=== PATIENT | female | born 1950 | race Caucasian/White ===

== ENCOUNTER → 2017-07-13 12:46 | Outpatient (CLI) | payer MEDICARE, SELFPAY ==
--- NOTE | 2017-07-14 06:25 | PFTCOMP ---
COMPLETE PULMONARY FUNCTION TEST INTERPRETATION Brief HPI: Patient is a 67 year old female, currently under the care of myself, who presents to [facility] for complete pulmonary function tests secondary to diagnosis of dyspnea. Respiratory therapist reports good effort and reproducible results. Interpretation: Forced expiration spirometry shows a mild large airways obstructive ventilatory defect with an FEV1 of 73 % predicted. There is no significant bronchodilator response by ATS criteria. Spirograms are of good quality and plateau slowly, indicating slowly emptying areas of the lungs. The respiratory flow volume loop shows decreased expiratory flow rates at all lung volumes consistent with airway obstruction. Lung volumes by body plethysmography show a normal total lung capacity at 4.36, 98 % predicted. All other lung volumes are within normal limits. Diffusion capacity by carbon monoxide is decreased at 55 % predicted. The airway resistance is normal. Compared to previous pulmonary function tests from 08/07/2013, there has been a significant change in FVC, FEV1 and total lung capacity. However, patient's DLCO is significantly reduced compared to previous. Impression: Irreversible mild large airways obstructive ventilatory defect with reduction diffusing capacity consistent with the diagnosis of COPD. There has been some improvement since 2013, but decreased DLCO may be secondary to a pulmonary vascular disorder.
== END ==
PROVIDERS: Family Provider Family Medicine; PCP Family Medicine; Visit Provider Internal Medicine Critical Care Medicine
DX: R06.02 Shortness of breath (principal); R06.00 Dyspnea, unspecified; R06.01 Orthopnea
CPT/HCPCS: 94060; 94726; 94729

== ENCOUNTER → 2017-07-30 13:22 | Outpatient (CLI) | payer MEDICARE, SELFPAY ==
--- NOTE | 2017-07-30 13:25 | HPBI_ITS ---
MAMMOGRAPHY - BILATERAL DIAGNOSTIC REASON FOR EXAM: Female, 67 years old. Remote left excisional breast biopsy. PERTINENT HISTORY: Non-contributory. TECHNIQUE: Digital bilateral breast deshawn (3D mammographic acquisition) in the CC and MLO projections. 2-D mediolateral oblique (MLO) and craniocaudad (CC) views of both breasts were obtained. CAD: Full Field Digital Mammography with Computer Added Detection was performed. COMPARISON: Comparison is made with prior examination dated August 27, 2012 and June 06, 2010. FINDINGS: Breast Composition: There are scattered areas of fibroglandular density. There are no dominant masses or suspicious calcifications. Stable benign-appearing bilateral axillary lymph nodes. No other significant abnormalities are identified. There has been no significant change since the prior study. HPBI/SCREENING MAMM (CAD), BILAT IMPRESSION: Stable bilateral diagnostic mammogram. One year follow-up recommended. (A) ASSESSMENT CATEGORY: BIRADS Category 2: Benign. A letter regarding these results will be sent to the patient by the facility within 30 days. Approximately 10% of breast cancers are not detected by mammography. A normal mammogram should not delay biopsy of a clinically suspicious abnormality. Electronically Signed: Jeyson Merritt MD at 15:30 EST Tel [phone], Service support ,
== END ==
PROVIDERS: Family Provider Family Medicine; PCP Family Medicine; Visit Provider Nurse Practitioner Women's Health
DX: Z12.31 Encounter for screening mammogram for malignant neoplasm of breast (principal)
CPT/HCPCS: 77063; 77067

== ENCOUNTER → 2017-11-20 12:10 | Outpatient (CLI) | payer MEDICARE, SELFPAY ==
--- NOTE | 2017-11-20 12:10 | DT_ITS ---
This patient was seen during an EMR downtime November 19, 2017 - November 26, 2017. This patient may have a combination of paper and electronic documentation or all paper documentation. All documentation is viewable within the e-chart portion of [employer] for each patient visit.
[2017-11-25 08:28] LABS: ALB/GLOB Ratio 0.9 RATIO (0.9-2.4); AST(SGOT) 26 U/L (15-37); Alanine Aminotransfer ALT/SGPT 39 U/L (13-56); Albumin, Serum 3.3 g/dL (3.2-5.0); Alkaline Phosphatase 117 U/L (45-117); BUN 16 mg/dL (7-18); BUN/Creat Ratio 16.8 RATIO (10-20); Calcium,Total 8.9 mg/dL (8.5-10.1); Creatinine, Serum 0.95 mg/dL (0.55-1.02); EST Glomerular Filtration Rate 62 mL/min (>60); Est Glom Filt Rate - Afr Amer 75 mL/min (>60); Globulin 3.5 g/dL (2.2-4.2); Glucose 191 mg/dL (74-106); Protein, Total 6.8 g/dL (6.4-8.2)
[2017-11-25 08:29] LABS: Anion Gap 10 (5-15); Chloride 99 mmol/L (98-107); Cholesterol 137 mg/dL (200); Hemoglobin A1c 9.9 % (4.2-6.3); High Density Lipoprotein 42 mg/dL; Potassium 3.8 mmol/L (3.5-5.1); Sodium Level 140 mmol/L (136-145); Thyroid Stim Hormone (TSH) 3.27 uIU/mL (0.358-3.74); Triglycerides 396 mg/dL; Very Low Density Lipoprotein 79 mg/dL (5-40)
[2017-11-25 19:31] LABS: Vitamin D,25 Hydroxy 43.7 ng/mL (29.95-100.01)
== END ==
LOC: MTLAB 11-24 08:43 → MFPLAB 11-24 17:14
PROVIDERS: Family Provider Family Medicine; PCP Family Medicine; Visit Provider Family Medicine
DX: E11.9 Type 2 diabetes mellitus without complications (principal); E55.9 Vitamin D deficiency, unspecified
CPT/HCPCS: 80053; 80061; 82306; 83036; 84443

== ENCOUNTER 2018-01-19 16:34 | Emergency (ER) | payer MEDICARE, SELFPAY ==
[2018-01-19 16:35] VITALS: BP 154/93; PULSE 87; RESP 16; TEMP 36.2; O2SAT 99; BMI 38.4
--- NOTE | 2018-01-19 17:20 | EKG12_ITS ---
Test Reason : DIZZNESS Blood Pressure : / mmHG Vent. Rate : 078 BPM Atrial Rate : 078 BPM P-R Int : 164 ms QRS Dur : 074 ms QT Int : 372 ms P-R-T Axes : 053 004 050 degrees QTc Int : 424 ms Normal sinus rhythm Normal ECG Confirmed by VARUN REDD, ABIGAIL ([id number]), general expeditor DEVIKA CASTELLANOS ([id number]) on 01/21/2018 1:34:35 PM Referred By: Catie Bucio Confirmed By:ABIGAIL BOND MD
[2018-01-19] MEDS: 0.9% Normal Saline 1,000 ML 1000 ML IV (17:41)
[2018-01-19 17:43] LABS: Absolute Lymphocyte Count 2.32 X10^3/ul (0.83-4.51); Absolute Neutrophil Count 4.8 X10^3/uL (2.0-7.7); Basophil# 0.02 X10^3/uL; Basophil% 0.2 % (0-1); Eosinophil# 0.13 X10^3/uL; Eosinophils% 1.6 % (0-5); Hematocrit 41.6 % (37-47); Hemoglobin 13.7 g/dl (12.0-15.0); Lymphocyte # 2.32 X10^3/ul (4.0); Lymphocyte % 28.9 % (19-41); Mean Corp Hgb Conc 32.9 g/gl (32-36); Mean Corpuscular Hgb 31.2 pg (27.0-32.0); Mean Corpuscular Volume 94.8 fL (81-99); Mean Platelet Vol. 11.7 fl (6.2-12.0); Monocyte# 0.73 X10^3/uL; Monocyte% 9.1 % (0-10); Neutrophil # 4.81 X10^3/uL (2.7-7.7); POSITIVE COUNT NO; POSITIVE DIFFERENTIAL NO; POSITIVE MORPHOLOGY NO; Platelet Count 268 K/mm3 (150-450); RBC Distribution Width CV 13.8 % (11.6-14.6); RBC Distribution Width SD 47.5 fl (35.1-43.9); Red Blood Count 4.39 M/mm3 (4.2-5.4)
[2018-01-19 17:49] LABS: Anion Gap 6 (5-15); BUN 16 mg/dL (7-18); Calcium,Total 9.5 mg/dL (8.5-10.1); Chloride 100 mmol/L (98-107); Creatinine, Serum 0.89 mg/dL (0.55-1.02); EST Glomerular Filtration Rate 67 mL/min (>60); Est Glom Filt Rate - Afr Amer 81 mL/min (>60); Estimated Creatinine Clearance 48.51 ml/min; Glucose 155 mg/dL (74-106); Potassium 3.8 mmol/L (3.5-5.1); Sodium Level 136 mmol/L (136-145)
[2018-01-19 17:53] LABS: Bacteria 0 SEEN /hpf (None Seen); Mucous, Urine 0 SEEN /hpf (<or=2+); Red Blood Cells-Urine 0 SEEN /hpf (0-5); White Blood Cells 0 SEEN /hpf (0-5)
[2018-01-19 17:59] LABS: Color, Urine Yellow (Yellow); Glucose, Dipstick Normal (Normal); Ketone-Dipstick Negative (Negative); Leukocyte Esterase-Dipstick Negative /ul (Negative); Nitrite-Dipstick Negative (Negative); Occult Blood-Urine Negative /ul (Negative); Protein-Dipstick Negative (Negative); Specific Gravity, Urine 1.005 (1.002-1.030); Urine Bilirubin Dipstick Negative (Negative); Urine Clarity Clear (Clear); Urine Urobilinogen Normal (Normal); Urine pH 6.5 (5.0 - 8.0)
[2018-01-19] MEDS: Ondansetron 4 MG/2 ML Vial IV (18:00)
[2018-01-19 18:14] LABS: Squamous Epithelial Cells - UA 0-5 SEEN /hpf (5-10)
--- NOTE | 2018-01-19 19:09 | ED.VISSUMM ---
- ER Visit Summary Date of Service: 01/19/18 Chief Complaint: Dizzy, nauseated History of Present Illness: The patient is a 67 F [place]. She slept until 130 this afternoon. Since getting up she has felt dizzy and nauseated. She describes it as both a lightheaded sensation and some spinning motion. She denies palpitations or chest pain. She denies headache. Past history significant for COPD, diabetes, hypertension, high cholesterol, spinal stenosis, hypothyroidism, sleep apnea. Physical Examination: Vital signs include blood pressure 154/93, otherwise normal. Patient sitting upright in bed no acute distress. Head neck examination is unremarkable. I do not appreciate any nystagmus. Heart is regular rate and rhythm. Lung sounds are clear. Abdomen is soft nontender. Neuro exam reveals good strength and sensation throughout on testing. Test Results: CBC and chemistry studies are significant only for glucose of 155. Urinalysis is normal. EKG is sinus at 78 with no sign of acute ischemia. Emergency Department Course and Treatment: Patient was given IV fluids and Zofran. On repeat evaluation she has been able to rest. Family states any time he tried to sit the back of the bed up she became more dizzy and want to lie back. She will be given a dose of Valium. On repeat evaluation patient feels significantly improved. She is able to walk to the bathroom and back without difficulty. She be given a prescription for Valium at home as needed for dizziness/vertigo. Treatment Plan: [] Disposition: Discharge Impression: Vertigo, improved This note was generated with [employer] dictation software. It may contain incorrect words, spelling, and punctuation that were not noted in review of the chart prior to signing ED Disposition - Plan for ED Patient: Disposition: Home or Assisted Living Chief Complaint: Dizziness Instructions: ED Vertigo Unspecified Prescriptions: Diazepam [Valium] 2 mg PO TID PRN PRN #10 tablet PRN Reason: Vertigo Referrals: Tom Mendez MD [Primary Care Provider] - 1 Week
[2018-01-19] MEDS: diazePAM 5 MG Tablet 2.5 MG PO (19:23)
[2018-01-19] MEDS: 0.9% Normal Saline 1,000 ML 150 ML IV (19:26)
[2018-01-19 19:44] VITALS: BP 124/64; PULSE 74; RESP 16; O2SAT 98
[2018-01-19 20:30] VITALS: BP 130/64; PULSE 83; RESP 16; O2SAT 96
--- NOTE | 2018-01-19 20:35 | ED.DEP ---
ED Disposition - Plan for ED Patient: Disposition: Home or Assisted Living Chief Complaint: Dizziness Instructions: ED Vertigo Unspecified Prescriptions: Diazepam [Valium] 2 mg PO TID PRN PRN #10 tablet PRN Reason: Vertigo Referrals: Tom Mendez MD [Primary Care Provider] - 1 Week
[2018-01-19 20:46] VITALS: BP 140/85; RESP 15; O2SAT 98
--- NOTE | 2018-01-19 20:47 | ED.RN ---
THIS RN EDUCATED PT AND FAMILY ON D/C INSTRUCTIONS AND HOME GOING PRESCRIPTIONS. PT VERBALIZES UNDERSTANDING AND DENIES ANY FURTHER QUESTIONS. IV D/C AND COVERED WITH 2X2 GAUZE DRESSING AND PAPER TAPE. MINIMAL BLEEDING NOTED. PT DRESSES SELF AND AMBULATES OUT OF DEPT WITH FAMILY.
== END 2018-01-19 20:50 | disposition home or self-care (01) ==
PROVIDERS: Emergency Provider Emergency Medicine; Family Provider Family Medicine; PCP Family Medicine
DX: R42 Dizziness and giddiness (principal); J44.9 Chronic obstructive pulmonary disease, unspecified; E11.9 Type 2 diabetes mellitus without complications; I10 Essential (primary) hypertension; E78.00 Pure hypercholesterolemia, unspecified; E03.9 Hypothyroidism, unspecified; M48.00 Spinal stenosis, site unspecified; G47.33 Obstructive sleep apnea (adult) (pediatric); Z72.0 Tobacco use; Z79.84 Long term (current) use of oral hypoglycemic drugs; Z79.899 Other long term (current) drug therapy
CPT/HCPCS: 80048; 81001; 85025; 93005; 96361; 96374; 99284; J7030; A4216; J2405

== ENCOUNTER → 2018-05-30 17:18 | Outpatient (CLI) | payer MEDICARE, SELFPAY ==
--- NOTE | 2018-05-30 17:21 | RAD_ITS ---
STUDY: X-RAY CHEST REASON FOR EXAM: Female, 68 years old. Cough TECHNIQUE: PA and lateral COMPARISON: June 16, 2017 FINDINGS: Bilateral perihilar interstitial reticulonodular infiltrates greater on the right. There is no demonstrated pleural abnormality. Heart is mildly enlarged Normal mediastinum and cindy. Normal visualized pulmonary arteries. Normal visualized aortic arch and descending thoracic aorta. Dorsal spine demonstrates spondylosis. Normal visualized ribs, clavicles, and shoulders. There is no demonstrated abnormality of the visualized soft tissue structures of the upper abdomen. RAD/Chest PA and Lateral IMPRESSION: Probable viral pneumonia greater on the right Electronically Signed: Terrence Castro MD at 18:31 EST , Service support ,
--- OUTSIDE RECORDS SUMMARY | 2018-07-16 14:33 | XMS RPT_ITS ---
:1950 Author Organization OHIP Support Name Relationship Address Phone MARYCRUZ MIX Unavailable [address] + [place] [address] R Unavailable Unavailable Unavailable MARIA DEL ROSARIOMARYCRUZ WANG Unavailable [address] + [place] [address] R Unavailable Unavailable Unavailable MARIA DEL ROSARIOMARYCRUZ WANG Unavailable [address] + [place] [address] R Unavailable Unavailable Unavailable MARIA DEL ROSARIOMARYCRUZ WANG Unavailable [address] + [place] [address] R Unavailable Unavailable Unavailable MARIA DEL ROSARIOMARYCRUZ Unavailable [address] + [place] [address] R Unavailable Unavailable Unavailable MARIA DEL ROSARIOMARYCRUZ Unavailable [address] + [place] [address] R Unavailable Unavailable Unavailable MARIA DEL ROSARIOMARYCRUZ WANG Unavailable [address] + [place] [address] R Unavailable Unavailable Unavailable MARIA DEL ROSARIOMARYCRUZ WANG Unavailable [address] + [place] [address] R Unavailable Unavailable Unavailable MARIA DEL ROSARIOMARYCRUZ WANG Unavailable [address] + [place] [address] R Unavailable Unavailable Unavailable MARIA DEL ROSARIOMARYCRUZ Unavailable [address] + [place] [address] R Unavailable Unavailable Unavailable MARIA DEL ROSARIOMARYCRUZ WANG Unavailable [address] + [place] [address] R Unavailable Unavailable Unavailable Care Team Providers Name Role Phone HARI URBINA Referring Unavailable HARI URBINA Attending Unavailable HARI URBINA Referring Unavailable GUANACO PANCHAL (TIERRA) Attending Unavailable Scott Mendez Attending Unavailable Scott Mendez Referring Unavailable Scott Mendez Primary Care Unavailable Scott Mendez Attending Unavailable Scott Mendez Referring Unavailable Ranney, Christopher Primary Care Unavailable Saul, Rohit Attending Unavailable Asul, Rohit Referring Unavailable [facility] Unavailable [place] schrader Attending Unavailable Ranwashburn, Wooldridge Primary Care Unavailable Ranwashburn, [place] Primary Care Unavailable Remington Conte Attending Unavailable Ranney, Christopher Attending Unavailable Ranney, Christopher Referring Unavailable [facility], [facility] Unavailable Saul, Rohit Attending Unavailable Saul, Rohit Referring Unavailable Saul, Rohit Attending Unavailable Ranney, Christopher Referring Unavailable Ranney, Christopher Attending Unavailable [facility] Unavailable [facility] Unavailable Catie Bucio Attending Unavailable Bucio, Catie Referring Unavailable Saul, Rohit Attending Unavailable Ranney, Christopher Referring Unavailable PROBLEMS PROBLEMS DATE TYPE CONDITION / CODE ATTENDING STATUS SOURCE 07/03/2018 Unknown 250.00 - Diabetes Ranney, Active [place] mellitus without [facility] mention of Hospital complication, type Repository II or unspecified type, not stated as uncontrolled / 250.00(ICD-9) 07/03/2018 Unknown E11.9 - Type 2 Ranney, Active [place] diabetes mellitus [facility] without Hospital complications / Repository E11.9(ICD-10) 05/31/2018 Unknown M79.661 - Pain in Ransavana, Active [place] right lower leg / [facility] M79.661(ICD-10) Hospital Repository 12/18/2017 Active Pain, unspecified / NA Active [place] R52(ICD-10) Clinic Other [place] Repository 07/25/2017 Unknown Z12.31 - Encounter Trang Dhillon Active [place] for screening Community mammogram for Hospital malignant neoplasm Repository of breast / Z12.31(ICD-10) 07/13/2017 Unknown R06.02 - Shortness Rohit Hughes Active [place] of breath / Community R06.02(ICD-10) Hospital Repository 07/13/2017 Unknown R06.00 - Dyspnea, SaulRohit veras Active [place] unspecified / Community R06.00(ICD-10) Hospital Repository 07/13/2017 Unknown R06.01 - Orthopnea Rohit Hughes Active [place] / R06.01(ICD-10) [facility]ly [facility] Repository PROCEDURES PROCEDURES No Procedure Records FoundRESULTS RESULTS BASIC METABOLIC Collected: 07/03/2018 Status: F Source: BILL PROFILE (BMP) 8:[facility] AM [facility] Order Comment: Order Date: 02/26/18 Order Info: 0667-1 - BMP Order Info: 84158-6 - LIPID TYPE CODE TESTS RESULT OUT OF RANGE REFERENCE UNITS LAB L501.0100 74-106 mg/dL High GLU 169 Result Comment: Fasting Glucose result greater than or equal to 126 mg/dL suggests DIABETES MELLITUS per A.D.A. criteria. Please note revised GLUCOSE reference range effective 2017. LAB L501.1000 7-18 mg/dL High BUN 21 LAB L501.1100 0.55-1.02 mg/dL Normal CREAT,SERUM 0.87 Result Comment: The validity of the calculated GFR AND GFRAA in patients over 70 years has not been determined. Clinical correlation is essential. LAB L501.1110 >60 mL/min Normal EST GFR 69 Result Comment: Non- GFR Calc LAB L501.1115 >60 mL/min Normal EST GFR - AA 84 Result Comment: GFR Calc LAB L501.1300 10-20 RATIO High BUN/CRE 24.2 LAB L501.2200 8.5-10.1 mg/dL CA Normal 9.1 LAB L501.5300 136-145 mmol/L NA Normal 138 LAB L501.5600 3.5-5.1 mmol/L K Normal 4.0 LAB L501.5900 98-107 mmol/L CL Normal 100 LAB L501.6100 21.0-32.0 mmol/L Normal CO2 29.0 LAB L501.6200 5-15 Normal GAP 9 Performed By: #### L500.2500, L500.4100 #### [facility] [address] [place], [address] LIPID PROFILE Collected: 07/03/2018 Status: F Source: BILL 8:56 AM [facility] REPOSITORY Order Comment: Order Date: 02/26/18 Order Info: 0667-1 - BMP Order Info: 31764-0 - LIPID TYPE CODE TESTS RESULT OUT OF RANGE REFERENCE UNITS LAB L501.4900 200 mg/dL Normal CHOL 184 Result Comment: <200 mg/dL Desirable 200-240 mg/dL Borderline >240 mg/dL High Risk LAB L501.5000 mg/dL High TRIG 435 Result Comment: The drugs N-Acetylcysteine and Metamizole may falsely depress this assay. TRIGLYCERIDE IS GREATER THAN 400 mg/dL. LDL RESULT IS INVALID AND WILL NOT BE REPORTED. Serum Triglycerides Reference Interval Normal <150 mg/dL Borderline high 150 - 199 mg/dL High 200 - 499 mg/dL Very High > or = 500 mg/dL LAB L501.6400 mg/dL Normal HDL 45 Result Comment: The drugs N-Acetylcysteine and Metamizole may falsely depress this assay. Reference Range HDL <40 mg/dL Low HDL Cholesterol HDL >or= 60 mg/dL High HDL Cholesterol LAB L501.6500 0-130 mg/dL Test Normal not performed LDL LAB L501.6600 5-40 mg/dL Test Normal not performed VLDL Performed By: #### L500.2500, L500.4100 #### [facility] [address] [place], [address] 12 LEAD ELECTROCARDIOGRAM Observed: 06/05/2018 Status: F Source: [place] 3:34 PM [facility] REPOSITORY [facility] Cardiovascular Services [address] [place] [address] 12 Lead EKG 05/31/18 1447 MR#: [id number] Acct: [id number] Name: ABBI SHOOK Rep #: [id number] : 1950 68 From: Edward Merrill MD Attending Dr: Status: DEP Ordering Dr: Remington Conte MD Date: 05/31/18 Location: ED Sex: F C Admitted: Test Reason : ABN LABS Blood Pressure : / mmHG Vent. Rate : 081 BPM Atrial Rate : 081 BPM P-R Int : 166 ms QRS Dur : 080 ms QT Int : 386 ms P-R-T Axes : 066 048 063 degrees QTc Int : 448 ms Normal sinus rhythm Normal ECG Confirmed by EDWARD MERRILL MD ([id number]), staff editor DEVIKA CASTELLANOS ([id number]) on 06/05/2018 3:34:23 PM Referred By: DC Confirmed By:EDWARD MERRILL MD 06/05/18 1534 Date Edward Merrill MD CC: Scott Mendez MD; Remington Conte MD Signed VENOUS DUPLEX LOWER Observed: 06/01/2018 Status: F Source: BILL EXTREMITY 1:46 PM [facility] REPOSITORY [facility] Cardiovascular Services [address] [address] Venous Duplex US, Unilateral 05/31/18 1112 MR#: [id number] Acct: [id number] Name: ABBI SHOOK Rep #: [id number] : 1950 68 From: Slim Jacobson MD Attending Dr: Scott Mendez MD Status: REG CLI Ordering Dr: Tom Mendez MD Date: 05/31/18 Location: CVS Sex: F C Admitted: Reason For Study: RLE PAIN (CALF) RIGHT LEFT GSV is normal. CFV is compressible, spontaneous, phasic, CFV is compressible, spontaneous, phasic, competent, and demonstrates normal competent and demonstrates normal augmentation. augmentation. FV is compressible, spontaneous, phasic, competent and demonstrates normal augmentation. POP V is compressible, spontaneous, phasic, competent and demonstrates normal augmentation. T/P Trunk is compressible. PTV is compressible. RT PerV is compressible. Procedure Exam performed in department. The exam was diagnostic. A preliminary report was called and/or faxed to Andrea Muir @ 11:25 am @ [phone]. Interpretation Summary Deep veins of the right lower extremity are patent and compressible segmentally. There is no evidence of right lower extremity deep vein thrombosis. Valvular competence appears intact within the proximal deep venous system on the right . The right greater saphenous vein appears patent and compressible segmentally. Ordering Physician: Scott Mendez Referring Physician: Scott Mendez Performed By: Marbella Hilliard, RDCS, RVT 06/01/18 1345 Date Slim Jacobson MD CC: Scott Mendez MD Date Dictated: 05/31/18 1112 Date Transcribed: 06/01/18 1345 Ship Runner: Signed DISCHARGE INSTRUCTION Observed: 05/31/2018 Status: F Source: BILL 4:14 PM [facility] HOSPITAL REPOSITORY [facility] Medical Records Department [address] [place] [address] Discharge Instruction 05/31/18 1602 MR#: [id number] Acct: [id number] Name: ABBI SHOOK Rep #: [id number] : 1950 68 From: Remington Conte MD PCP: Scott Mendez MD Status: REG ER ED Disposition - Plan for ED Patient: Chief Complaint: Abn Labs Instructions: D-Dimer Referrals: Tom Mendez MD [Primary Care Provider] - What to do if you have Problems For any increased pain, shortness of breath, bleeding, nausea or vomiting, chest pain, or any unexpected problems, contact your Primary Care Provider. Call [facility] ([phone]) or report to the closest Emergency Room. Call 911 if necessary. 05/31/18 1614 <Electronically signed by Remington Conte MD> Date [facility] Conte MD [facility] Signature (If Indicated): Date CC: Scott Mendez MD EMERGENCY DEPARTMENT Observed: 05/31/2018 Status: F Source: BILL SUMMARY 4:14 PM [facility] HOSPITAL REPOSITORY [facility] Medical Records Department [address] [facility] [place] [address] Emergency Department Summary 12/14/18 1559 MR#: [id number] Acct: [id number] Name: ABBI SHOOK Rep #: [id number] : 1950 68 From: Remington Conte MD PCP: Scott Mendez MD Status: REG ER - ER Visit Summary Date of Service: 05/31/18 Chief Complaint: Here for a lung x-ray History of Present Illness: The patient is a 68 F who is here for further evaluation. She tells me that she has been having right leg swelling and pain. She had an ultrasound earlier today that was negative. She then underwent d-dimer testing which was elevated. She was referred for further evaluation. She says she has been feeling sick for about a week. She had some flulike symptoms, dry heaves, fatigue. She did have a recent chest x-ray which was unremarkable. She was started on antibiotics. No history of PE. No history of heart disease. She does have a history of COPD. Smoker. Physical Examination: Afebrile and vital signs unremarkable. No acute distress. Alert and oriented. Nontoxic. Heart regular. Lungs clear. Extremities unremarkable Test Results: EKG showed sinus rhythm at a rate of 81. No sign of acute ischemia or infarction pattern. Labs including troponin were unremarkable. CTA showed no evidence of PE or other acute pathology. Emergency Department Course and Treatment: Patient here for rule out PE. CTA negative. There is no indication for admission or further testing at this time. She was discharged to follow-up with her doctor. Treatment Plan: As above Disposition: Discharge Impression: 1. Right leg swelling This note was generated with Zuora dictation software. It may contain incorrect words, spelling, and punctuation that were not noted in review of the chart prior to signing ED Disposition - Plan for ED Patient: Chief Complaint: Abn Labs Referrals: Tom Mendez MD [Primary Care Provider] - What to do if you have Problems For any increased pain, shortness of breath, bleeding, nausea or vomiting, chest pain, or any unexpected problems, contact your Primary Care Provider. Call [facility] ([phone]) or report to the closest Emergency Room. Call 911 if necessary. 05/31/18 4975 <Electronically signed by Remington Conte MD> Date Remington Henriquezignshakila Signature (If Indicated): Date CC: Scott Mendez MD CBC W/DIFF, AUTOMATED Collected: 05/31/2018 Status: F Source: BILL 2:55 PM [facility] REPOSITORY TYPE CODE TESTS RESULT OUT OF RANGE REFERENCE UNITS LAB L100.1000 4.4-11.0 K/mm3 Normal WBC 7.2 LAB L100.1200 4.2-5.4 M/mm3 Low RBC 3.92 LAB L100.1300 12.0-15.0 g/dl Low HGB 11.9 LAB L100.1400 37-47 % Low HCT 36.9 LAB L100.1500 81-99 fL Normal MCV 94.1 LAB L100.1600 27.0-32.0 pg Normal MCH 30.4 LAB L100.1700 32-36 g/gl Normal MCHC 32.2 LAB L100.1810 11.6-14.6 % Normal RDW CV 13.4 LAB L100.1820 35.1-43.9 fl High RDW SD 45.8 LAB L100.1900 150-450 K/mm3 Normal PLT 224 LAB L100.2000 6.2-12.0 fl Normal MPV 10.3 LAB L100.2100 47-70 % Normal NEUT% 69.4 LAB L100.2200 19-41 % Normal LY% 20.1 LAB L100.2300 0-10 % Normal MONO% 7.7 LAB L100.2400 0-5 % Normal EO% 1.4 LAB L100.2500 0-1 % Normal BASO% 0.4 LAB L100.2550 0.0-0.9 % High IM GRAN % 1.000 Result Comment: IG% - Immature Granulocytes (promyelocytes, myelocytes and metamyelocytes) > 1% indicates that a LEFT SHIFT is Present. LAB L100.2620 2.0-7.7 X10 3/uL Normal Absolute Neut 5.0 LAB L100.2720 0.83-4.51 X10 3/ul Normal Absolute Lymph 1.45 Performed By: #### L100.0100 #### [facility] [address] [facility] [place], [address] BASIC METABOLIC Collected: 05/31/2018 Status: F Source: [place] PROFILE (BMP) 2:55 PM [facility] REPOSITORY TYPE CODE TESTS RESULT OUT OF RANGE REFERENCE UNITS LAB L501.0100 74-106 mg/dL High GLU 236 Result Comment: Glucose result greater than or equal to 200 mg/dL suggests DIABETES MELLITUS per A.D.A. criteria. Please note revised GLUCOSE reference range effective 2017. LAB L501.1000 7-18 mg/dL Normal BUN 17 LAB L501.1100 0.55-1.02 mg/dL Normal CREAT,SERUM 0.91 Result Comment: The validity of the calculated GFR AND GFRAA in patients over 70 years has not been determined. Clinical correlation is essential. LAB L501.1110 >60 mL/min Normal EST GFR 65 Result Comment: Non- GFR Calc LAB L501.1115 >60 mL/min Normal EST GFR - AA 79 Result Comment: GFR Calc LAB L501.1255 ml/min Normal Estimated CRCL 46.80 LAB L501.1300 10-20 RATIO Normal BUN/CRE 18.7 LAB L501.2200 8.5-10 mg/dL Normal .1 CA 8.6 LAB L501.5300 136-14 mmol/L Normal 5 NA 139 LAB L501.5600 3.5-5. mmol/L Normal 1 K 4.0 LAB L501.5900 98-107 mmol/L Normal CL 103 LAB L501.6100 21.0-3 mmol/L Normal 2.0 CO2 27.0 LAB L501.6200 5-15 Normal GAP 9 Performed By: #### L500.2500, L501.4010 #### [facility] [address] [place], [place], [address] TROPONIN-I Collected: 05/31/2018 Status: F Source: [place] 2:55 PM [facility] REPOSITORY TYPE CODE TESTS RESULT OUT OF RANGE REFERENCE UNITS LAB L501.4010 <0.045 ng/mL Normal < 0.015 TROPONIN-I Result Comment: TROPONIN-I EXPECTED VALUES <0.045 Negative 0.045 - 0.590 Consistent with Cardiac Damage > OR = 0.600 Critical Value Not every elevated troponin is indicative of LA. These values should be used with clinical judgement in examining the patient's clinical picture for diagnosis. To establish a diagnosis of LA versus myocardial injury, there must be a demonstrated rise and/or fall in the troponin values, in addition to ischemic symptoms, EKG changes, new regional wall motion abnormality, and/or angiographical evidence. PLEASE NOTE: REFERENCE RANGES EDITED 17 Performed By: #### L500.2500, L501.4010 #### [facility] [address] [facility] [place], [address] CTA CHEST W/WO Observed: 05/31/2018 Status: F Source: [place] CONTRAST 2:38 PM [facility] REPOSITORY [facility] Imaging Services [address] [place] [address] CTA Chest W/WO Contrast MR#: [id number] Acct: [id number] Name: ABBI SHOOK Rep #: [id number] : 1950 F 68 From: Jeyson Merritt MD PCP: Scott Mendez MD Status: REG ER Study: CTA Chest W/WO Contrast Date of Exam: 05/31/18 Exam# [id number] Ordering Dr: Remington Conte MD STUDY: CTA CHEST REASON FOR EXAM: Female, 68 years old. Elevated d-dimer. RADIATION DOSAGE (If Supplied By Facility): CTDIvol = ( 20.03 ) mGy, DLP = ( 677.87 ) mGycm TECHNIQUE: The examination was performed with the intravenous administration of 100 ml of Isovue 370 contrast material. Post-processing of the angiographic images was performed, with multiplanar reformation and 3D reconstruction. Individualized dose optimization techniques were used for this CT. COMPARISON: Comparison is made with prior study dated July 14, 2013. FINDINGS: Normal enhancement of the main pulmonary artery and right and left pulmonary arteries. Normal enhancement of the bilateral peripheral pulmonary arteries. There is no demonstrated pulmonary embolism. Normal thoracic aorta and visualized great vessels. There is no demonstrated aortic dissection. Minimal thickening of the posterior basal aspect of the pericardium. Normal mediastinum. Normal hilar regions. Normal visualized trachea and bronchi. The lungs are well expanded. Normal pulmonary parenchyma. Normal pleura. Normal chest wall structures. There are degenerative changes of thoracic spine. Diffuse fatty infiltration of the liver. CT/CTA Chest W/WO Contrast IMPRESSION: There is no evidence of pulmonary embolism. Diffuse fatty infiltration of the liver. Electronically Signed: Jeyson Merritt MD at 15:50 EST Tel [phone], Service support , CC: Scott Mendez MD; Remington Conte MD Ship Runner: Signed D-DIMER QUANTITATIVE Collected: 05/31/2018 Status: F Source: [place] (DVT/PE) 11:58 AM [facility] REPOSITORY TYPE CODE TESTS RESULT OUT OF RANGE REFERENCE UNITS LAB L300.8000 0.27-0.49 FEU/ug/m High alert D-DIMER 0.74 QUANT Result Comment: D-Dimer ELEVATED (>0.49): Additional studies and clinical assessments are indicated to conclude diagnosis of: Deep Vein Thrombosis (DVT) or Pulmonary Embolism (PE) CRITICAL VALUE VERIFIED. CALLED TO dr. martin 05/31/18 1342 Sowmya lisa. RESULTS READ BACK BY same . Performed By: #### L300.8000 #### [facility] [address] [facility] [place], [address] CHEST PA AND LATERAL Observed: 05/30/2018 Status: F Source: [place] 5:21 PM [facility] REPOSITORY [facility] Imaging Services [address] [place] [address] Chest PA and Lateral MR#: [id number] Acct: [id number] Name: ABBI SHOOK Rep #: [id number] : 1950 F 68 From: Terrence Castro MD PCP: Scott Mendez MD Status: REG CLI Study: Chest PA and Lateral Date of Exam: 05/30/18 Exam# [id number] Ordering Dr: Tom Mendez MD STUDY: X-RAY CHEST REASON FOR EXAM: Female, 68 years old. Cough TECHNIQUE: PA and lateral COMPARISON: June 16, 2017 FINDINGS: Bilateral perihilar interstitial reticulonodular infiltrates greater on the right. There is no demonstrated pleural abnormality. Heart is mildly enlarged Normal mediastinum and cindy. Normal visualized pulmonary arteries. Normal visualized aortic arch and descending thoracic aorta. Dorsal spine demonstrates spondylosis. Normal visualized ribs, clavicles, and shoulders. There is no demonstrated abnormality of the visualized soft tissue structures of the upper abdomen. RAD/Chest PA and Lateral IMPRESSION: Probable viral pneumonia greater on the right Electronically Signed: Terrence Csatro MD at 18:31 EST , Service support , CC: Scott Mendez MD Ship Runner: Signed 12 LEAD ELECTROCARDIOGRAM Observed: 01/21/2018 Status: F Source: [place] 1:35 PM [facility] REPOSITORY [facility] Cardiovascular Services [address] [place] [address] 12 Lead EKG 01/19/18 1738 MR#: [id number] Acct: [id number] Name: ABBI SHOOK Rep #: [id number] : 1950 67 From: Syed Bond MD Attending Dr: Status: DEP ER Ordering Dr: Catie Bucio MD Date: 01/19/18 Location: ED Sex: F C Admitted: Test Reason : DIZZNESS Blood Pressure : / mmHG Vent. Rate : 078 BPM Atrial Rate : 078 BPM P-R Int : 164 ms QRS Dur : 074 ms QT Int : 372 ms P-R-T Axes : 053 004 050 degrees QTc Int : 424 ms Normal sinus rhythm Normal ECG Confirmed by VARUN REDD, SYED ([id number]), staff editor DEVIKA CASTELLANOS ([id number]) on 01/21/2018 1:34:35 PM Referred By: Catie Bucio Confirmed By:SYED BOND MD 01/21/18 1334 Date Syed Bond MD CC: Scott Mendez MD; Catie Bucio MD Signed EMERGENCY DEPARTMENT Observed: 01/19/2018 Status: F Source: [place] SUMMARY 10:27 PM [facility] REPOSITORY [facility] Medical Records Department [address] [place] [address] Emergency Department Summary 01/19/18 1909 MR#: [id number] Acct: [id number] Name: ABBI SHOOK Rep #: [id number] : 1950 67 From: Catie Bucio MD PCP: Scott Mendez MD Status: DEP ER - ER Visit Summary Date of Service: 01/19/18 Chief Complaint: Dizzy, nauseated History of Present Illness: The patient is a 67 F [place]. She slept until 130 this afternoon. Since getting up she has felt dizzy and nauseated. She describes it as both a lightheaded sensation and some spinning motion. She denies palpitations or chest pain. She denies headache. Past history significant for COPD, diabetes, hypertension, high cholesterol, spinal stenosis, hypothyroidism, sleep apnea. Physical Examination: Vital signs include blood pressure 154/93, otherwise normal. Patient sitting upright in bed no acute distress. Head neck examination is unremarkable. I do not appreciate any nystagmus. Heart is regular rate and rhythm. Lung sounds are clear. Abdomen is soft nontender. Neuro exam reveals good strength and sensation throughout on testing. Test Results: CBC and chemistry studies are significant only for glucose of 155. Urinalysis is normal. EKG is sinus at 78 with no sign of acute ischemia. Emergency Department Course and Treatment: Patient was given IV fluids and Zofran. On repeat evaluation she has been able to rest. Family states any time he tried to sit the back of the bed up she became more dizzy and want to lie back. She will be given a dose of Valium. On repeat evaluation patient feels significantly improved. She is able to walk to the bathroom and back without difficulty. She be given a prescription for Valium at home as needed for dizziness/vertigo. Treatment Plan: [] Disposition: Discharge Impression: Vertigo, improved This note was generated with Zuora dictation software. It may contain incorrect words, spelling, and punctuation that were not noted in review of the chart prior to signing ED Disposition - Plan for ED Patient: Disposition: Home or Assisted Living Chief Complaint: Dizziness Instructions: ED Vertigo Unspecified Prescriptions: Diazepam [Valium] 2 mg PO TID PRN PRN #10 tablet PRN Reason: Vertigo Referrals: Tom Mendez MD [Primary Care Provider] - 1 Week What to do if you have Problems For any increased pain, shortness of breath, bleeding, nausea or vomiting, chest pain, or any unexpected problems, contact your Primary Care Provider. Call [facility] ([phone]) or report to the closest Emergency Room. Call 911 if necessary. 01/19/182226 <Electronically signed by Catie Bucio MD> Date Catie Bucio MD Cosigner Signature (If Indicated): Date CC: Scott Mendez MD DISCHARGE INSTRUCTION Observed: 01/19/2018 Status: F Source: BILL 9:24 PM [facility] REPOSITORY [facility] Medical Records Department [address] [place] [address] Discharge Instruction 01/19/182121 MR#: [id number] Acct: [id number] Name: ABBI SHOOK Rep #: [id number] : 1950 67 From: Catie Bucio MD PCP: Scott Mendez MD Status: [facility] ER ED Disposition - Plan for ED Patient: Disposition: Home or Assisted Living Chief Complaint: Dizziness Instructions: ED Vertigo Unspecified Prescriptions: Diazepam [Valium] 2 mg PO TID PRN PRN #10 tablet PRN Reason: Vertigo Referrals: Tom Mendez MD [Primary Care Provider] - 1 Week What to do if you have Problems For any increased pain, shortness of breath, bleeding, nausea or vomiting, chest pain, or any unexpected problems, contact your Primary Care Provider. Call [facility] ([phone]) or report to the closest Emergency Room. Call 911 if necessary. 01/19/182123 <Electronically signed by Catie Bucio MD> Date Catie Bucio MD Cosigner Signature (If Indicated): Date CC: Scott Mendez MD DISCHARGE INSTRUCTION Observed: 01/19/2018 Status: F Source: [place] 8:36 PM [facility] REPOSITORY [facility] Medical Records Department [address] [place] [id number] Discharge Instruction 01/19/182034 MR#: [id number] Acct: [id number] Name: ABBI SHOOK Rep #: [id number] : 1950 67 From: Catie Bucio MD PCP: Scott Mendez MD Status: [facility] ER ED Disposition - Plan for ED Patient: Disposition: Home or Assisted Living Chief Complaint: Dizziness Instructions: ED Vertigo Unspecified Prescriptions: Diazepam [Valium] 2 mg PO TID PRN PRN #10 tablet PRN Reason: Vertigo Referrals: Tom Mendez MD [Primary Care Provider] - 1 Week What to do if you have Problems For any increased pain, shortness of breath, bleeding, nausea or vomiting, chest pain, or any unexpected problems, contact your Primary Care Provider. Call [facility] ([phone]) or report to the closest Emergency Room. Call 911 if necessary. 01/19/182035 <Electronically signed by Catie Bucio MD> Date Catie Bucio MD Cosigner Signature (If Indicated): Date CC: Scott Mendez MD CBC W/DIFF, AUTOMATED Collected: 01/19/2018 Status: F Source: [place] 5:00 PM [facility] REPOSITORY TYPE CODE TESTS RESULT OUT OF RANGE REFERENCE UNITS LAB L100.1000 4.4-11.0 K/mm3 Normal WBC 8.0 LAB L100.1200 4.2-5.4 M/mm3 Normal RBC 4.39 LAB L100.1300 12.0-15.0 g/dl Normal HGB 13.7 LAB L100.1400 37-47 % Normal HCT 41.6 LAB L100.1500 81-99 fL Normal MCV 94.8 LAB L100.1600 27.0-32.0 pg Normal MCH 31.2 LAB L100.1700 32-36 g/gl Normal MCHC 32.9 LAB L100.1810 11.6-14.6 % Normal RDW CV 13.8 LAB L100.1820 35.1-43.9 fl High RDW SD 47.5 LAB L100.1900 150-450 K/mm3 Normal PLT 268 LAB L100.2000 6.2-12.0 fl Normal MPV 11.7 LAB L100.2100 47-70 % Normal NEUT% 60.0 LAB L100.2200 19-41 % Normal LY% 28.9 LAB L100.2300 0-10 % Normal MONO% 9.1 LAB L100.2400 0-5 % Normal EO% 1.6 LAB L100.2500 0-1 % Normal BASO% 0.2 LAB L100.2550 0.0-0.9 % Normal IM GRAN % 0.200 Result Comment: IG% - Immature Granulocytes (promyelocytes, myelocytes and metamyelocytes) > 1% indicates that a LEFT SHIFT is Present. LAB L100.2620 2.0-7.7 X10 3/uL Normal Absolute Neut 4.8 LAB L100.2720 0.83-4.51 X10 3/ul Normal Absolute Lymph 2.32 Performed By: #### L100.0100 #### [facility] [address] [facility]. [place], [place], [id number] BASIC METABOLIC Collected: 01/19/2018 Status: F Source: [place] PROFILE (BMP) 5:00 PM [facility] REPOSITORY TYPE CODE TESTS RESULT OUT OF RANGE REFERENCE UNITS LAB L501.0100 74-106 mg/dL High GLU 155 Result Comment: Fasting Glucose result greater than or equal to 126 mg/dL suggests DIABETES MELLITUS per A.D.A. criteria. Please note revised GLUCOSE reference range effective 2017. LAB L501.1000 7-18 mg/dL Normal BUN 16 LAB L501.1100 0.55-1.02 mg/dL Normal CREAT,SERUM 0.89 Result Comment: The validity of the calculated GFR AND GFRAA in patients over 70 years has not been determined. Clinical correlation is essential. LAB L501.1110 >60 mL/min Normal EST GFR 67 Result Comment: Non- GFR Calc LAB L501.1115 >60 mL/min Normal EST GFR - AA 81 Result Comment: GFR Calc LAB L501.1255 ml/min Normal Estimated CRCL 48.51 LAB L501.1300 10-20 RATIO Normal BUN/CRE 18.0 LAB L501.2200 8.5-10 mg/dL Normal .1 CA 9.5 LAB L501.5300 136-14 mmol/L Normal 5 NA 136 LAB L501.5600 3.5-5. mmol/L Normal 1 K 3.8 LAB L501.5900 98-107 mmol/L Normal CL 100 LAB L501.6100 21.0-3 mmol/L Normal 2.0 CO2 30.0 LAB L501.6200 5-15 Normal GAP 6 Performed By: #### L500.2500 #### [facility] [address] [facility]. [place], [place], [id number] URINALYSIS, COMPLETE Collected: 01/19/2018 Status: F Source: [place] 5:00 PM [facility] REPOSITORY Order Comment: How was Urine Obtained? CLEAN CATCH TYPE CODE TESTS RESULT OUT OF RANGE REFERENCE UNITS LAB L400.3000 Yellow COLOR Normal Yellow LAB L400.3050 Clear Normal CLARITY Clear LAB L400.3200 Normal mg/dl Normal GLUCOSE, UR Normal LAB L400.3300 Negative mg/dL Normal BILIRUBIN URINE Negative LAB L400.3400 Negative mg/dl Normal KETONE UR Negative LAB L400.3465 1.002-1.030 Normal SP.GR. DIPSTX 1.005 LAB L400.3550 5.0 - 8.0 pH UR Normal 6.5 LAB L400.3600 Negative mg/dl PROT Normal DIPSTX Negative LAB L400.3700 Normal mg/dl Normal UROBILI Normal LAB L400.3750 Negative Normal NITRITE UR Negative LAB L400.3780 Negative /ul Normal OCCULT BLOOD-UR Negative LAB L400.3800 Negative /ul LEUK Normal ESTERASE Negative LAB L400.4050 0-5 /hpf WBC 0 Normal SEEN LAB L400.4100 0-5 /hpf 0 Normal RBC-UA SEEN LAB L400.4150 5-10 /hpf SQUAM Normal EPI 0-5 SEEN LAB L400.4300 None Seen /hpf 0 Normal BACTERIA SEEN LAB L400.4350 <or=2+ /hpf 0 Normal MUCUS, URINE SEEN Performed By: #### L400.0001 #### [facility] [place], [address] PROGRESS Observed: 01/16/2018 Status: COMPLETED Source: [place] 6:18 PM [facility] REPOSITORY O ID: [id number] Author: Hari Urbina Service: (none) Author Type: Physician Type: Progress Notes Filed: 01/16/2018 6:23 PM Note Text: PROCEDURE- JOINT INJECTION Joint Sites: knee She has had previous injections in the past. On exam, the joint is cool to touch without sign of infection. Flexion is limited and is uncomfortable. Crepitation is present with ROM. The proposed risks versus benefits of local anesthetic and steroid injection were discussed in detail. The patient verbalizes understanding and elects to proceed with the injection. The procedure was verified with the patient, including the correct injection site, and confirmation with both the patient and it support consultant. Under sterile technique following verbal consent the patient underwent a left knee injection with 2cc of 6 mg/ml Celestone with 3 cc 1% Lidocaine and tolerated the procedure well without complications. The injection was performed through a superior-lateral portal to the knee without incident. The patient tolerated the injection well. Verbal instructions on post-injection care were given. Hari Urbina MD PROGRESS Observed: 12/25/2017 Status: COMPLETED Source: [place] 10:43 AM [facility] REPOSITORY HNO ID: [id number] Author: Guanaco Panchal (Pa) Service: (none) Author Type: Physician Associate Professor Of Theatre Type: Progress Notes Filed: 12/25/2017 10:46 AM Note Text: Abbi comes in today for a right knee injection. Dr. Urbina injected the left knee last week and Abbi reports no pain in the left and tolerated the injection without issue. The right knee has medial joint line pain and has limited motion due to the discomfort. PROCEDURE- JOINT INJECTION Joint Sites: knee She has had previous injections in the past. On exam, the joint is cool to touch without sign of infection. Flexion is limited and is uncomfortable. Crepitation is present with ROM. The proposed risks versus benefits of local anesthetic and steroid injection were discussed in detail. The patient verbalizes understanding and elects to proceed with the injection. The procedure was verified with the patient, including the correct injection site, and confirmation with both the patient and it support consultant. Under sterile technique following verbal consent the patient underwent a right knee injection with 2cc of 6 mg/ml Celestone with 3 cc 1% Lidocaine and tolerated the procedure well without complications. The injection was performed through a superior-lateral portal to the knee without incident. The patient tolerated the injection well. Verbal instructions on post-injection care were given. Guanaco Panchal PA-C CNOV Observed: 12/25/2017 Status: COMPLETED Source: [place] 10:00 AM [facility] REPOSITORY Office Visit (ORMDNA) ABBI SHOOK ([id number]) 1950 F Date Time Provider Department 12/25/17 10:00 AM GUANACO PANCHAL (PA) During your visit today, we recorded the following information about you: Hilda Song Ken 12/25/2017 10:06 AM Signed Patient presents with: Right Knee Pain: Cortisone Injection Guanaco Panchal PA-C 12/25/2017 10:46 AM Signed Abbi comes in today for a right knee injection. Dr. Urbina injected the left knee last week and Abbi reports no pain in the left and tolerated the injection without issue. The right knee has medial joint line pain and has limited motion due to the discomfort. PROCEDURE- JOINT INJECTION Joint Sites: knee She has had previous injections in the past. On exam, the joint is cool to touch without sign of infection. Flexion is limited and is uncomfortable. Crepitation is present with ROM. The proposed risks versus benefits of local anesthetic and steroid injection were discussed in detail. The patient verbalizes understanding and elects to proceed with the injection. The procedure was verified with the patient, including the correct injection site, and confirmation with both the patient and it support consultant. Under sterile technique following verbal consent the patient underwent a right knee injection with 2cc of 6 mg/ml Celestone with 3 cc 1% Lidocaine and tolerated the procedure well without complications. The injection was performed through a superior-lateral portal to the knee without incident. The patient tolerated the injection well. Verbal instructions on post-injection care were given. Guanaco Panchal PA-C Referring Provider: SELF [[id number]] Allergies As of Date: 12/25/2017 Noted Allergy Reaction NICKEL 07/01/2010 16 - Unknown PENICILLINS 02/01/2010 Date Reviewed: 12/25/2017 Reviewed by: Guanaco Panchal (Pa) - Fully Assessed Reason for Visit: Right Knee Pain [1209] Cmt: Cortisone Injection Primary Visit Diagnosis:Primary osteoarthritis of right knee [M17.11] Order(s):[] betamethasone acetate-betamethasone sodium phosphate 2 mg, lidocaine (PF) 10 mg/mL (1 %) 30 mgDisp: Rfl: Prescriptions as of 12/25/2017 Sig: LINAGLIPTIN 5 MG TABLET Take by mouth. SPIRIVA WITH HANDIHALER 18 MC* Inhale 18 mcg as instructed o* METFORMIN ER 500 MG TABLET,EX* Take 1 tablet by mouth twice * FUROSEMIDE 40 MG TABLET Take 40 mg by mouth as needed. SINGULAIR ORAL Take by mouth once daily. PROAIR HFA INHALATION Inhale as instructed as need* ALBUTEROL SULFATE HFA 90 MCG/* Inhale 2 Puffs as instructed * FLUTICASONE 100 MCG-SALMETERO* Inhale 1 Puff as instructed t* KRILL OIL 1,000 MG-OM3 130 M* Take by mouth. CHOLECALCIFEROL (VITAMIN D3) * Take 1 tablet by mouth once d* LISINOPRIL 5 MG TABLET Take 5 mg by mouth once daily. SYNTHROID 50 MCG TABLET once daily. METOPROLOL SUCCINATE ER 100 M* once daily. * TRAMADOL 50 MG TABLET as needed. * CYMBALTA 60 MG CAPSULE,DELAYE* * ROSUVASTATIN 10 MG TABLET Take one(1) tablet at bedtime. * PREVACID 30 MG CAPSULE,DELAYE* Take one(1) capsule daily. Problem List As Of Date 12/25/2017 Noted Resolved L4-5 degenerative disk disease [M54.5] INVALID FOR* spinal stenosis [M54.5] INVALID FOR* ENTHESOPATHY OF HIP [M76.899] INVALID FOR* Hip Replacement Arthroplasty INVALID FOR* Hip Arthritis [M16.10] INVALID FOR* Spinal stenosis, lumbar region, without neuroge*INVALID FOR* Thoracic or lumbosacral neuritis or radiculitis*INVALID FOR* Lumbosacral spondylosis without myelopathy [M47*INVALID FOR* Hip pain [M25.559] INVALID FOR* Dysphagia [R13.10] INVALID FOR* Abdominal cramping [R10.9] INVALID FOR* Dupuytren's contracture of left hand [M72.0] INVALID FOR* Blood per rectum [K62.5] INVALID FOR* Type 2 diabetes mellitus without retinopathy (H*INVALID FOR* Punctate keratitis, bilateral [H16.143] INVALID FOR* Vitreous floaters of both eyes [H43.393] INVALID FOR* Visit Notes: >> Hilda Song Ma sachin Dec 25, 2017 10:06 AM Status: Signed Patient presents with: Right Knee Pain: Cortisone Injection Prescriptions ordered this encounter Disp Refills Start End CAM GUERO INJECTION BUILDER 12/25/2017 12/25/2017 Class: Suppress Questions Route: IAtc Encounter Status:Closed by GUANACO PANCHAL PA-C on 12/25/17 CNDEB Observed: 12/18/2017 Status: COMPLETED Source: [place] 1:00 PM [facility] REPOSITORY Office Visit (ORMDNA) ABBI SHOOK ([id number]) 1950 F Date Time Provider Department 12/18/17 1:00 PM HARI URBINA During your visit today, we recorded the following information about you: Weight Height 100.2 kg 1.575 m Carmen Medrano Ken 12/18/2017 1:05 PM Signed Patient presents with: Bilateral Knee Pain Carmen Sargent Mitchell Rogers 12/18/2017 1:05 PM Signed CONSULT ORTHOPAEDIC: KNEE PRIMARY CARE PHYSICIAN: Scott Mendez MD REFERRING PROVIDER: Hari Urbina MD [address] [place] [address] ASSESSMENT AND PLAN Impression: Left Knee Moderate Degenerative Osteoarthritis, Primary After discussion with Abbi Shook, continued non-operative management of injection(s) was chosen. The patient currently has had progressive symptoms. Progressive Symptoms Include: Pain worsened by weight bearing Pain effecting living situation Pain limiting ability to stay fit and healthy. The patient has been ordered: No orders placed today. CONSULTS: Patient does not require consults for optimization at this time. ACTIVE PROBLEM LIST L4-5 degenerative disk disease spinal stenosis Enthesopathy of Hip Region Hip Replacement Arthroplasty Hip Arthritis Spinal Stenosis, Lumbar Region, Without Neurogenic Claudication Thoracic Or Lumbosacral Neuritis Or Radiculitis, Unspecified Lumbosacral Spondylosis Without Myelopathy Hip Pain Dysphagia Abdominal Cramping Dupuytren's Contracture of Left Hand Blood Per Rectum Type 2 Diabetes Mellitus Without Retinopathy (Hcc) Punctate Keratitis, Bilateral Vitreous Floaters of Both Eyes SUBJECTIVE CHIEF COMPLAINT: Knee Pain HPI: Abbi Shook is a 67 year old female here for evaluation and management of bilateral knee pain. She has had progressive problems with the knee(s) constantly over the past 7 year(s) interfering with activities which include gardening, doing slack cooper, walking, rising from a sitting position, standing for prolonged periods of time, getting in and out of a car, dressing and climbing stairs. The problem began limiting activities 1-6 months ago. Currently the pain in the joint is rated at 5 out of 10 with moderate activity. The pain is constant and is located in the front. The pain is described as aching. Relieving factors include over the counter medication. There is no specific incident that brought about this pain. She also complains of stiffness, locking and popping. FUNCTIONAL STATUS: Climb a flight of stairs or walk up a hill (5.50 METs) Preoperative Ambulatory Status: Impaired Community Distances Number of Entry Steps: 6 Bedroom Location: First floor Bathroom Location: First floor Caregiver Assistance: Inconsistent/None Home Location: [place] to 150 miles PREVIOUS TREATMENTS: Medical Treatments: OTC NSAIDS for 3 Months or Greater (Ibuprofen), had injections but unsure which knee REVIEW OF SYSTEMS: PAIN ASSESSMENT: See HPI. MUSCULOSKELETAL: See HPI. Surgical Risk Factors: Autoimmune Disease and Diabetes PAST MEDICAL HISTORY Diagnosis Date - Chronic fatigue - Chronic obstructive pulmonary disease (COPD) (HCC) - Diabetes (HCC) Type 2 - High cholesterol - Hypertension - Seizures (HCC) As an /PCN reaction - Sleep apnea - Snoring PAST SURGICAL HISTORY Procedure Laterality Date - COLONOSCOP W/ OR W/O [facility] SPEC 2014 Colonoscopy - EXCIS TENDON SHEATH LESN,HAND/FINGR Left 2013 base of left 5th finger - HYSTERECTOMY HX - LAMINECTOMY,LUMBAR - REVISE MEDIAN N/CARPAL TUNNEL SURG Bilateral - TONSILLECTOMY HX - TOTAL HIP REPLACEMENT 05/29/11 left - TOTAL HIP REPLACEMENT 2009 right FAMILY HISTORY Problem Relation Age of Onset - No Ocular Disease Father - Macular Degen Mother - No Ocular Disease Sister - No Ocular Disease Brother - No Ocular Disease Maternal Grandmother - No Ocular Disease Maternal Grandfather - No Ocular Disease Paternal Grandmother - No Ocular Disease Paternal Grandfather - No Family History No Family History Social History Marital status: Spouse name: Years of education: Number of children: Social History Main Topics Smoking status: Current Every Day Smoker Packs/day: 0.50 Years: 30.00 Types: Cigarettes Smokeless tobacco: Never Used Comment: less than 1/4 pack per day Alcohol use: Yes Comment: occassional Drug use: No ALLERGIES: Nickel; Penicillins MEDICATIONS: SPIRIVA WITH HANDIHALER 18 mcg inhalation capsule Inhale 18 mcg as instructed once daily. metFORMIN ER (GLUCOPHAGE XR) 500 mg 24 hr tablet Take 1 tablet by mouth twice daily. furosemide (LASIX) 40 mg tablet Take 40 mg by mouth as needed. MONTELUKAST SODIUM (SINGULAIR ORAL) Take by mouth once daily. ALBUTEROL SULFATE (PROAIR HFA INHALATION) Inhale as instructed as needed. albuterol HFA (PROAIR HFA) 90 mcg/actuation inhaler Inhale 2 Puffs as instructed as needed. fluticasone-salmeterol (ADVAIR DISKUS) 100-50 mcg/dose dsdv Inhale 1 Puff as instructed twice daily. RINSE AND GARGLE MOUTH WITH WATER AFTER EACH USE. Ptbch-KZ0-CGY-XMU-RK2-Svm-Astx (KRILL OIL) 1000-130(40-80) mg cap Take by mouth. cholecalciferol (VITAMIN D3) 2,000 unit tablet Take 1 tablet by mouth once daily. lisinopril (ZESTRIL, PRINIVIL) 5 mg tablet Take 5 mg by mouth once daily. SYNTHROID 50 mcg tablet once daily. METOPROLOL SUCCINATE XL, LONG ACTING, 100 mg Tb24 once daily. TRAMADOL 50 mg ORAL tablet as needed. CYMBALTA 60 mg ORAL capsule rosuvastatin (CRESTOR) 10 mg ORAL tablet Take one(1) tablet at bedtime. lansoprazole(PREVACID 30 MG CAP) Take one(1) capsule daily. PHYSICAL EXAM: Ht 157.5 cm (5' 2) Wt 100.2 kg (220 lb 12.8 oz) BMI 40.38 kg/m? All other systems deferred. GENERAL: Appears healthy, well-nourished, no deformities. HABITUS: Morbidly obese GAIT: Normal, the patient did not have trouble getting onto the exam table. and slow paced KNEE EXAM: Left: Alignment: Neutral Range of motion is 0 degrees in extension and 110 degrees of flexion. Extension La degrees Pain with ROM: Yes Effusion: Slight Tender to the palpation of Patellar tendon Pain with patellar compression: Yes Stability: Anterior/Posterior stable and Varus/Valgus stable Hip Exam: flexion to 100+ degrees, full extension, internal/external rotation adequate and no pain with log roll Neurovascular Status: Sensation Intact, Moves foot and ankle up AND down and 2+ dorsalis pedis Right: Alignment: Neutral Range of motion is 0 degrees in extension and 110 degrees of flexion. Extension La degrees Pain with ROM: Yes Effusion: Slight Tender to the palpation of Patellar tendon Pain with patellar compression: Yes Stability: Anterior/Posterior stable and Varus/Valgus stable Hip Exam: flexion to 100+ degrees, full extension, internal/external rotation adequate and no pain with log roll Neurovascular Status: Sensation Intact, Moves foot and ankle up AND down and 2+ dorsalis pedis DATA: Diagnostic tests reviewed for today's visit: Left knee X-Ray: Patellofemoral joint noted to have moderate degenerative changes IMPRESSION: Stable bilateral total hip arthroplasties. The following conditions were addressed during the office visit today: Staged knee injections SIGNATURE: Hari Urbina MD PATIENT NAME: Abbi Shook DATE: December 18, 2017 TIME: 12:57 PM Hari Urbina MD 01/16/2018 6:23 PM Signed PROCEDURE- JOINT INJECTION Joint Sites: knee She has had previous injections in the past. On exam, the joint is cool to touch without sign of infection. Flexion is limited and is uncomfortable. Crepitation is present with ROM. The proposed risks versus benefits of local anesthetic and steroid injection were discussed in detail. The patient verbalizes understanding and elects to proceed with the injection. The procedure was verified with the patient, including the correct injection site, and confirmation with both the patient and it support consultant. Under sterile technique following verbal consent the patient underwent a left knee injection with 2cc of 6 mg/ml Celestone with 3 cc 1% Lidocaine and tolerated the procedure well without complications. The injection was performed through a superior-lateral portal to the knee without incident. The patient tolerated the injection well. Verbal instructions on post-injection care were given. Hari Urbina MD Referring Provider: HARI URBINA [[id number]] Allergies As of Date: 12/18/2017 Noted Allergy Reaction NICKEL 07/01/2010 16 - Unknown PENICILLINS 02/01/2010 Date Reviewed: 12/18/2017 Reviewed by: Carmen Medrano Ma - Fully Assessed Reason for Visit: Bilateral Knee Pain [1210] Visit Diagnoses:Primary osteoarthritis of right knee [M17.11] Primary osteoarthritis of left knee [M17.12] Morbid obesity with BMI of 40.0-44.9, adult (HCC) [E66.01, Z68.41] Order(s):[] betamethasone acetate-betamethasone sodium phosphate 12 mg, lidocaine (PF) 10 mg/mL (1 %) 20 mgDisp: Rfl: Prescriptions as of 12/18/2017 Sig: LINAGLIPTIN 5 MG TABLET Take by mouth. METFORMIN ER 500 MG TABLET,EX* Take 1 tablet by mouth twice * KRILL OIL 1,000 MG-OM3 130 M* Take by mouth. CHOLECALCIFEROL (VITAMIN D3) * Take 1 tablet by mouth once d* LISINOPRIL 5 MG TABLET Take 5 mg by mouth once daily. SYNTHROID 50 MCG TABLET once daily. METOPROLOL SUCCINATE ER 100 M* once daily. * CYMBALTA 60 MG CAPSULE,DELAYE* * ROSUVASTATIN 10 MG TABLET Take one(1) tablet at bedtime. * PREVACID 30 MG CAPSULE,DELAYE* Take one(1) capsule daily. SPIRIVA WITH HANDIHALER 18 MC* Inhale 18 mcg as instructed o* FUROSEMIDE 40 MG TABLET Take 40 mg by mouth as needed. SINGULAIR ORAL Take by mouth once daily. PROAIR HFA INHALATION Inhale as instructed as need* ALBUTEROL SULFATE HFA 90 MCG/* Inhale 2 Puffs as instructed * FLUTICASONE 100 MCG-SALMETERO* Inhale 1 Puff as instructed t* * TRAMADOL 50 MG TABLET as needed. Problem List As Of Date 12/18/2017 Noted Resolved L4-5 degenerative disk disease [M54.5] INVALID FOR* spinal stenosis [M54.5] INVALID FOR* ENTHESOPATHY OF HIP [M76.899] INVALID FOR* Hip Replacement Arthroplasty INVALID FOR* Hip Arthritis [M16.10] INVALID FOR* Spinal stenosis, lumbar region, without neuroge*INVALID FOR* Thoracic or lumbosacral neuritis or radiculitis*INVALID FOR* Lumbosacral spondylosis without myelopathy [M47*INVALID FOR* Hip pain [M25.559] INVALID FOR* Dysphagia [R13.10] INVALID FOR* Abdominal cramping [R10.9] INVALID FOR* Dupuytren's contracture of left hand [M72.0] INVALID FOR* Blood per rectum [K62.5] INVALID FOR* Type 2 diabetes mellitus without retinopathy (H*INVALID FOR* Punctate keratitis, bilateral [H16.143] INVALID FOR* Vitreous floaters of both eyes [H43.393] INVALID FOR* Visit Notes: >> Carmen De Leon Dec 18, 2017 12:57 PM Status: Signed Patient presents with: Bilateral Knee Pain Prescriptions ordered this encounter Disp Refills Start End CAM GUERO INJECTION BUILDER 01/16/2018 12/18/2017 Class: Suppress Questions Route: [facility] Encounter Status:Closed by HARI URBINA MD on 01/16/18 PROGRESS Observed: 12/18/2017 Status: COMPLETED Source: [place] 12:57 PM [facility] REPOSITORY HNO ID: [id number] Author: Carmen Medrano Ma Service: (none) Author Type: (none) Type: Progress Notes Filed: 01/16/2018 6:23 PM Note Text: CONSULT ORTHOPAEDIC: KNEE PRIMARY CARE PHYSICIAN: Scott Mendez MD REFERRING PROVIDER: Hari Urbina MD [address] [address] ASSESSMENT AND PLAN Impression: Left Knee Moderate Degenerative Osteoarthritis, Primary After discussion with Abbi Shook, continued non-operative management of injection(s) was chosen. The patient currently has had progressive symptoms. Progressive Symptoms Include: Pain worsened by weight bearing Pain effecting living situation Pain limiting ability to stay fit and healthy. The patient has been ordered: No orders placed today. CONSULTS: Patient does not require consults for optimization at this time. ACTIVE PROBLEM LIST L4-5 degenerative disk disease spinal stenosis Enthesopathy of Hip Region Hip Replacement Arthroplasty Hip Arthritis Spinal Stenosis, Lumbar Region, Without Neurogenic Claudication Thoracic Or Lumbosacral Neuritis Or Radiculitis, Unspecified Lumbosacral Spondylosis Without Myelopathy Hip Pain Dysphagia Abdominal Cramping Dupuytren's Contracture of Left Hand Blood Per Rectum Type 2 Diabetes Mellitus Without Retinopathy (Hcc) Punctate Keratitis, Bilateral Vitreous Floaters of Both Eyes SUBJECTIVE CHIEF COMPLAINT: Knee Pain HPI: Abbi Shook is a 67 year old female here for evaluation and management of bilateral knee pain. She has had progressive problems with the knee(s) constantly over the past 7 year(s) interfering with activities which include gardening, doing slack cooper, walking, rising from a sitting position, standing for prolonged periods of time, getting in and out of a car, dressing and climbing stairs. The problem began limiting activities 1-6 months ago. Currently the pain in the joint is rated at 5 out of 10 with moderate activity. The pain is constant and is located in the front. The pain is described as aching. Relieving factors include over the counter medication. There is no specific incident that brought about this pain. She also complains of stiffness, locking and popping. FUNCTIONAL STATUS: Climb a flight of stairs or walk up a hill (5.50 METs) Preoperative Ambulatory Status: Impaired Community Distances Number of Entry Steps: 6 Bedroom Location: First floor Bathroom Location: First floor Caregiver Assistance: Inconsistent/None Home Location: Up to 150 miles PREVIOUS TREATMENTS: Medical Treatments: OTC NSAIDS for 3 Months or Greater (Ibuprofen), had injections but unsure which knee REVIEW OF SYSTEMS: PAIN ASSESSMENT: See HPI. MUSCULOSKELETAL: See HPI. Surgical Risk Factors: Autoimmune Disease and Diabetes PAST MEDICAL HISTORY Diagnosis Date - Chronic fatigue - Chronic obstructive pulmonary disease (COPD) (HCC) - Diabetes (HCC) Type 2 - High cholesterol - Hypertension - Seizures (HCC) As an infant/PCN reaction - Sleep apnea - Snoring PAST SURGICAL HISTORY Procedure Laterality Date - COLONOSCOP W/ OR W/O [facility] SPEC 2014 Colonoscopy - EXCIS TENDON SHEATH LESN,HAND/FINGR Left 2013 base of left 5th finger - HYSTERECTOMY HX - LAMINECTOMY,LUMBAR - REVISE MEDIAN N/CARPAL TUNNEL SURG Bilateral - TONSILLECTOMY HX - TOTAL HIP REPLACEMENT 05/29/11 left - TOTAL HIP REPLACEMENT 2009 right FAMILY HISTORY Problem Relation Age of Onset - No Ocular Disease Father - Macular Degen Mother - No Ocular Disease Sister - No Ocular Disease Brother - No Ocular Disease Maternal Grandmother - No Ocular Disease Maternal Grandfather - No Ocular Disease Paternal Grandmother - No Ocular Disease Paternal Grandfather - No Family History No Family History Social History Marital status: Spouse name: Years of education: Number of children: Social History Main Topics Smoking status: Current Every Day Smoker Packs/day: 0.50 Years: 30.00 Types: Cigarettes Smokeless tobacco: Never Used Comment: less than 1/4 pack per day Alcohol use: Yes Comment: occassional Drug use: No ALLERGIES: Nickel; Penicillins MEDICATIONS: SPIRIVA WITH HANDIHALER 18 mcg inhalation capsule Inhale 18 mcg as instructed once daily. metFORMIN ER (GLUCOPHAGE XR) 500 mg 24 hr tablet Take 1 tablet by mouth twice daily. furosemide (LASIX) 40 mg tablet Take 40 mg by mouth as needed. MONTELUKAST SODIUM (SINGULAIR ORAL) Take by mouth once daily. ALBUTEROL SULFATE (PROAIR HFA INHALATION) Inhale as instructed as needed. albuterol HFA (PROAIR HFA) 90 mcg/actuation inhaler Inhale 2 Puffs as instructed as needed. fluticasone-salmeterol (ADVAIR DISKUS) 100-50 mcg/dose dsdv Inhale 1 Puff as instructed twice daily. RINSE AND GARGLE MOUTH WITH WATER AFTER EACH USE. Zarcf-FB6-UWP-SJW-GJ5-Gnt-Astx (KRILL OIL) 1000-130(40-80) mg cap Take by mouth. cholecalciferol (VITAMIN D3) 2,000 unit tablet Take 1 tablet by mouth once daily. lisinopril (ZESTRIL, PRINIVIL) 5 mg tablet Take 5 mg by mouth once daily. SYNTHROID 50 mcg tablet once daily. METOPROLOL SUCCINATE XL, LONG ACTING, 100 mg Tb24 once daily. TRAMADOL 50 mg ORAL tablet as needed. CYMBALTA 60 mg ORAL capsule rosuvastatin (CRESTOR) 10 mg ORAL tablet Take one(1) tablet at bedtime. lansoprazole(PREVACID 30 MG CAP) Take one(1) capsule daily. PHYSICAL EXAM: Ht 157.5 cm (5' 2) Wt 100.2 kg (220 lb 12.8 oz) BMI 40.38 kg/m? All other systems deferred. GENERAL: Appears healthy, well-nourished, no deformities. HABITUS: Morbidly obese GAIT: Normal, the patient did not have trouble getting onto the exam table. and slow paced KNEE EXAM: Left: Alignment: Neutral Range of motion is 0 degrees in extension and 110 degrees of flexion. Extension La degrees Pain with ROM: Yes Effusion: Slight Tender to the palpation of Patellar tendon Pain with patellar compression: Yes Stability: Anterior/Posterior stable and Varus/Valgus stable Hip Exam: flexion to 100+ degrees, full extension, internal/external rotation adequate and no pain with log roll Neurovascular Status: Sensation Intact, Moves foot and ankle up AND down and 2+ dorsalis pedis Right: Alignment: Neutral Range of motion is 0 degrees in extension and 110 degrees of flexion. Extension La degrees Pain with ROM: Yes Effusion: Slight Tender to the palpation of Patellar tendon Pain with patellar compression: Yes Stability: Anterior/Posterior stable and Varus/Valgus stable Hip Exam: flexion to 100+ degrees, full extension, internal/external rotation adequate and no pain with log roll Neurovascular Status: Sensation Intact, Moves foot and ankle up AND down and 2+ dorsalis pedis DATA: Diagnostic tests reviewed for today's visit: Left knee X-Ray: Patellofemoral joint noted to have moderate degenerative changes IMPRESSION: Stable bilateral total hip arthroplasties. The following conditions were addressed during the office visit today: Staged knee injections SIGNATURE: Hari Urbina MD PATIENT NAME: Abbi Shook DATE: December 18, 2017 TIME: 12:57 PM PROGRESS Observed: 12/18/2017 Status: COMPLETED Source: [place] 12:38 PM [facility] OTHER [place] REPOSITORY O ID: [id number] Author: Henrietta (Ct) DAYNA Escobar Service: (none) Author Type: Clinical Cow Rider Type: Progress Notes Filed: 12/18/2017 12:38 PM Note Text: NAME:Abbi Shook DATE: December 18, 2017 CCF#: [id number] Pelvis X-Ray and Lower Extremity X-Ray(s): Knee, AP / Lat / Merchant Bilateral and Wt. Bearing COMPLETED TECH ID SIGN: HENRIETTA ESCOBAR XR KNEE 3V AP/LAT/BRIAN Observed: 12/18/2017 Status: F Source: [facility] 12:33 PM [facility] OTHER CAMPUS REPOSITORY * * *Final Report* * * DATE OF EXAM: Dec 18 2017 12:33PM B[facility] 5635 - XR KNEE 3V AP/LAT/BRIAN JESSICA / PROCEDURE REASON: [id number], unspecified * * * * Physician Interpretation * * * * Bilateral knees HISTORY: 67 years old Clinical information: Pain, unspecified PAIN BOTH KNEES - PAIN BOTH KNEES - TECHNIQUE: Images: XR KNEE 3V AP/LAT/BRIAN JESSICA Comparison: None. RESULT: Findings: Right side: No fractures or dislocations are seen. Marked narrowing of the medial compartment of the knee with mild spurring along the medial aspect. Mild spurring along the lateral aspect of the lateral compartment. Severe narrowing of the patellofemoral compartment with moderate spurring posteriorly. Left side: No fractures or dislocations are seen. Moderate spurring posterior patella. Moderate narrowing of the medial compartment. Mild narrowing of the lateral compartment. IMPRESSION: Findings as discussed under Results portion of report.. Ship Runner: SHILPA Transcribe Date/Time: Dec 18 2017 2:45P Dictated by : MARSHALL ELI DO This examination was interpreted and the report reviewed and electronically signed by: MARSHALL ELI DO on Dec 18 2017 2:45PM EST [id number] XR PELVIS 1V AP Observed: 12/18/2017 Status: F Source: [place] 12:32 PM [facility] OTHER CAMPUS REPOSITORY * * *Final Report* * * DATE OF EXAM: Dec 18 2017 12:32PM B[facility] 5239 - XR PELVIS 1V AP / PROCEDURE REASON: [id number], unspecified * * * * Physician Interpretation * * * * Pelvis HISTORY: 67 years old Clinical information: Pain, unspecified TECHNIQUE: Images: XR PELVIS 1V AP Comparison: 03/25/2013. RESULT: Findings: The components of the bilateral total hip arthroplasties are in good alignment with the respective bones and each other. There is no evidence of loosening of the components. No fractures or dislocations are seen. IMPRESSION: Stable bilateral total hip arthroplasties. Ship Runner: SHILPA Transcribe Date/Time: Dec 18 2017 2:44P Dictated by : MARSHALL ELI DO This examination was interpreted and the report reviewed and electronically signed by: MARSHALL ELI DO on Dec 18 2017 2:45PM EST [id number] DOWNTIME REPORT Observed: 12/06/2017 Status: F Source: [place] 1:53 PM [facility] REPOSITORY [facility] Medical Records Department [address] [place] [id number] Downtime Report MR#: [id number] Acct: [id number] Name: ABBI SHOOK Rep #: [id number] : 1950 67 From: Maurilio Castellanos PCP: Scott Mendez MD Status: REG CLI This patient was seen during an EMR downtime November 19, 2017 - November 26, 2017. This patient may have a combination of paper and electronic documentation or all paper documentation. All documentation is viewable within the e-chart portion of [employer] for each patient visit. COMPREHENSIVE METABOLIC Collected: 11/20/2017 Status: F Source: [place] 12:10 PM [facility] REPOSITORY Order Comment: Order Date: 07/30/17 Order Info: [id number] - CMP Order Info: [id number] - LIPID Order Info: [id number] - TSH RESULT(S) PREVIOUSLY REPORTED ON MANUAL REQUISITION DURING DOWNTIME. TYPE CODE TESTS RESULT OUT OF RANGE REFERENCE UNITS LAB L501.0100 74-106 mg/dL High GLU 191 Result Comment: Fasting Glucose result greater than or equal to 126 mg/dL suggests DIABETES MELLITUS per A.D.A. criteria. Please note revised GLUCOSE reference range effective 2017. LAB L501.1000 7-18 mg/dL Normal BUN 16 LAB L501.1100 0.55-1.02 mg/dL Normal CREAT,SERUM 0.95 Result Comment: The validity of the calculated GFR AND GFRAA in patients over 70 years has not been determined. Clinical correlation is essential. LAB L501.1110 >60 mL/min Normal EST GFR 62 LAB L501.1115 >60 mL/min Normal EST GFR - AA 75 LAB L501.1300 10-20 RATIO Normal BUN/CRE 16.8 LAB L501.1500 6.4-8.2 g/dL Normal T PROT 6.8 LAB L501.1800 3.2-5.0 g/dL Normal ALB 3.3 LAB L501.1950 2.2-4.2 g/dL Normal GLOB 3.5 LAB L501.2000 0.9-2.4 RATIO Normal A/G 0.9 LAB L501.2200 8.5-10.1 mg/dL Normal CA 8.9 LAB L501.4100 15-37 U/L Normal AST 26 LAB L501.4305 45-117 U/L Normal ALK P 117 LAB L501.4405 13-56 U/L Normal ALT 39 LAB L501.4600 0.20-1.00 mg/dL Normal T BILI 0.30 LAB L501.5300 136-145 mmol/L Normal NA 140 LAB L501.5600 3.5-5.1 mmol/L Normal K 3.8 LAB L501.5900 98-107 mmol/L Normal CL 99 LAB L501.6100 21.0-32.0 mmol/L Normal CO2 31.0 LAB L501.6200 5-15 Normal GAP 10 Performed By: #### L500.4050, L500.4100, L501.9520, L506.1000 #### [facility] [address] [place], [place], [id number] LIPID PROFILE Collected: 11/20/2017 Status: F Source: [place] 12:10 PM [facility] REPOSITORY Order Comment: Order Date: 07/30/17 Order Info: [id number] - CMP Order Info: [id number] - LIPID Order Info: [id number] - TSH RESULT(S) PREVIOUSLY REPORTED ON MANUAL REQUISITION DURING DOWNTIME. TYPE CODE TESTS RESULT OUT OF RANGE REFERENCE UNITS LAB L501.4900 200 mg/dL Normal CHOL 137 Result Comment: <200 mg/dL Desirable 200-240 mg/dL Borderline >240 mg/dL High Risk LAB L501.5000 mg/dL High TRIG 396 Result Comment: The drugs N-Acetylcysteine and Metamizole may falsely depress this assay. Serum Triglycerides Reference Interval Normal <150 mg/dL Borderline high 150 - 199 mg/dL High 200 - 499 mg/dL Very High > or = 500 mg/dL LAB L501.6400 mg/dL Normal HDL 42 Result Comment: The drugs N-Acetylcysteine and Metamizole may falsely depress this assay. Reference Range HDL <40 mg/dL Low HDL Cholesterol HDL >or= 60 mg/dL High HDL Cholesterol LAB L501.6500 0-130 mg/dL Test Normal not performed LDL LAB L501.6600 5-40 mg/dL High 79 VLDL Performed By: #### L500.4050, L500.4100, L501.9520, L506.1000 #### [facility] [address] [place], [address] THYROID STIM HORMONE Collected: 11/20/2017 Status: F Source: [place] ([place]) 12:10 PM [facility] REPOSITORY Order Comment: Order Date: 07/30/17 Order Info: [id number] - CMP Order Info: [id number] - LIPID Order Info: [id number] - TSH RESULT(S) PREVIOUSLY REPORTED ON MANUAL REQUISITION DURING DOWNTIME. TYPE CODE TESTS RESULT OUT OF RANGE REFERENCE UNITS LAB L501.9520 0.358-3.74 uIU/mL Normal TSH 3.27 Performed By: #### L500.4050, L500.4100, L501.9520, L506.1000 #### [facility] [address] [place], [id number] VITAMIN D,25 HYDROXY Collected: 11/20/2017 Status: F Source: [place] 12:10 PM [facility] REPOSITORY Order Comment: Order Date: 07/30/17 Order Info: [id number] - VITD25 TYPE CODE TESTS RESULT OUT OF RANGE REFERENCE UNITS LAB L506.1000 29.95-100.01 ng/mL Normal Vitamin D 43.7 25-OH Result Comment: Vitamin D 25(OH) Status Range Deficiency <20 ng/mL (50nmol/L) Insuffciency 20 - 30 ng/mL (50 - 75 nmol/L) Sufficiency 30 - 100 ng/mL (75 - 250 nmol/L) Toxicity >100 ng/mL (>250 nmol/L) RESULT(S) PREVIOUSLY REPORTED ON MANUAL REQUISITION DURING DOWNTIME. Performed By: #### L500.4050, L500.4100, L501.9520, L506.1000 #### [facility] [address] [place], [address] HEMOGLOBIN A1C Collected: 11/20/2017 Status: F Source: [place] 12:10 PM [facility] REPOSITORY Order Comment: RESULT(S) PREVIOUSLY REPORTED ON MANUAL REQUISITION DURING DOWNTIME. TYPE CODE TESTS RESULT OUT OF RANGE REFERENCE UNITS LAB L501.9985 4.2-6.3 % High HGB A1C 9.9 Performed By: #### L501.9985 #### [facility] [address] [place], [id number] PULMONARY VISIT REPORT Observed: 09/14/2017 Status: F Source: [place] 6:14 AM [facility] REPOSITORY [facility] of [address] [place] [address] OFFICE VISIT Date of Service: 09/13/17 MR#: [id number] Acct: [id number] Name: ABBI SHOOK Rep #: [id number] : 1950 Provider: Rohit Hughes MD Age/Sex: 67/F Location: [facility] [place].PMW Status: Signed Assessment AND Plan 1. Stage 1 mild COPD by GOLD classification J44.9 Plan Patient does have mild obstruction on pulmonary function testing. However, of greater significance, patient has a significantly depressed DLCO indicating emphysematous predominance. Decrease in hyperinflation likely secondary to body habitus. Signs and symptoms of exacerbation were reviewed in detail. Patient appears to be tolerating Stiolto well. Stressed the importance of smoking cessation. Office sick policy was reviewed in detail. Patient voiced understanding. Continue Stiolto therapy. Encourage smoking cessation 2. Tobacco abuse Z72.0 Plan Connor discussion with patient for approximately 12 minutes on the importance of smoking cessation. Patient does have a severely depressed DLCO and may end up on supplemental oxygen if smoking continues. Patient is reporting increased depression. Will attempt to wean off of Cymbalta therapy at patient's request. Patient is aware that Cymbalta should not be abruptly discontinued. Patient would like to be placed on Wellbutrin to see if this would better control her depression and help with smoking cessation. Plan was developed for smoking cessation moving forward. Smoking cessation with Wellbutrin. 3. Morbid obesity due to excess calories E66.01 Plan Discussed with patient about the role of weight loss and the overall disease plan of care. Patient understands that this increases metabolic demand on the heart and lungs, in addition to putting her at risk for other complications such as diabetes. Patient does state that she hopes to increase her activity as the weather improves. Patient does have a very supportive daughter who has undergone weight loss surgery in the past and she feels that this will be a support. Encourage weight loss. Plan Detail Other Medications New: Follow Up 6 Months ([facility]) HPI 2 M FU: Chief Complaint: Postnasal drip Details: Patient is a 67-year-old female, currently under the care of Dr. Mendez, who presents for evaluation with postnasal drip and to review test results. Since last visit, patient denies any ER visits, hospitalizations or prednisone burst. Patient has been compliant with Stiolto therapy and does report subjective improvement in overall condition. Patient feels she is much improved compared to previous visit. Patient continues to have some postnasal drip with sinus congestion. Patient has attributed this to allergies. Patient states that her hoarseness is much improved from before and she feels that she does with this on a weekly basis. Patient denies any constitutional symptoms such as fever, chills, nausea or vomiting. Patient does believe that her breathing is improved compared to previous. Patient continues to have a cough productive of clear to white sputum intermittently. Patient denies nocturnal predominance. Patient denies any complications with Stiolto therapy including hoarseness, sore throat or dry mouth. Patient does continue to smoke 1/2-1 pack per day. Patient states that she did attempt cold turkey since last visit, but I was going to smoke or kill someone. Patient does report that she had significant anxiety over the anniversary of her 's , which was very difficult for her to handle without smoking. Patient also reports that she feels more depressed lately and she attributes this to the memory of her . Patient is on Cymbalta, but feels that this is not helpful. Testing reviewed with the patient Complete PFT (07/14/2017): Reversible mild large airways obstructive ventilatory defect with reduction diffusing capacity (FVC 81%, FEV1 73%, TLC 98%, DLCO 55%) Walking oximetries (07/09/2017): Ambulate 974 feet over the course of 6 minutes with no significant desaturation. Intake Vital Signs09/13/17 Height 5 ft 2 in 09/13/17 Weight: 102.058 kg Intake Visit Reasons: 2 M FU Is patient in pain?: Yes Allergies Sulfa (Sulfonamide Antibiotics) Allergy (Mild, Verified 09/13/17 10:38) Other - gi upset amlodipine besylate [From Norvasc] Allergy (Verified 09/13/17 10:38) Unknown losartan [Losartan] Allergy (Verified 09/13/17 10:38) Unknown Penicillins Allergy (Verified 09/13/17 10:38) Unknown oxymetazoline HCl [From Afrin] Adverse Reaction (Mild, Verified 09/13/17 10:38) Other - nosebleed pseudoephedrine sulfate [From Afrin] Adverse Reaction (Mild, Verified 09/13/17 10:38) Other - nosebleed Medications Duloxetine Hcl [Cymbalta] 60 mg PO DAILY 07/14/14 [History Confirmed 09/13/17] Levothyroxine [Synthroid] 50 mcg PO DAILY 07/14/14 [History Confirmed 09/13/17] Metoprolol(XL)Succ [Toprol Xl (Beta Miguel)] 100 mg PO DAILY 07/14/14 [History Confirmed 09/13/17] Rosuvastatin Calcium [Crestor] 10 mg PO QHS 07/14/14 [History Confirmed 09/13/17] [place] 3 1,000 mg Softgel 1 cap PO DAILY 03/03/16 [History Confirmed 09/13/17] Tiotropium [place] [Spiriva] 1 inhaler INHALATION DAILY 03/03/16 [History Confirmed 09/13/17] Cholecalciferol (Vitamin D3) [Vitamin D3] 2,000 unit PO DAILY 04/24/17 [History Confirmed 09/13/17] Metformin(XR) [Glucophage Xr] 500 mg PO BID 04/24/17 [History Confirmed 09/13/17] tiotropium 2.5 mcg-olodaterol 2.5 mcg/actuation mist for inhalation 2 puff INHALATION Q24H #4 g 06/22/17 [Rx Confirmed 09/13/17] lansoprazole 30 mg capsule,delayed release 30 mg PO BID 07/05/17 [History Confirmed 09/13/17] albuterol sulfate HFA 90 mcg/actuation aerosol inhaler 2 puff INHALATION Q6H PRN 09/13/17 [History Confirmed 09/13/17] bupropion HCl SR 150 mg tablet,12 hr sustained-release 150 mg PO BID #60 tab 09/13/17 [Rx Confirmed 09/13/17] duloxetine 30 mg capsule,delayed release 30 mg PO QDAY #14 cap 09/13/17 [Rx Confirmed 09/13/17] lisinopril 5 mg tablet 40 mg PO DAILY tab 09/13/17 [History Confirmed 09/13/17] PFSH Medical History Bronchitis (Acute) SOB (shortness of breath) (Acute) Diabetes (Chronic) HTN (hypertension) (Chronic) Hyperlipidemia (Chronic) GUZMAN (obstructive sleep apnea) (Chronic) Surgical History H/O bilateral hip replacements (Resolved) H/O hernia repair (Resolved) H/O: hysterectomy (Resolved) History of back surgery (Resolved) Family History Grandfather Diabetes Social History Smoking Status: Current every day smoker tobacco type: cigarettes alcohol intake: never details: social substance use type: does not use caffeine: Yes what type of physical activity do you participate in: none seatbelt use: always do you feel safe at home: Yes additional social history: -retired Review of Systems Const CONSTITUTIONAL: Negative anorexia, body ache, chills, daytime sleepiness, fever(s), night sweats, oral thrush, stops breathing during sleep, weight loss, sleeping in chair, fatigue, weight loss, weight gain, frequent colds, seasonal allergies, other, headache(s) or orthopnea EETM Ear Nose Throat Mouth: Positive hearing normal; negative hard of hearing, hoarseness, dry mouth in morning, change in vision, itchy eyes, eye pain, swallowing Difficulty, ear pain, nose bleed, headache(s), mouth pain, nasal congestion, nasal discharge, post nasal drip, sinus pain, sinus pressure, sore throat or other Cardio Cardiovascular: Negative chest pain, chest pain at rest, chest pain with activity, irregular heart rhythm, edema, shortness of breath when lying down, palpitations, murmur or other Resp Respiratory: Positive as per HPI and cough cough: Positive productive color: Positive clear and white; negative shortness of breath, pain with cough, wheezing, chest congestion, chest tightness, pain on inspiration, inhalers, increase use of rescue inhalers, snoring, apnea or other Gastro Gastrointestional: Negative bloody stools, change in appetite, difficulty swallowing, reflux, hematemesis, melena stool, loose stool, constipation or other Genitourinary: Negative blood in urine, nocturia, pain with urination or other Musc Musculoskeletal: Positive body pain; negative back pain, neck pain or other Skin/Breast Skin/Breast: Negative dry skin, itching, rash, unusual bruising, breast lump or other Neuro Neurological: Negative restless legs, confusion, weakness or other Psych Psychocological: Negative abnormal sleep pattern, anxiety, thoughts of hurting self/others, hopelessness or other Lymph Lymphatic: Negative easy bleeding, easy bruising, swollen lymph nodes or other Exam Const Constitutional: Positive conversant, cooperative, in no acute respiratory distress, healthy appearing, well developed, well nourished, good hygiene and obese; negative wearing supplemental oxygen Head Head: Positive normocephalic and atraumatic; negative cyanosis of lips/distal nose, microcephalic, macrocephalic, frontal sinus tenderness or maxillary sinus tenderness Eyes Eye: Positive clear conjunctiva; negative nystagmus or scleral abnormality Ears Ear: Positive hearing normal and external ears normal; negative hard of hearing Nose Nose: Positive external nose normal, septum normal and clear nasal discharge; negative epistaxis or nasal polyp Mouth Mouth: Positive oral mucosae normal, good dentition, crowded posterior oropharynx and no lesions; negative post nasal drip or oral thrush present Mallampati Score: III: Mallampati Score Neck Neck: Positive normal visual inspection, thick neck, full ROM, trachea midline and female neck greater than 37 cm (15 in); negative lymphadenopathy or JVD Chest Wall Chest: Positive normal inspection of the chest; negative increased A/P diameter, symmetric chest movement, crepitus or tenderness Resp lung sounds: Positive clear to auscultation, good air exchange, wheeze present on forced exhalation and prolonged expiratory time; negative wheezes, rhonchi, rales or dullness to percussion Cardio Cardiac: Positive regular rate, regular rhythm, S1 normal and S2 normal; negative murmur, rub or gallop GI GI: Positive obese, normal to inspection and normal bowel sounds; negative distended or ascites Genitourinary: Positive deferred Musc Musculoskeletal: Positive steady gait and ROM normal; negative using an assistive device for ambulation, kyphosis or scoliosis Skin Pulmonary Skin Exam: Positive intact; negative rash, lesion, ulcers, erythema or dermal atrophy Pulses Pulse: Yes radial pulses present Extremities Extremities: Yes capillary refill normal, No clubbing, No cyanosis, No edema, No stasis dermatitis Neuro Neurologic: Yes conversant, Yes no focal neuro deficits, Yes normal coordination, Yes normal concentration, Yes cooperative, Yes normal cognition, Yes understands questions Lymph Lymphatic: No lymphadenopathy Psych Appearance: Positive grossly normal Mental Status: Positive mental status grossly normal Mood: Positive congruent mood Affect: Positive normal affect Pulmonary Procedure Smoking Cessation Education: Yes greater than 10 minutes, expresses understanding, continue to encourage smoking cessation and education provided Coding Level of Care Code Off vis,est,level 4 Diagnoses Stage 1 mild COPD by GOLD classification J44.9 Tobacco abuse Z72.0 Morbid obesity due to excess calories E66.01 09/14/17 0614 <Electronically signed by Rohit Hughes MD> Date Rohit Hughes MD Cosigner Signature: Date (if applicable) CC: Scott Mendez MD SCREENING MAMM (CAD), Observed: 07/30/2017 Status: F Source: [facility] 1:28 PM [facility] REPOSITORY [facility] Imaging Services [address] [place] [id number] SCREENING MAMM (CAD), BIL MR#: [id number] Acct: [id number] Name: ABBI SHOOK Rep #: [id number] : 1950 F 67 From: Jeyson Merritt MD PCP: Scott Mendez MD Status: REG CLI Study: SCREENING MAMM (CAD), BIL Date of Exam: 07/30/17 Exam# [id number] Ordering Dr: Trang Dhillon SAXOPHONE ASSEMBLER-Anni MAMMOGRAPHY - BILATERAL DIAGNOSTIC REASON FOR EXAM: Female, 67 years old. Remote left excisional breast biopsy. PERTINENT HISTORY: Non-contributory. TECHNIQUE: Digital bilateral breast deshawn (3D mammographic acquisition) in the CC and MLO projections. 2-D mediolateral oblique (MLO) and craniocaudad (CC) views of both breasts were obtained. CAD: Full Field Digital Mammography with Computer Added Detection was performed. COMPARISON: Comparison is made with prior examination dated August 27, 2012 and June 06, 2010. FINDINGS: Breast Composition: There are scattered areas of fibroglandular density. There are no dominant masses or suspicious calcifications. Stable benign-appearing bilateral axillary lymph nodes. No other significant abnormalities are identified. There has been no significant change since the prior study. HPBI/SCREENING MAMM (CAD), BILAT IMPRESSION: Stable bilateral diagnostic mammogram. One year follow-up recommended. (A) ASSESSMENT CATEGORY: BIRADS Category 2: Benign. A letter regarding these results will be sent to the patient by the facility within 30 days. Approximately 10% of breast cancers are not detected by mammography. A normal mammogram should not delay biopsy of a clinically suspicious abnormality. Electronically Signed: Jeyson Merritt MD at 15:30 EST Tel [phone], Service support , CC: ERICK Dhillon; Scott Mendez MD Ship Runner: Signed PULMONARY FUNCTION Observed: 07/14/2017 Status: F Source: [facility] REPORT COMP 6:29 AM [facility] REPOSITORY [facility] Pulmonary Services/Neurology [address] [place] [address] [place] [address] MR#: [id number] Acct: [id number] Name: ABBI SHOOK Rep #: [id number] : 1950 67 From: Rohit Hughes MD Referring Dr: Rohit Hughes MD Status: REG CLI Ordering Dr: Date: Location: PSN Sex: F C COMPLETE PULMONARY FUNCTION TEST INTERPRETATION Brief HPI: Patient is a 67 year old female, currently under the care of myself, who presents to [facility] for complete pulmonary function tests secondary to diagnosis of dyspnea. Respiratory therapist reports good effort and reproducible results. Interpretation: Forced expiration spirometry shows a mild large airways obstructive ventilatory defect with an FEV1 of 73 % predicted. There is no significant bronchodilator response by ATS criteria. Spirograms are of good quality and plateau slowly, indicating slowly emptying areas of the lungs. The respiratory flow volume loop shows decreased expiratory flow rates at all lung volumes consistent with airway obstruction. Lung volumes by body plethysmography show a normal total lung capacity at 4.36, 98 % predicted. All other lung volumes are within normal limits. Diffusion capacity by carbon monoxide is decreased at 55 % predicted. The airway resistance is normal. Compared to previous pulmonary function tests from 08/07/2013, there has been a significant change in FVC, FEV1 and total lung capacity. However, patient's DLCO is significantly reduced compared to previous. Impression: Irreversible mild large airways obstructive ventilatory defect with reduction diffusing capacity consistent with the diagnosis of COPD. There has been some improvement since 2013, but decreased DLCO may be secondary to a pulmonary vascular disorder. 07/14/17628 <Electronically signed by Rohit Hughes MD> Date Rohit Hughes MD CC: Rohit Hughes MD; Scott Mendez MD Date Dictated: 07/14/17624 Date Transcribed: 07/14/17624 Ship Runner: BOBBY Signed ALLERGIES ALLERGIES DATE TYPE / NAME / CODE REACTION SEVERITY SOURCE CODE 05/31/2018 Drug amlodipine Unknown Unknown [place] Allergy/41 besylate/[id number](R [id number] 05/31/2018 Drug Penicillins/[id number] Unknown Unknown [place] Allergy/41 6(RXNORM) Community 8576977([facility]) Repository 05/31/2018 Drug Sulfa (Sulfonamide Other - gi [place] Allergy/41 Antibiotics)/[id number] upset Community 5850780([facility](RXNORM) [facility]) Repository 05/31/2018 Drug losartan/P343002011(R Unknown Unknown [place] Allergy/41 XNORM) Community 1376119([facility]) Repository 09/13/2017 Drug oxymetazoline Other - [place] Allergy/41 HCl/X252600531(RXNORM nosebleed Community 9584020[facility]) Repository 09/13/2017 Drug pseudoephedrine Other - [place] Allergy/41 sulfate/F449644289(RX nosebleed Community 7656068(SN NORM) Hospital OMED CT) Repository 07/01/2010 DRUG NICKEL UNKNOWN [place] INGREDI/41 Clinic Other 0907793([facility] OMED CT) Repository 02/01/2010 Drug PENICILLINS [place] Class/4195 Clinic Other 05023([facility] ED CT) Repository ENCOUNTERS ENCOUNTERS ADMIT/DISCHARGE ACCOUNT ADMITTING ENCOUNTER LOCATION SOURCE NUMBER CLASS 07/03/2018 [id number] Ambulatory [facility] ing:MTLAB Repository 05/31/2018/05/31/[id number] ing:ED Repository 05/31/2018 [id number] Ambulatory [facility] ing:CVS Repository 05/30/2018 [id number] Ambulatory [facility] ing:MTRAD Repository 02/25/2018 [id number] Ambulatory BMSBuilding:B Bill [facility] Repository 01/19/2018/01/20/[id number] ing:ED Repository 12/25/2017/12/28/19 [id number] Ambulatory [address] [place] Repository 12/18/2017/01/18/20 [id number] Ambulatory [address] [place] Repository 12/18/2017/12/19/19 [id number] Ambulatory [address] Other [place] Repository 11/20/2017 [id number] Ambulatory [facility] ing:MFPLAB Repository 09/13/2017/09/14/19 [id number] Ambulatory BMSBuilding:B Bill 18 [place].[facility] Repository 07/30/2017 [id number] Ambulatory [facility] Hospital ing:BI Repository 07/14/2017 [id number] [facility] 07/13/2017 [id number] Ambulatory [facility] ing:PSN Repository PAYERS PAYERS ENCOUNTER GUARANTOR PAYER SUBSCRIBER SOURCE 07/03/2018 ABBI Hutton Primary Insurance:PATRICK [id number] [facility] HOLGERDOB[facility] MEBKLMGQEffective [id number], Date:4887-42-96CZ [place]OX [place]ository [place] [address]Lmi: [id number] [place] [address]WP: [phone] ([phone] 07/03/2018 Secondary NOT GIVENUNK [place] Insurance:SELF PAY Community INSURANCEPolicy Number: Hospital Effective Repository Date:2018-07-03 05/31/2018 ABBI Hutton Primary Insurance:AETNA ABBI C [place] [id number] MCRPolicy Number: PARKERDOB: Community ALEYDA MEBKLMGQEffective [id number] Regional Medical Center, Date:8868-50-15JF BOX [place]ository [place] [address]Ltp: [id number] [place] ) [phone]: [phone] ([phone] 05/31/2018 Secondary NOT GIVENUNK Bill Insurance:SELF PAY Community INSURANCEPolicy Number: Hospital Effective Repository Date:2018-05-31 05/31/2018 ABBI C Primary Insurance:AETNA ABBI C Bill [id number] MCRPolicy Number: PARKERDOB: Community ALEYDA MEBKLMGQEffective [id number] Regional Medical Center, Date:8522-63-86HI [place]OX [place]ository [place] [address]Ppq: [id number] [place] ) [phone] [address]WP: [phone] ([phone] 05/31/2018 Secondary NOT GIVENUNK [place] Insurance:SELF PAY Community INSURANCEPolicy Number: Hospital Effective Repository Date:2018-05-31 05/30/2018 ABBI C Primary Insurance:AETNA ABBI C [place] [id number] MCRPolicy Number: PARKERDOB: Community ALEYDA BKLMGQEffective [id number] Regional Medical Center, Date:1021-60-70OP [place]OX [place]ository [place] [address]Pwj: [id number] [place] [address]WP: [phone] ([phone] 05/30/2018 Secondary NOT GIVENUNK [place] Insurance:SELF PAY Community INSURANCEPolicy Number: Hospital Effective Repository Date:2018-05-30 02/25/2018 ABBI C Primary Insurance:AETNA ABBI Hutton Bill [id number] MCRPolicy Number: PARKERDOB: Community ALEYDA PORTILLOBKLMGQEffective [id number] Regional Medical Center, Date:4409-13-97HI [place]OX [place]ository [place] [address]Kvb: [id number] [place] [address]GO: [phone] ([phone] 02/25/2018 Secondary ABBI C Bill Insurance:MEDICARE PART PARKERDOB: Community A BPolicy Number: [id number] Hospital [id number] Repository Date:2017-09-13 02/25/2018 Tertiary Insurance:SELF NOT GIVENUNK [place] PAY INSURANCEPolicy Community Number: Effective Hospital Date:2018-02-15 Repository 01/19/2018 ABBI C Primary Insurance:AETNA ABBI Hutton Bill [id number] MCRPolicy Number: PARKERDOB: Community ALEYDA PORTILLOBKLMGQEffective [id number] Regional Medical Center, Date:0795-37-63AR [place]OX [place]ository [place] [address]Exd: [id number] [place] [address]EX: [phone] 01/19/2018 Secondary NOT GIVENUNK Bill Insurance:SELF PAY Community INSURANCEPolicy Number: Hospital Effective Repository Date:2018-01-19 11/20/2017 ABBI C Primary Insurance:AETNA ABBI Hutton Bill [id number] MCRPolicy Number: PARKERDOB: Community ALEYDA PORTILLOBKLMGQEffective [id number] Regional Medical Center, Date:1328-99-93OX BOX Repository [place] [address]Wte: [id number] [place] [address]JJ: [phone] ([phone] 11/20/2017 Secondary ABBI C [place] Insurance:MEDICARE PART PARKERDOB: Community A BPolicy Number: [id number] Hospital [id number] Repository Date:2017-11-20 11/20/2017 Tertiary Insurance:SELF NOT GIVENUNK [place] PAY INSURANCEPolicy Community Number: Effective Hospital Date:2017-11-20 Repository 09/13/2017 ABBI C Primary Insurance:AETNA ABBI Hutton [place] [id number] MCRPolicy Number: PARKERDOB: Community ALEYDA PORTILLOBKLMGQEffective [id number] Regional Medical Center, Date:9599-55-26YE [place] [address]Vbl: [id number] [place] [address]WP: [phone] ([phone] 09/13/2017 Secondary ABBI C Bill Insurance:MEDICARE PART PARKERDOB: Community A BPolicy Number: [id number] Hospital [id number] Repository Date:2017-06-22 09/13/2017 Tertiary Insurance:SELF NOT GIVENUNK [place] PAY INSURANCEPolicy Community Number: Effective Hospital Date:2017-09-11 Repository 07/30/2017 ABBI C Primary Insurance:AETNA ABBI Hutton Bill [id number] MCRPolicy Number: PARKERDOB: Community ALEYDA PORTILLOBKLMGQEffective [id number] Regional Medical Center, Date:6185-55-04VL [place]OX [place] [address]Ywz: [id number] [place] [address]WP: [phone] ([phone] 07/30/2017 Secondary NOT GIVENUNK [place] Insurance:SELF PAY Community INSURANCEPolicy Number: Hospital Effective Repository Date:2017-07-05 07/14/2017 ABBI C Primary Insurance:AETNA ABBI Hutton Bill [id number] MCRPolicy Number: PARKERDOB: Community ALEYDA MEBKLMGQEffective [id number] Regional Medical Center, Date:5906-77-68GI BOX [place]ository [place] [address]Duh: [id number] [place] [address]WP: [phone] (HP) [phone] 07/14/2017 Secondary NOT GIVENUNK [place] Insurance:SELF PAY Community INSURANCEPolicy Number: Hospital Effective Repository Date:2017-07-14 07/13/2017 ABBI C Primary Insurance:AETNA ABBI C Bill [id number] MCRPolicy Number: PARKERDOB: [facility] MEBKLMGQEffective [id number] Regional Medical Center, Date:0393-56-91HC [place] [address]Kvq: [id number] [place] [address]WP: [phone] ([phone] 07/13/2017 Secondary NOT GIVENSARAH Khan Insurance:SELF PAY [facility] INSURANCEPolicy Number: Hospital Effective Repository Date:2017-06-22
== END ==
PROVIDERS: Family Provider Family Medicine; PCP Family Medicine; Referring Provider Family Medicine; Visit Provider Family Medicine
DX: R05 Cough (principal)
CPT/HCPCS: 71046

== ENCOUNTER → 2018-05-31 10:54 | Outpatient (CLI) | payer MEDICARE, SELFPAY ==
--- NOTE | 2018-05-31 11:08 | VDLE_ITS ---
Reason For Study: RLE PAIN (CALF) RIGHT LEFT GSV is normal. CFV is compressible, spontaneous, phasic, CFV is compressible, spontaneous, phasic, competent, and demonstrates normal competent and demonstrates normal augmentation. augmentation. FV is compressible, spontaneous, phasic, competent and demonstrates normal augmentation. POP V is compressible, spontaneous, phasic, competent and demonstrates normal augmentation. T/P Trunk is compressible. PTV is compressible. RT PerV is compressible. Procedure Exam performed in department. The exam was diagnostic. A preliminary report was called and/or faxed to Andrea Muir @ 11:25 am @ [phone]. Interpretation Summary Deep veins of the right lower extremity are patent and compressible segmentally. There is no evidence of right lower extremity deep vein thrombosis. Valvular competence appears intact within the proximal deep venous system on the right . The right greater saphenous vein appears patent and compressible segmentally. Ordering Physician: Scott Mendez Referring Physician: Scott eMndez Performed By: Marbella Hilliard, GERALD, RVT
[2018-05-31 13:42] LABS: D-Dimer Quantitative (DVT/PE) 0.74 FEU/ug/m (0.27-0.49)
--- OUTSIDE RECORDS SUMMARY | 2018-07-17 03:36 | XMS RPT_ITS ---
:1950 Author Organization OHIP Support Name Relationship Address Phone MARYCRUZ MIX Unavailable [address] + [place] [address] R Unavailable Unavailable Unavailable MARIA DEL ROSARIOMARYCRUZ WANG Unavailable [address] + [place] [address] R Unavailable Unavailable Unavailable MARIA DEL ROSARIOMARYCRUZ WANG Unavailable [address] + [place] [address] R Unavailable Unavailable Unavailable MARIA DEL ROSARIOMARYCRUZ WANG Unavailable [address] + [place] [address] R Unavailable Unavailable Unavailable MARIA DEL ROSARIOMARYCRUZ Unavailable [address] + [place] [address] R Unavailable Unavailable Unavailable MARIA DEL ROSARIOMARYCRUZ Unavailable [address] + [place] [address] R Unavailable Unavailable Unavailable MARIA DEL ROSARIOMARYCRUZ WANG Unavailable [address] + [place] [address] R Unavailable Unavailable Unavailable MARIA DEL ROSARIOMARYCRUZ WANG Unavailable [address] + [place] [address] R Unavailable Unavailable Unavailable MARIA DEL ROSARIOMARYCRUZ WANG Unavailable [address] + [place] [address] R Unavailable Unavailable Unavailable MARIA DEL ROSARIOMARYCRUZ Unavailable [address] + [place] [address] R Unavailable Unavailable Unavailable MARIA DEL ROSARIOMARYCRUZ WANG Unavailable [address] + [place] [address] R Unavailable Unavailable Unavailable Care Team Providers Name Role Phone HARI URBINA Referring Unavailable HARI URBINA Attending Unavailable HARI URBINA Referring Unavailable GUANACO PANCHAL (TIERRA) Attending Unavailable Scott Mendez Attending Unavailable Scott Mendez Referring Unavailable Scott Mendez Primary Care Unavailable Scott Mendez Attending Unavailable Scott Mendez Referring Unavailable Ranney, Christopher Primary Care Unavailable Saul, Rohit Attending Unavailable Saul, Rohit Referring Unavailable Ranney, [facility] Primary Care Unavailable AshevilleTrang schrader Attending Unavailable Ransaint cloud, [place] Primary Care Unavailable Ransaint cloud, [place] Primary Care Unavailable Remington Conte Attending Unavailable Ranney, Christopher Attending Unavailable Ranney, Christopher Referring Unavailable Ranney, [facility] Primary Care Unavailable Saul, Rohit Attending Unavailable Saul, Rohit Referring Unavailable Saul, Rohit Attending Unavailable Ranney, Christopher Referring Unavailable Ranney, Christopher Attending Unavailable Ranney, [facility] Primary Care Unavailable Ranney, [facility] Primary Care Unavailable Catie Bucio Attending Unavailable Bucio, Catie Referring Unavailable Saul, Rohit Attending Unavailable Ranney, Christopher Referring Unavailable PROBLEMS PROBLEMS DATE TYPE CONDITION / CODE ATTENDING STATUS SOURCE 07/03/2018 Unknown 250.00 - Diabetes Ranney, Active [place] mellitus without [facility] mention of Hospital complication, type Repository II or unspecified type, not stated as uncontrolled / 250.00(ICD-9) 07/03/2018 Unknown E11.9 - Type 2 Ranney, Active [employer] diabetes mellitus [facility] without Hospital complications / Repository E11.9(ICD-10) 05/31/2018 Unknown M79.661 - Pain in Ransavana, Active [place] right lower leg / [facility] M79.661(ICD-10) Hospital Repository 12/18/2017 Active Pain, unspecified / NA Active [place] R52(ICD-10) Clinic Other [place] Repository 07/25/2017 Unknown Z12.31 - Encounter Trang Dhillon Active [employer] for screening Community mammogram for Hospital malignant neoplasm Repository of breast / Z12.31(ICD-10) 07/13/2017 Unknown R06.02 - Shortness Rohit Hughes Active [place] of breath / Community R06.02(ICD-10) Hospital Repository 07/13/2017 Unknown R06.00 - Dyspnea, SaulRohit veras Active [place] unspecified / Community R06.00(ICD-10) Hospital Repository 07/13/2017 Unknown R06.01 - Orthopnea Rohit Hughes Active [employer] / R06.01(ICD-10) [facility] Hospital Repository PROCEDURES PROCEDURES No Procedure Records FoundRESULTS RESULTS BASIC METABOLIC Collected: 07/03/2018 Status: F Source: BILL PROFILE (BMP) 8:56 AM [facility] Order Comment: Order Date: 02/26/18 Order Info: 0667-1 - BMP Order Info: 78166-1 - LIPID TYPE CODE TESTS RESULT OUT [...] 9 Performed By: #### L500.2500, L500.4100 #### [facility] [address] [place], [address] LIPID PROFILE Collected: 07/03/2018 Status: F Source: BILL 8:56 AM [facility] REPOSITORY Order Comment: Order Date: 02/26/18 Order Info: 0667-1 - BMP Order Info: 33325-5 - LIPID TYPE CODE TESTS RESULT OUT [...] VLDL Performed By: #### L500.2500, L500.4100 #### [facility] [address] [place], [address] 12 LEAD ELECTROCARDIOGRAM Observed: 06/05/2018 Status: F Source: [place] 3:34 PM [facility] REPOSITORY [facility] Cardiovascular Services [address] [place] [address] 12 Lead EKG 05/31/18 1447 MR#: [id number] Acct: [id number] Name: ABBI SHOOK Rep #: [id number] : 1950 68 From: Edward Merrill MD [...] ECG Confirmed by EDWARD MERRILL MD ([id number]), editor school photograph DEVIKA CASTELLANOS (56) on 06/05/2018 3:34:23 PM Referred By: DC Confirmed By:EDWARD MERRILL MD 06/05/18 1534 Date Edward Merrill MD CC: Scott Mendez MD; Remington Conte MD Signed VENOUS DUPLEX LOWER Observed: 06/01/2018 Status: F Source: BILL EXTREMITY 1:46 PM [facility] REPOSITORY [facility] Cardiovascular Services [address] [address] Venous Duplex US, Unilateral 05/31/18 1112 MR#: [id number] Acct: [id number] Name: ABBI SHOOK Rep #: [id number] : 1950 68 From: Slim Jacobson MD [...] to Andrea Muir @ 11:25 am @ [phone]. Interpretation Summary Deep veins of the right [...] Dictated: 05/31/18 1112 Date Transcribed: 06/01/18 1345 Furnace Checker: Signed DISCHARGE INSTRUCTION Observed: 05/31/2018 Status: F Source: BILL 4:14 PM [facility] Medical Records Department [address] [facility] [place] [address] Discharge Instruction 05/31/18 1602 MR#: [id number] Acct: [id number] Name: ABBI SHOOK Rep #: [id number] : 1950 68 From: Remington Conte MD [...] your Primary Care Provider. Call [facility] ([phone]) or report to the closest Emergency Room. Call 911 if necessary. 05/31/18 1614 <Electronically signed by Remington Conte MD> Date Remington Conte MD [facility] Signature (If Indicated): Date CC: Scott Mendez MD EMERGENCY DEPARTMENT Observed: 05/31/2018 Status: F Source: BILL SUMMARY 4:14 PM [facility] RE[facility]ITORY [facility] Medical Records Department [address] [facility] [place] [address] Emergency Department Summary 12/14/18 1559 MR#: [id number] Acct: [id number] Name: ABBI SHOOK Rep #: [id number] : 1950 68 From: Remington Conte MD [...] leg swelling This note was generated with [employer] dictation software. It may contain incorrect words, [...] problems, contact your Primary Care Provider. Call [facility] ([phone]) or report to the closest Emergency Room. Call 911 if necessary. 05/31/18 8459 <Electronically signed by Remington Conte MD> Date Remington Henriquezignshakila Signature (If Indicated): Date CC: Scott Mendez MD CBC W/DIFF, AUTOMATED Collected: 05/31/2018 Status: F Source: BILL 2:55 PM [facility] REPOSITORY TYPE CODE TESTS RESULT OUT OF [...] Lymph 1.45 Performed By: #### L100.0100 #### [facility] [address] [facility] [place], [address] BASIC METABOLIC Collected: 05/31/2018 Status: F Source: [place] PROFILE (BMP) 2:55 PM [facility] REPOSITORY TYPE CODE TESTS RESULT OUT OF [...] 9 Performed By: #### L500.2500, L501.4010 #### [facility] [address] [place], [place], [address] TROPONIN-I Collected: 05/31/2018 Status: F Source: [place] 2:55 PM [facility] REPOSITORY TYPE CODE TESTS RESULT OUT OF RANGE REFERENCE UNITS LAB L501.4010 <0.045 ng/mL Normal < 0.015 TROPONIN-I Result Comment: TROPONIN-I EXPECTED VALUES <0.045 Negative 0.045 - 0.590 Consistent with Cardiac Damage > OR = 0.600 Critical Value Not every elevated troponin is indicative of RI. These values should be used with clinical judgement in examining the patient's clinical picture for diagnosis. To establish a diagnosis of RI versus myocardial injury, there must be a demonstrated rise and/or fall in the troponin values, in addition to ischemic symptoms, EKG changes, new regional wall motion abnormality, and/or angiographical evidence. PLEASE NOTE: REFERENCE RANGES EDITED 17 Performed By: #### L500.2500, L501.4010 #### [facility] [address] [facility] [place], [address] CTA CHEST W/WO Observed: 05/31/2018 Status: F Source: [place] CONTRAST 2:38 PM [facility] REPOSITORY [facility] Imaging Services [address] [facility] [place] [address] CTA Chest W/WO Contrast MR#: [id number] Acct: [id number] Name: ABBI SHOOK Rep #: [id number] : 1950 F 68 From: Jeyson Merritt MD PCP: Scott Mendez MD Status: REG ER Study: CTA Chest W/WO Contrast Date of Exam: 05/31/18 Exam# [id number] Ordering Dr: Remington Conte MD STUDY: CTA [...] Jeyson Merritt MD at 15:50 EST Tel [phone], Service support , CC: Scott Mendez MD; Remington Conte MD Furnace Checker: Signed D-DIMER QUANTITATIVE Collected: 05/31/2018 Status: F Source: [place] (DVT/PE) 11:58 AM [facility] REPOSITORY TYPE CODE TESTS RESULT OUT OF [...] same . Performed By: #### L300.8000 #### [facility] [address] [facility] [place], [address] CHEST PA AND LATERAL Observed: 05/30/2018 Status: F Source: [place] 5:21 PM [facility] REPOSITORY [facility] Imaging Services [address] [place] [address] Chest PA and Lateral MR#: [id number] Acct: [id number] Name: ABBI SHOOK Rep #: [id number] : 1950 F 68 From: Terrence Castro MD PCP: Scott Mendez MD Status: REG CLI Study: Chest PA and Lateral Date of Exam: 05/30/18 Exam# [id number] Ordering Dr: Tom Mendez MD STUDY: X-RAY [...] greater on the right Electronically Signed: Terrence Castro MD at 18:31 EST , Service support , CC: Scott Mendez MD Furnace Checker: Signed 12 LEAD ELECTROCARDIOGRAM Observed: 01/21/2018 Status: F Source: [place] 1:35 PM [facility] REPOSITORY [facility] Cardiovascular Services [address] [place] [address] 12 Lead EKG 01/19/18 1738 MR#: [id number] Acct: [id number] Name: ABBI SHOOK Rep #: [id number] : 1950 67 From: Syed Bond MD [...] Normal ECG Confirmed by VARUN REDD, SYED ([id number]), editor school photograph DEVIKA CASTELLANOS (56) on 01/21/2018 1:34:35 PM Referred By: Catie Bucio Confirmed By:SYED BOND MD 01/21/18 1334 Date Syed Bond MD CC: Scott Mendez MD; Catie Bucio MD Signed EMERGENCY DEPARTMENT Observed: 01/19/2018 Status: F Source: [place] SUMMARY 10:27 PM [facility] REPOSITORY [facility] Medical Records Department [address] [place] [address] Emergency Department Summary 01/19/18 1909 MR#: [id number] Acct: [id number] Name: ABBI SHOOK Rep #: [id number] : 1950 67 From: Catie Bucio MD [...] Vertigo, improved This note was generated with [employer] dictation software. It may contain incorrect words, [...] problems, contact your Primary Care Provider. Call [facility] ([phone]) or report to the closest Emergency Room. Call 911 if necessary. 01/19/182226 <Electronically signed by Catie Bucio MD> Date Catie Bucio MD Cosigner Signature (If Indicated): Date CC: Scott Mendez MD DISCHARGE INSTRUCTION Observed: 01/19/2018 Status: F Source: BILL 9:24 PM [facility] REPOSITORY [facility] Medical Records Department [address] [place] [address] Discharge Instruction 01/19/182121 MR#: [id number] Acct: [id number] Name: ABBI SHOOK Rep #: [id number] : 1950 67 From: Catie Bucio MD PCP: Scott Mendez MD Status: [facility] ER ED Disposition - Plan for [...] your Primary Care Provider. Call [facility] ([phone]) or report to the closest Emergency Room. Call 911 if necessary. 01/19/182123 <Electronically signed by Catie Bucio MD> Date Catie Bucio MD Cosigner Signature (If Indicated): Date CC: Scott Mendez MD DISCHARGE INSTRUCTION Observed: 01/19/2018 Status: F Source: [place] 8:36 PM [facility] REPOSITORY [facility] Medical Records Department [address] [place] [address] Discharge Instruction 01/19/182034 MR#: [id number] Acct: [id number] Name: ABBI SHOOK Rep #: [id number] : 1950 67 From: Catie Bucio MD PCP: Scott Mendez MD Status: [facility] ER ED Disposition - Plan for [...] your Primary Care Provider. Call [facility] ([phone]) or report to the closest Emergency Room. Call 911 if necessary. 01/19/182035 <Electronically signed by Catie Bucio MD> Date Catie Bucio MD Cosigner Signature (If Indicated): Date CC: Scott Mendez MD CBC W/DIFF, AUTOMATED Collected: 01/19/2018 Status: F Source: BILL 5:00 PM [facility] REPOSITORY TYPE CODE TESTS RESULT OUT OF [...] Lymph 2.32 Performed By: #### L100.0100 #### [facility] [address] [facility] [place], [place], [address] BASIC METABOLIC Collected: 01/19/2018 Status: F Source: [place] PROFILE (BMP) 5:00 PM [facility] REPOSITORY TYPE CODE TESTS RESULT OUT OF [...] GAP 6 Performed By: #### L500.2500 #### [facility] [address] [facility] [place], [place], [address] URINALYSIS, COMPLETE Collected: 01/19/2018 Status: F Source: [place] 5:00 PM [facility] REPOSITORY Order Comment: How was Urine Obtained? [...] URINE SEEN Performed By: #### L400.0001 #### [facility] [place], [address] PROGRESS Observed: 01/16/2018 Status: COMPLETED Source: [place] 6:18 PM [facility] REPOSITORY O ID: [id number] Author: Hari Urbina Service: (none) Author Type: [...] and confirmation with both the patient and biomedical equipment support specialist. Under sterile technique following verbal consent the [...] MD PROGRESS Observed: 12/25/2017 Status: COMPLETED Source: [place] 10:43 AM [facility] REPOSITORY HNO ID: [id number] Author: Guanaco Panchal (Pa) Service: (none) Author Type: Physician Anvil Seating Press Operator Type: Progress Notes Filed: 12/25/2017 10:46 AM [...] and confirmation with both the patient and biomedical equipment support specialist. Under sterile technique following verbal consent the [...] PA-C CNOV Observed: 12/25/2017 Status: COMPLETED Source: [place] 10:00 AM [facility] REPOSITORY Office Visit (ORMDNA) ABBI SHOOK ([id number]) 1950 F Date Time Provider Department 12/25/17 [...] and confirmation with both the patient and biomedical equipment support specialist. Under sterile technique following verbal consent the [...] 12/25/17 CNDEB Observed: 12/18/2017 Status: COMPLETED Source: [place] 1:00 PM [facility] REPOSITORY Office Visit (ORMDNA) ABBI SHOOK ([id number]) 1950 F Date Time Provider Department 12/18/17 1:00 PM HARI URBINA During your visit today, we recorded the following information about you: Weight Height 100.2 kg 1.575 m Carmen Medrano Ken 12/18/2017 1:05 PM Signed Patient presents with: Bilateral Knee Pain Carmen Sargent Mitchell Rogers 12/18/2017 1:05 PM Signed CONSULT ORTHOPAEDIC: KNEE PRIMARY CARE PHYSICIAN: Scott Mendez MD REFERRING PROVIDER: Hari Urbina MD [address] [place] [address] ASSESSMENT AND PLAN Impression: Left Knee Moderate [...] interfering with activities which include gardening, doing machine hose cutter, walking, rising from a sitting position, standing [...] Laterality Date - COLONOSCOP W/ OR W/O [facility] SPEC 2014 Colonoscopy - EXCIS TENDON SHEATH [...] GARGLE MOUTH WITH WATER AFTER EACH USE. Buhpr-KW0-YWT-QCX-PW3-Siy-Astx (KRILL OIL) 1000-130(40-80) mg cap Take by [...] and confirmation with both the patient and biomedical equipment support specialist. Under sterile technique following verbal consent the [...] Hari Urbina MD Referring Provider: HARI URBINA [[id number]] Allergies As of Date: 12/18/2017 Noted Allergy [...] BUILDER 01/16/2018 12/18/2017 Class: Suppress Questions Route: [facility] Encounter Status:Closed by HARI URBINA MD on 01/16/18 PROGRESS Observed: 12/18/2017 Status: COMPLETED Source: [place] 12:57 PM [facility] REPOSITORY HNO ID: [id number] Author: Carmen Medrano Ma Service: (none) Author Type: (none) Type: Progress Notes Filed: 01/16/2018 6:23 PM Note Text: CONSULT ORTHOPAEDIC: KNEE PRIMARY CARE PHYSICIAN: Scott Mendez MD REFERRING PROVIDER: Hari Urbina MD [address] [address] ASSESSMENT AND PLAN Impression: Left Knee Moderate [...] interfering with activities which include gardening, doing machine hose cutter, walking, rising from a sitting position, standing [...] Laterality Date - COLONOSCOP W/ OR W/O [facility] SPEC 2014 Colonoscopy - EXCIS TENDON SHEATH [...] GARGLE MOUTH WITH WATER AFTER EACH USE. Cqjru-YA2-JHM-XVJ-KG8-Ngz-Astx (KRILL OIL) 1000-130(40-80) mg cap Take by [...] PM PROGRESS Observed: 12/18/2017 Status: COMPLETED Source: [place] 12:38 PM [facility] [place] REPOSITORY O ID: [id number] Author: Henrietta (Ct) DAYNA Escobar Service: (none) Author Type: Clinical Surgical Instrument Mechanic Type: Progress Notes Filed: 12/18/2017 12:38 PM Note Text: NAME:Abbi Shook DATE: December 18, 2017 CCF#: [id number] Pelvis X-Ray and Lower Extremity X-Ray(s): Knee, AP / Lat / Merchant Bilateral and Wt. Bearing COMPLETED TECH ID SIGN: HENRIETTA ESCOBAR XR KNEE 3V AP/LAT/BRIAN Observed: 12/18/2017 Status: F Source: [facility] 12:33 PM [facility] REPOSITORY * * *Final Report* * * DATE OF EXAM: Dec 18 2017 12:33PM [facility] 5635 - XR KNEE 3V AP/LAT/BRIAN JESSICA / PROCEDURE REASON: F17-Badz, unspecified * * * * Physician Interpretation [...] as discussed under Results portion of report.. Furnace Checker: SHILPA Transcribe Date/Time: Dec 18 2017 2:45P Dictated by : MARSHALL ELI DO This examination was interpreted and the report reviewed and electronically signed by: MARSHALL ELI DO on Dec 18 2017 2:45PM EST [id number] XR PELVIS 1V AP Observed: 12/18/2017 Status: F Source: [place] 12:32 PM [facility] REPOSITORY * * *Final Report* * * DATE OF EXAM: Dec 18 2017 12:32PM [facility] 5239 - XR PELVIS 1V AP / PROCEDURE REASON: E37-Awps, unspecified * * * * Physician Interpretation [...] seen. IMPRESSION: Stable bilateral total hip arthroplasties. Furnace Checker: SHILPA Transcribe Date/Time: Dec 18 2017 2:44P Dictated by : MARSHALL ELI DO This examination was interpreted and the report reviewed and electronically signed by: MARSHALL ELI DO on Dec 18 2017 2:45PM EST [id number] DOWNTIME REPORT Observed: 12/06/2017 Status: F Source: [place] 1:53 PM [facility] REPOSITORY [facility] Medical Records Department [address] [place] [address] Downtime Report MR#: [id number] Acct: [id number] Name: ABBI SHOOK Rep #: [id number] : 1950 67 From: Maurilio Castellanos PCP: Scott Mendez MD Status: REG CLI This patient was seen during an EMR downtime November 19, 2017 - November 26, 2017. This patient may have a combination of paper and electronic documentation or all paper documentation. All documentation is viewable within the e-chart portion of [employer] for each patient visit. COMPREHENSIVE METABOLIC Collected: 11/20/2017 Status: F Source: [place] 12:10 PM [facility] REPOSITORY Order Comment: Order Date: 07/30/17 Order Info: 0786-1 - CMP Order Info: [id number] - LIPID Order Info: 3016-3 - TSH [...] By: #### L500.4050, L500.4100, L501.9520, L506.1000 #### [facility] [address] [place], [place], [address] LIPID PROFILE Collected: 11/20/2017 Status: F Source: [place] 12:10 PM [facility] REPOSITORY Order Comment: Order Date: 07/30/17 Order Info: 0786-1 - CMP Order Info: 72878-6 - LIPID Order Info: 3016-3 - TSH [...] By: #### L500.4050, L500.4100, L501.9520, L506.1000 #### [facility] [address] [place], [address] THYROID STIM HORMONE Collected: 11/20/2017 Status: F Source: BILL (TSH) 12:10 PM [facility] REPOSITORY Order Comment: Order Date: 07/30/17 Order Info: 0786-1 - CMP Order Info: [id number] - LIPID Order Info: 3016-3 - TSH RESULT(S) PREVIOUSLY REPORTED ON MANUAL REQUISITION DURING DOWNTIME. TYPE CODE TESTS RESULT OUT OF RANGE REFERENCE UNITS LAB L501.9520 0.358-3.74 uIU/mL Normal TSH 3.27 Performed By: #### L500.4050, L500.4100, L501.9520, L506.1000 #### [facility] [address] [place], [address] VITAMIN D,25 HYDROXY Collected: 11/20/2017 Status: F Source: [place] 12:10 PM [facility] REPOSITORY Order Comment: Order Date: 07/30/17 Order Info: 83106-8 - VITD25 TYPE CODE TESTS RESULT OUT [...] By: #### L500.4050, L500.4100, L501.9520, L506.1000 #### [facility] [address] [place], [address] HEMOGLOBIN A1C Collected: 11/20/2017 Status: F Source: [place] 12:10 PM [facility] REPOSITORY Order Comment: RESULT(S) PREVIOUSLY REPORTED ON MANUAL REQUISITION DURING DOWNTIME. TYPE CODE TESTS RESULT OUT OF RANGE REFERENCE UNITS LAB L501.9985 4.2-6.3 % High HGB A1C 9.9 Performed By: #### L501.9985 #### [facility] [address] [facility] [place], [address] PULMONARY VISIT REPORT Observed: 09/14/2017 Status: F Source: [place] 6:14 AM [facility] REPOSITORY [facility] of [address] [place] [address] OFFICE VISIT Date of Service: 09/13/17 MR#: [id number] Acct: [id number] Name: ABBI SHOOK Rep #: [id number] : 1950 Provider: Rohit Hughes MD Age/Sex: 67/F Location[facility] Status: Signed Assessment AND Plan 1. Stage [...] Other Medications New: Follow Up 6 Months ([facility]) HPI 2 M FU: Chief Complaint: Postnasal [...] mg PO QHS 07/14/14 [History Confirmed 09/13/17] [place] 3 1,000 mg Softgel 1 cap PO DAILY 03/03/16 [History Confirmed 09/13/17] Tiotropium [place] [Spiriva] 1 inhaler INHALATION DAILY 03/03/16 [History [...] MAMM (CAD), Observed: 07/30/2017 Status: F Source: [facility] 1:28 PM [facility] REPOSITORY [facility] Imaging Services [address] [place] [address] SCREENING MAMM (CAD), BIL MR#: [id number] Acct: [id number] Name: ABBI HSOOK Rep #: [id number] : 1950 F 67 From: Jeyson Merritt MD PCP: Scott Mendez MD Status: REG CLI Study: SCREENING MAMM (CAD), BIL Date of Exam: 07/30/17 Exam# [id number] Ordering Dr: Trang Dhillon SYSTEM CONSULTANT-Anni MAMMOGRAPHY - BILATERAL DIAGNOSTIC REASON FOR EXAM: [...] Jeyson Merritt MD at 15:30 EST Tel [phone], Service support , CC: ERICK Dhillon; Scott Mendez MD Furnace Checker: Signed PULMONARY FUNCTION Observed: 07/14/2017 Status: F Source: [place] REPORT COMP 6:29 AM [facility] REPOSITORY [facility] Pulmonary Services/Neurology [address] [place] [address] [place] [address] MR#: [id number] Acct: [id number] Name: ABBI SHOOK Rep #: [id number] : 1950 67 From: Rohit Hughes MD Referring Dr: Rohit Hughes MD Status: REG CLI Ordering Dr: Date: Location: PSN Sex: F C COMPLETE PULMONARY FUNCTION TEST INTERPRETATION Brief HPI: Patient is a 67 year old female, currently under the care of myself, who presents to [facility] for complete pulmonary function tests secondary [...] MD Date Dictated: 07/14/17624 Date Transcribed: 07/14/17624 Furnace Checker: BOBBY Signed ALLERGIES ALLERGIES DATE TYPE / NAME / CODE REACTION SEVERITY SOURCE CODE 05/31/2018 Drug amlodipine Unknown Unknown [employer] Allergy/41 besylate/[id number]([id number] 05/31/2018 Drug Penicillins/[id number] Unknown Unknown [employer] Allergy/41 6(RXNORM) Community 3982783([facility] [place]) [place]ository 05/31/2018 Drug Sulfa (Sulfonamide Other - gi [place] Allergy/41 Antibiotics)/[id number] upset Community [id number]([facility](RXNORM) [facility]) Repository 05/31/2018 Drug losartan/[id number](R Unknown Unknown [employer] Allergy/41 XNORM) Community 1311565([facility] [place]) Repository 09/13/2017 Drug oxymetazoline Other - [place] Allergy/41 HCl/[id number](RXNORM nosebleed Community [id number]) Repository 09/13/2017 Drug pseudoephedrine Other - [place] [employer] Allergy/41 sulfate/[id number](RX nosebleed Community 1846120(SN NORM) Hospital OMED CT) Repository 07/01/2010 DRUG NICKEL UNKNOWN [place] INGREDI/41 Clinic Other [id number]([facility] OMED CT) Repository 02/01/2010 Drug PENICILLINS [place] Class/4195 Clinic Other 70111([facility] ED CT) Repository ENCOUNTERS ENCOUNTERS ADMIT/DISCHARGE ACCOUNT ADMITTING ENCOUNTER LOCATION SOURCE NUMBER CLASS 07/03/2018 [id number] Ambulatory [facility] ing:MTLAB Repository 05/31/2018/05/31/20 [id number] Emergency [address] ing:ED Repository 05/31/2018 [id number] Ambulatory [facility] ing:CVS Repository 05/30/2018 [id number] Ambulatory [facility] ing:MTRAD Repository 02/25/2018 [id number] Ambulatory BMSBuilding:B Bill [place].On license of [facility] Repository 01/19/2018/01/20/20 [id number] Emergency [address] ing:ED Repository 12/25/2017/12/28/19 [id number] Ambulatory [address] Main [place] Repository 12/18/2017/01/18/20 [id number] Ambulatory [address] [place] Repository 12/18/2017/12/19/19 [id number] Ambulatory [address] Other [place] Repository 11/20/2017 [id number] Ambulatory [facility] ing:MFPLAB Repository 09/13/2017/09/14/19 [id number] Ambulatory BMSBuilding:B Bill 18 MS.On license of [facility] Repository 07/30/2017 [id number] Ambulatory [facility] Hospital ing:BI Repository 07/14/2017 [id number] [facility] 07/13/2017 [id number] Ambulatory [facility] ing:PSN Repository PAYERS PAYERS ENCOUNTER GUARANTOR PAYER SUBSCRIBER SOURCE 07/03/2018 ABBI Hutton Primary Insurance:PATRICK [id number] [facility]: HOLGERDOB: [facility] [id number] [id number], Date:2490-42-47[address] [place]ository [place] [address]Hbr: [id number] [place] [address]WP: [phone] (HP) [phone] 07/03/2018 Secondary NOT GIVENUNK [employer] Insurance:SELF PAY Community INSURANCEPolicy Number: Hospital Effective Repository Date:2018-07-03 05/31/2018 ABBI Hutton Primary Insurance:AETNA ABBI C [employer] [id number] MCRPolicy Number: PARKERDOB: Community ALEYDA MEBKLMGQEffective [id number], Date:6488-23-35SU [address]OX [place]ository [place] [address]Wpu: [id number] [place] ) [phone]: [phone] (HP) [phone] 05/31/2018 Secondary NOT GIVENUNK Bill Insurance:SELF PAY Community INSURANCEPolicy Number: Hospital Effective Repository Date:2018-05-31 05/31/2018 ABBI C Primary Insurance:AETNA ABBI C Bill [id number] MCRPolicy Number: PARKERDOB: Community ALEYDA MEBKLMGQEffective [id number], Date:5688-51-03UI [address] [place]ository [place] [address]Sgo: [id number] [place] ) [phone]: [phone] (HP) [phone] 05/31/2018 Secondary NOT GIVENUNK [employer] Insurance:SELF PAY Community INSURANCEPolicy Number: Hospital Effective Repository Date:2018-05-31 05/30/2018 ABBI C Primary Insurance:AETNA ABBI C [employer] [id number] MCRPolicy Number: PARKERDOB: Community ALEYDA BKLMGQEffective [id number], Date:0960-98-71IM BOX Repository [place] [address]Yoa: [id number] [address]WP: [phone] (HP) [phone] 05/30/2018 Secondary NOT GIVENUNK [employer] Insurance:SELF PAY Community INSURANCEPolicy Number: Hospital Effective Repository Date:2018-05-30 02/25/2018 ABBI C Primary Insurance:AETNA ABBI [place] Bill [id number] MCRPolicy Number: PARKERDOB: Community ALEYDA PORTILLOBKLMGQEffective [id number], Date:3861-81-33KZ BOX Repository [place] [address]Etb: [id number] [place] [address]WL: [phone] (HP) [phone] 02/25/2018 Secondary ABBI C Bill Insurance:MEDICARE PART PARKERDOB: Community A BPolicy Number: [id number] Hospital [id number] Repository Date:2017-09-13 02/25/2018 Tertiary Insurance:SELF NOT GIVENUNK [employer] PAY INSURANCEPolicy Community Number: Effective Hospital Date:2018-02-15 Repository 01/19/2018 ABBI C Primary Insurance:AETNA ABBI [place] Bill [id number] MCRPolicy Number: PARKERDOB: Community ALEYDA PORTILLOBKLMGQEffective [id number] Center, Date:7461-18-45VN BOX Repository [place] [address]Pqh: [id number] [place] [address]FU: [phone] 01/19/2018 Secondary NOT GIVENUNK Bill Insurance:SELF PAY Community INSURANCEPolicy Number: Hospital Effective Repository Date:2018-01-19 11/20/2017 ABBI C Primary Insurance:AETNA ABBI H[place] Bill [id number] MCRPolicy Number: PARKERDOB: Community ALEYDA PORTILLOBKLMGQEffective [id number] Center, Date:8342-24-16CU BOX Repository [place] [address]Tze: [id number] [address]BB: [phone] (HP) [phone] 11/20/2017 Secondary ABBI C [employer] Insurance:MEDICARE PART PARKERDOB: Community A BPolicy Number: [id number] Hospital [id number] Repository Date:2017-11-20 11/20/2017 Tertiary Insurance:SELF NOT GIVENUNK [employer] PAY INSURANCEPolicy Community Number: Effective Hospital Date:2017-11-20 Repository 09/13/2017 ABBI C Primary Insurance:AETNA ABBI Hutton [employer] [id number] MCRPolicy Number: PARKERDOB: Community ALEYDA PORTILLOBKLMGQEffective [id number] Medical Center, Date:0856-12-97DJ BOX Repository [place] [address]Duq: [id number] [place] [address]WP: [phone] (HP) [phone] 09/13/2017 Secondary ABBI C Bill Insurance:MEDICARE PART PARKERDOB: Community A BPolicy Number: [id number] Hospital [id number] Repository Date:2017-06-22 09/13/2017 Tertiary Insurance:SELF NOT GIVENUNK Bill PAY INSURANCEPolicy Community Number: Effective Hospital Date:2017-09-11 Repository 07/30/2017 ABBI C Primary Insurance:AETNA ABBI Hutton Bill [id number] MCRPolicy Number: PARKERDOB: Community ALEYDA PORTILLOBKLMGQEffective [id number] Medical Center, Date:2124-00-40QA BOX Repository [place] [address]Otv: [id number] [place] [address]WP: [phone] (HP) [phone] 07/30/2017 Secondary NOT GIVENUNK [employer] Insurance:SELF PAY Community INSURANCEPolicy Number: Hospital Effective Repository Date:2017-07-05 07/14/2017 ABBI C Primary Insurance:AETNA ABBI [place] Bill [id number] MCRPolicy Number: PARKERDOB: Community ALEYDA MEBKLMGQEffective [id number] Medical Center, Date:9463-36-31LC BOX Repository [place] [address]Plf: [id number] [place] [address]WP: [phone]) (HP) [phone] 07/14/2017 Secondary NOT GIVENUNK [employer] Insurance:SELF PAY Community INSURANCEPolicy Number: Hospital Effective Repository Date:2017-07-14 07/13/2017 ABBI C Primary Insurance:AETNA ABBI C Bill [id number] MCRPolicy Number: PARKERDOB: [facility] MEBKLMGQEffective [id number] Medical Center, Date:5197-86-03EC [address] [place] [address]Ytr: [id number] [place] [address]WP: [phone] (HL) [phone] 07/13/2017 Secondary NOT GIVENSARAH Khan Insurance:SELF PAY [facility] INSURANCEPolicy Number: Hospital Effective Repository Date:2017-06-22
== END ==
PROVIDERS: Family Provider Family Medicine; PCP Family Medicine; Referring Provider Family Medicine; Visit Provider Family Medicine
DX: M79.661 Pain in right lower leg (principal)
CPT/HCPCS: 36415; 85379; 93971

== ENCOUNTER 2018-05-31 14:08 | Emergency (ER) | payer MEDICARE, SELFPAY ==
[2018-05-31 14:08] VITALS: BP 147/73; PULSE 84; RESP 16; TEMP 36.3; O2SAT 97; BMI 36.6
[2018-05-31 14:21] VITALS: TEMP 36.3
--- NOTE | 2018-05-31 14:37 | EKG12_ITS ---
Test Reason : ABN LABS Blood Pressure : / mmHG Vent. Rate : 081 BPM Atrial Rate : 081 BPM P-R Int : 166 ms QRS Dur : 080 ms QT Int : 386 ms P-R-T Axes : 066 048 063 degrees QTc Int : 448 ms Normal sinus rhythm Normal ECG Confirmed by ANNABEL REDD, HANG ([id number]), editor farm journal DEVIKA CASTELLANOS ([id number]) on 06/05/2018 3:34:23 PM Referred By: DC Confirmed By:HANG JIN MD
--- NOTE | 2018-05-31 14:37 | CT_ITS ---
STUDY: CTA CHEST REASON FOR EXAM: Female, 68 years old. Elevated d-dimer. RADIATION DOSAGE (If Supplied By Facility): CTDIvol = ( 20.03 ) mGy, DLP = ( 677.87 ) mGycm TECHNIQUE: The examination was performed with the intravenous administration of 100 ml of Isovue 370 contrast material. Post-processing of the angiographic images was performed, with multiplanar reformation and 3D reconstruction. Individualized dose optimization techniques were used for this CT. COMPARISON: Comparison is made with prior study dated July 14, 2013. FINDINGS: Normal enhancement of the main pulmonary artery and right and left pulmonary arteries. Normal enhancement of the bilateral peripheral pulmonary arteries. There is no demonstrated pulmonary embolism. Normal thoracic aorta and visualized great vessels. There is no demonstrated aortic dissection. Minimal thickening of the posterior basal aspect of the pericardium. Normal mediastinum. Normal hilar regions. Normal visualized trachea and bronchi. The lungs are well expanded. Normal pulmonary parenchyma. Normal pleura. Normal chest wall structures. There are degenerative changes of thoracic spine. Diffuse fatty infiltration of the liver. CT/CTA Chest W/WO Contrast IMPRESSION: There is no evidence of pulmonary embolism. Diffuse fatty infiltration of the liver. Electronically Signed: Jeyson Merritt MD at 15:50 EST Tel [phone], Service support ,
[2018-05-31 14:57] VITALS: O2SAT 100
[2018-05-31 15:07] LABS: Absolute Lymphocyte Count 1.45 X10^3/ul (0.83-4.51); Basophil# 0.03 X10^3/uL; Basophil% 0.4 % (0-1); Eosinophils% 1.4 % (0-5); Hematocrit 36.9 % (37-47); Hemoglobin 11.9 g/dl (12.0-15.0); Lymphocyte # 1.45 X10^3/ul (4.0); Lymphocyte % 20.1 % (19-41); Mean Corp Hgb Conc 32.2 g/gl (32-36); Mean Corpuscular Hgb 30.4 pg (27.0-32.0); Mean Corpuscular Volume 94.1 fL (81-99); Mean Platelet Vol. 10.3 fl (6.2-12.0); Monocyte# 0.56 X10^3/uL; Monocyte% 7.7 % (0-10); Neutrophil # 5.02 X10^3/uL (2.7-7.7); Neutrophil % 69.4 % (47-70); Platelet Count 224 K/mm3 (150-450); RBC Distribution Width CV 13.4 % (11.6-14.6); RBC Distribution Width SD 45.8 fl (35.1-43.9); Red Blood Count 3.92 M/mm3 (4.2-5.4); White Blood Count 7.2 K/mm3 (4.4-11.0)
[2018-05-31 15:12] LABS: POSITIVE COUNT NO; POSITIVE DIFFERENTIAL NO; POSITIVE MORPHOLOGY NO
[2018-05-31 15:22] LABS: Anion Gap 9 (5-15); BUN 17 mg/dL (7-18); BUN/Creat Ratio 18.7 RATIO (10-20); Calcium,Total 8.6 mg/dL (8.5-10.1); Chloride 103 mmol/L (98-107); Creatinine, Serum 0.91 mg/dL (0.55-1.02); EST Glomerular Filtration Rate 65 mL/min (>60); Est Glom Filt Rate - Afr Amer 79 mL/min (>60); Glucose 236 mg/dL (74-106); Sodium Level 139 mmol/L (136-145)
--- NOTE | 2018-05-31 15:59 | ED.VISSUMM ---
- ER Visit Summary Date of Service: 05/31/18 Chief Complaint: Here for a lung x-ray History of Present Illness: The patient is a 68 F who is here for further evaluation. She tells me that she has been having right leg swelling and pain. She had an ultrasound earlier today that was negative. She then underwent d-dimer testing which was elevated. She was referred for further evaluation. She says she has been feeling sick for about a week. She had some flulike symptoms, dry heaves, fatigue. She did have a recent chest x-ray which was unremarkable. She was started on antibiotics. No history of PE. No history of heart disease. She does have a history of COPD. Smoker. Physical Examination: Afebrile and vital signs unremarkable. No acute distress. Alert and oriented. Nontoxic. Heart regular. Lungs clear. Extremities unremarkable Test Results: EKG showed sinus rhythm at a rate of 81. No sign of acute ischemia or infarction pattern. Labs including troponin were unremarkable. CTA showed no evidence of PE or other acute pathology. Emergency Department Course and Treatment: Patient here for rule out PE. CTA negative. There is no indication for admission or further testing at this time. She was discharged to follow-up with her doctor. Treatment Plan: As above Disposition: Discharge Impression: 1. Right leg swelling This note was generated with [employer] dictation software. It may contain incorrect words, spelling, and punctuation that were not noted in review of the chart prior to signing ED Disposition - Plan for ED Patient: Chief Complaint: Abn Labs Referrals: Tom Mendez MD [Primary Care Provider] -
--- NOTE | 2018-05-31 16:02 | ED.DEP ---
ED Disposition - Plan for ED Patient: Chief Complaint: Abn Labs Instructions: D-Dimer Referrals: Tom Mendez MD [Primary Care Provider] -
[2018-05-31 16:22] VITALS: BP 139/67; PULSE 76; RESP 16; O2SAT 99
--- OUTSIDE RECORDS SUMMARY | 2018-09-04 06:13 | XMS RPT_ITS ---
:1950 Author Organization OHIP Support Name Relationship Address Phone MARYCRUZ MIX Unavailable [address] + [place] [address] R Unavailable Unavailable Unavailable MARIA DEL ROSARIOMARYCRUZ WANG Unavailable [address] + [place] [address] R Unavailable Unavailable Unavailable MARIA DE LROSARIOMARYCRUZ WANG Unavailable [address] + [place] [address] R Unavailable Unavailable Unavailable MARIA DEL ROSARIOMARYCRUZ WANG Unavailable [address] + [place] [address] R Unavailable Unavailable Unavailable MARIA DEL ROSARIOMARYCRUZ Unavailable [address] + [place] [address] R Unavailable Unavailable Unavailable MARIA DEL ROSARIOMARYCRUZ Unavailable [address] + [place] [address] R Unavailable Unavailable Unavailable MARIA DEL ROSARIOMARYCRUZ WANG Unavailable [address] + [place] [address] R Unavailable Unavailable Unavailable MARIA DEL ROSARIOMARYCRUZ WANG Unavailable [address] + [place] [address] R Unavailable Unavailable Unavailable MARIA DEL ROSARIOMARYCRUZ WANG Unavailable [address] + [place] [address] R Unavailable Unavailable Unavailable MARIA DEL ROSARIOMARYCRUZ Unavailable [address] + [place] [address] R Unavailable Unavailable Unavailable MARIA DEL ROSARIOMARYCRUZ WANG Unavailable [address] + [place] [address] R Unavailable Unavailable Unavailable Care Team Providers Name Role Phone HARI URBINA Referring Unavailable HARI URBINA Attending Unavailable HARI URBINA Referring Unavailable GUANACO PANCHAL (TIERRA) Attending Unavailable Scott Mendez Attending Unavailable Scott Mendez Referring Unavailable Scott Mendez Primary Care Unavailable Scott Mendez Attending Unavailable Scott Mendez Referring Unavailable Ranney, Christopher Primary Care Unavailable Saul, Rohit Attending Unavailable Saul, Rohit Referring Unavailable [place], [facility] Unavailable DeweyTrang schrader Attending Unavailable Ranatwood, Zortman Primary Care Unavailable Ranatwood, Zortman Primary Care Unavailable Remington Conte Attending Unavailable Ranney, Christopher Attending Unavailable Ranney, Christopher Referring Unavailable Ranney, [facility] [place] Primary Care Unavailable Saul, Rohit Attending Unavailable Saul, Rohit Referring Unavailable Saul, Rohit Attending Unavailable Ranney, Christopher Referring Unavailable Ranney, Christopher Attending Unavailable Ranney, [facility] [place] Primary Care Unavailable Ranney, [facility] [place] Primary Care Unavailable Catie Bucio Attending Unavailable Buico, Catie Referring Unavailable Saul, Rohit Attending Unavailable Ranney, Christopher Referring Unavailable PROBLEMS PROBLEMS DATE TYPE CONDITION / CODE ATTENDING STATUS SOURCE 07/03/2018 Unknown 250.00 - Diabetes Ranney, Active [place] mellitus without [facility] mention of Hospital complication, type Repository II or unspecified type, not stated as uncontrolled / 250.00(ICD-9) 07/03/2018 Unknown E11.9 - Type 2 Ranney, Active Scott diabetes mellitus [facility] without Hospital complications / Repository E11.9(ICD-10) 05/31/2018 Unknown M79.661 - Pain in Ransavana, Active [place] right lower leg / [facility] M79.661(ICD-10) Hospital Repository 12/18/2017 Active Pain, unspecified / NA Active [place] R52(ICD-10) Clinic Other [facility] Repository 07/25/2017 Unknown Z12.31 - Encounter Trang Dhillon Active Scott for screening Community mammogram for Hospital malignant neoplasm Repository of breast / Z12.31(ICD-10) 07/13/2017 Unknown R06.02 - Shortness Rohit Hughes Active [place] of breath / Community R06.02(ICD-10) Hospital Repository 07/13/2017 Unknown R06.00 - Dyspnea, SaulRohit veras Active [place] unspecified / Community R06.00(ICD-10) Hospital Repository 07/13/2017 Unknown R06.01 - Orthopnea Rohit Hughes Active Scott / R06.01(ICD-10) [facility] Repository PROCEDURES PROCEDURES No Procedure Records FoundRESULTS RESULTS BASIC METABOLIC Collected: 07/03/2018 Status: F Source: BILL PROFILE (BMP) 8[facility] AM [facility] Order Comment: Order Date: 02/26/18 Order Info: 0667-1 - BMP Order Info: 40460-0 - LIPID TYPE CODE TESTS RESULT OUT [...] 9 Performed By: #### L500.2500, L500.4100 #### [facility] [address] [place], [address] LIPID PROFILE Collected: 07/03/2018 Status: F Source: BILL 8:56 AM [facility] Order Comment: Order Date: 02/26/18 Order Info: 0667-1 - BMP Order Info: 42092-2 - LIPID TYPE CODE TESTS RESULT OUT [...] VLDL Performed By: #### L500.2500, L500.4100 #### [facility] [address] [place], [address] 12 LEAD ELECTROCARDIOGRAM Observed: 06/05/2018 Status: F Source: [place] 3:34 PM [facility] Cardiovascular Services [address] [place] [address] 12 Lead EKG 05/31/18 1447 MR#: [id number] Acct: [id number] Name: ABBI SHOOK Rep #: [id number] : 1950 68 From: Edward Merrill MD [...] ECG Confirmed by EDWARD MERRILL MD ([id number]), copy editor DEVIKA CASTELLANOS ([id number]) on 06/05/2018 3:34:23 PM Referred By: DC Confirmed By:EDWARD MERRILL MD 06/05/18 1534 Date Edward Merrill MD CC: Scott Mendez MD; Remington Conte MD Signed VENOUS DUPLEX LOWER Observed: 06/01/2018 Status: F Source: BILL EXTREMITY 1:46 PM [facility] Cardiovascular Services [address] [address] Venous Duplex US, Unilateral 05/31/18 1112 MR#: [id number] Acct: [id number] Name: ABBI SHOOK Rep #: [id number] : 1950 68 From: Slim Jacobson MD [...] to Andrea Muir @ 11:25 am @ [phone]. Interpretation Summary Deep veins of the right [...] Dictated: 05/31/18 1112 Date Transcribed: 06/01/18 1345 Public Welfare Worker: Signed DISCHARGE INSTRUCTION Observed: 05/31/2018 Status: F Source: BILL 4:14 PM [facility] RE[facility]IT[facility] Medical Records Department [address] [facility] [place] [address] Discharge Instruction 05/31/18 1602 MR#: [id number] Acct: [id number] Name: ABBI SHOOK Rep #: [id number] : 1950 68 From: Remington Conte MD PCP: Sctot Mendez MD Status: REG ER ED Disposition - Plan for ED Patient: Chief Complaint: Abn Labs Instructions: D-Dimer Referrals: Tom Mendez MD [Primary Care Provider] - What to do if you have Problems For any increased pain, shortness of breath, bleeding, nausea or vomiting, chest pain, or any unexpected problems, contact your Primary Care Provider. Call [facility] ([phone]) or report to the closest Emergency Room. Call 911 if necessary. 05/31/18 1614 <Electronically signed by Remington Conte MD> Date [facility] (If Indicated): Date CC: Scott Mendez MD EMERGENCY DEPARTMENT Observed: 05/31/2018 Status: F Source: BILL SUMMARY 4:14 PM [facility] REPOSIT[facility] Medical Records Department [address] [facility] [place] [address] Emergency Department Summary 12/14/18 1559 MR#: [id number] Acct: [id number] Name: ABBI SHOOK Rep #: [id number] : 1950 68 From: Remington Conte MD [...] leg swelling This note was generated with Approva dictation software. It may contain incorrect words, [...] problems, contact your Primary Care Provider. Call [facility] ([phone]) or report to the closest Emergency Room. Call 911 if necessary. 05/31/18 8095 <Electronically signed by Remington Conte MD> Date Remington Henriquezignshakila Signature (If Indicated): Date CC: Scott Mendez MD CBC W/DIFF, AUTOMATED Collected: 05/31/2018 Status: F Source: BILL 2:55 PM [facility] [place] [facility] TYPE CODE TESTS RESULT OUT OF [...] Lymph 1.45 Performed By: #### L100.0100 #### [facility] [address] [facility] [place], [address] BASIC METABOLIC Collected: 05/31/2018 Status: F Source: [place] PROFILE (BMP) 2:55 PM [facility] [place] [facility] TYPE CODE TESTS RESULT OUT OF [...] 9 Performed By: #### L500.2500, L501.4010 #### [facility] [address] [place], [place], [address] TROPONIN-I Collected: 05/31/2018 Status: F Source: [place] 2:55 PM [facility] [facility] TYPE CODE TESTS RESULT OUT OF RANGE REFERENCE UNITS LAB L501.4010 <0.045 ng/mL Normal < 0.015 TROPONIN-I Result Comment: TROPONIN-I EXPECTED VALUES <0.045 Negative 0.045 - 0.590 Consistent with Cardiac Damage > OR = 0.600 Critical Value Not every elevated troponin is indicative of AL. These values should be used with clinical judgement in examining the patient's clinical picture for diagnosis. To establish a diagnosis of AL versus myocardial injury, there must be a demonstrated rise and/or fall in the troponin values, in addition to ischemic symptoms, EKG changes, new regional wall motion abnormality, and/or angiographical evidence. PLEASE NOTE: REFERENCE RANGES EDITED 17 Performed By: #### L500.2500, L501.4010 #### [facility] [address] [facility] [place], [address] CTA CHEST W/WO Observed: 05/31/2018 Status: F Source: [place] CONTRAST 2:38 PM [facility] Imaging Services [address] [address] CTA Chest W/WO Contrast MR#: [id number] Acct: [id number] Name: ABBI SHOOK Rep #: [id number] : 1950 F 68 From: Jeyson Merritt MD PCP: Scott Mendez MD Status: REG ER Study: CTA Chest W/WO Contrast Date of Exam: 05/31/18 Exam# [id number] Ordering Dr: Remington Conte MD STUDY: CTA [...] Jeyson Merritt MD at 15:50 EST Tel [phone], Service support , CC: Scott Mendez MD; Remington Conte MD Public Welfare Worker: Signed D-DIMER QUANTITATIVE Collected: 05/31/2018 Status: F Source: [place] (DVT/PE) 11:58 AM [facility] TYPE CODE TESTS RESULT OUT OF [...] same . Performed By: #### L300.8000 #### [facility] [address] [facility] [place], [address] CHEST PA AND LATERAL Observed: 05/30/2018 Status: F Source: [place] 5:21 PM [facility] [place] [facility] Imaging Services [address] [place] [address] Chest PA and Lateral MR#: [id number] Acct: [id number] Name: ABBI SHOOK Rep #: [id number] : 1950 F 68 From: Terrence Castro MD PCP: Scott Mendez MD Status: REG CLI Study: Chest PA and Lateral Date of Exam: 05/30/18 Exam# [id number] Ordering Dr: Tom Mendez MD STUDY: X-RAY [...] Service support , CC: Scott Mendez MD Public Welfare Worker: Signed 12 LEAD ELECTROCARDIOGRAM Observed: 01/21/2018 Status: F Source: [place] 1:35 PM [facility] Cardiovascular Services [address] [place] [address] 12 Lead EKG 01/19/18 1738 MR#: [id number] Acct: [id number] Name: ABBI SHOOK Rep #: [id number] : 1950 67 From: Syed Bond MD [...] Normal ECG Confirmed by VARUN REDD, SYED ([id number]), copy editor DEVIKA CASTELLANOS ([id number]) on 01/21/2018 1:34:35 PM Referred By: Catie Bucio Confirmed By:SYED BOND MD 01/21/18 1334 Date Syed Bond MD CC: Scott Mendez MD; Catie Bucio MD Signed EMERGENCY DEPARTMENT Observed: 01/19/2018 Status: F Source: [place] SUMMARY 10:27 PM [facility] Medical Records Department [address] [place] [address] Emergency Department Summary 01/19/18 1909 MR#: [id number] Acct: [id number] Name: ABBI SHOOK Rep #: [id number] : 1950 67 From: Catie Bucio MD [...] Vertigo, improved This note was generated with Approva dictation software. It may contain incorrect words, [...] problems, contact your Primary Care Provider. Call [facility] ([phone]) or report to the closest Emergency Room. Call 911 if necessary. 01/19/182226 <Electronically signed by Catie Bucio MD> Date Catei Bucio MD Cosigner Signature (If Indicated): Date CC: Scott Mendez MD DISCHARGE INSTRUCTION Observed: 01/19/2018 Status: F Source: BILL 9:24 PM [facility] Medical Records Department [address] [place] [address] Discharge Instruction 01/19/182121 MR#: [id number] Acct: [id number] Name: ABBI SHOOK Rep #: [id number] : 1950 67 From: Catie Bucio MD PCP: Scott Mendez MD Status: [facility] ER ED Disposition - Plan for ED [...] your Primary Care Provider. Call [facility] ([phone]) or report to the closest Emergency Room. Call 911 if necessary. 01/19/182123 <Electronically signed by Catie Bucio MD> Date Catie Bucio MD Cosigner Signature (If Indicated): Date CC: Scott Mendez MD DISCHARGE INSTRUCTION Observed: 01/19/2018 Status: F Source: [place] 8:36 PM [facility] Medical Records Department [address] [place] [address] Discharge Instruction 01/19/182034 MR#: [id number] Acct: [id number] Name: ABBI SHOOK Rep #: [id number] : 1950 67 From: Catie Bucio MD PCP: Scott Mendez MD Status: [facility] ER ED Disposition - Plan for [...] your Primary Care Provider. Call [facility] ([phone]) or report to the closest Emergency Room. Call 911 if necessary. 01/19/182035 <Electronically signed by Catie Bucio MD> Date Catie Bucio MD Cosigner Signature (If Indicated): Date CC: Scott Mendez MD CBC W/DIFF, AUTOMATED Collected: 01/19/2018 Status: F Source: BILL 5:00 PM [facility] TYPE CODE TESTS RESULT OUT OF [...] Lymph 2.32 Performed By: #### L100.0100 #### [facility] [address] [facility] [place], [place], [address] BASIC METABOLIC Collected: 01/19/2018 Status: F Source: [place] PROFILE (BMP) 5:00 PM [facility] TYPE CODE TESTS RESULT OUT OF [...] GAP 6 Performed By: #### L500.2500 #### [facility] [address] [facility] [place], [place], [address] URINALYSIS, COMPLETE Collected: 01/19/2018 Status: F Source: [place] 5:00 PM [facility] Order Comment: How was Urine Obtained? [...] URINE SEEN Performed By: #### L400.0001 #### [facility] [place], [address] PROGRESS Observed: 01/16/2018 Status: COMPLETED Source: [place] 6:18 PM [facility] REPOSITORY O ID: [id number] Author: Hari Urbina Service: (none) Author Type: [...] and confirmation with both the patient and technical support analyst. Under sterile technique following verbal consent the [...] MD PROGRESS Observed: 12/25/2017 Status: COMPLETED Source: [place] 10:43 AM [facility] REPOSITORY HNO ID: [id number] Author: Guanaco Panchal (Pa) Service: (none) Author Type: Physician Cardiology Physician Assistant Type: Progress Notes Filed: 12/25/2017 10:46 AM [...] and confirmation with both the patient and technical support analyst. Under sterile technique following verbal consent the [...] PA-C CNOV Observed: 12/25/2017 Status: COMPLETED Source: [place] 10:00 AM [facility] REPOSITORY Office Visit (ORMDNA) ABBI SHOOK ([id number]) 1950 F Date Time Provider Department 12/25/17 [...] and confirmation with both the patient and technical support analyst. Under sterile technique following verbal consent the [...] 12/25/17 CNDEB Observed: 12/18/2017 Status: COMPLETED Source: [place] 1:00 PM [facility] REPOSITORY Office Visit (ORMDNA) ABBI SHOOK ([id number]) 1950 F Date Time Provider Department 12/18/17 1:00 PM HARI URBINA During your visit today, we recorded the following information about you: Weight Height 100.2 kg 1.575 m Carmen Medrano Ken 12/18/2017 1:05 PM Signed Patient presents with: Bilateral Knee Pain Carmen Sargent Mitchell Rogers 12/18/2017 1:05 PM Signed CONSULT ORTHOPAEDIC: KNEE PRIMARY CARE PHYSICIAN: Scott Mendez MD REFERRING PROVIDER: Hari Urbina MD [address] [place] [address] ASSESSMENT AND PLAN Impression: Left Knee Moderate [...] interfering with activities which include gardening, doing wet cleaner machine, walking, rising from a sitting position, standing [...] Laterality Date - COLONOSCOP W/ OR W/O [facility] SPEC 2014 Colonoscopy - EXCIS TENDON [...] GARGLE MOUTH WITH WATER AFTER EACH USE. Nztnr-SC9-GTV-ATN-ZJ0-Hsr-Astx (KRILL OIL) 1000-130(40-80) mg cap Take by [...] and confirmation with both the patient and technical support analyst. Under sterile technique following verbal consent the [...] Hari Urbina MD Referring Provider: HARI URBINA [[id number]] Allergies As of Date: 12/18/2017 Noted Allergy [...] BUILDER 01/16/2018 12/18/2017 Class: Suppress Questions Route: [facility] Encounter Status:Closed by HARI URBINA MD on 01/16/18 PROGRESS Observed: 12/18/2017 Status: COMPLETED Source: [place] 12:57 PM [facility] REPOSITORY HNO ID: [id number] Author: Carmen Medarno Ma Service: (none) Author Type: (none) Type: Progress Notes Filed: 01/16/2018 6:23 PM Note Text: CONSULT ORTHOPAEDIC: KNEE PRIMARY CARE PHYSICIAN: Scott Mendez MD REFERRING PROVIDER: Hari Urbina MD [address] [address] ASSESSMENT AND PLAN Impression: Left Knee Moderate [...] interfering with activities which include gardening, doing wet cleaner machine, walking, rising from a sitting position, standing [...] Laterality Date - COLONOSCOP W/ OR W/O [facility] SPEC 2014 Colonoscopy - EXCIS TENDON [...] GARGLE MOUTH WITH WATER AFTER EACH USE. Itkox-FR9-HEW-PTF-RB5-Kmd-Astx (KRILL OIL) 1000-130(40-80) mg cap Take by [...] PM PROGRESS Observed: 12/18/2017 Status: COMPLETED Source: [place] 12:38 PM [facility] REPOSITORY O ID: [id number] Author: Henrietta (Ct) DAYNA Escobar Service: (none) Author Type: Clinical Nurses Assistant Type: Progress Notes Filed: 12/18/2017 12:38 PM Note Text: NAME:Abbi Shook DATE: December 18, 2017 CCF#: [id number] Pelvis X-Ray and Lower Extremity X-Ray(s): Knee, AP / Lat / Merchant Bilateral and Wt. Bearing COMPLETED TECH ID SIGN: HENRIETTA ESCOBAR XR KNEE 3V AP/LAT/BRIAN Observed: 12/18/2017 Status: F Source: [facility] 12:33 PM [facility] REPOSITORY * * *Final Report* * * DATE OF EXAM: Dec 18 2017 12:33PM BREE 5635 - XR KNEE 3V AP/LAT/BRIAN JESSICA / PROCEDURE REASON: D09-Hzam, unspecified * * * * Physician Interpretation [...] as discussed under Results portion of report.. Public Welfare Worker: SHILPA Transcribe Date/Time: Dec 18 2017 2:45P Dictated by : MARSHALL ELI DO This examination was interpreted and the report reviewed and electronically signed by: MARSHALL ELI DO on Dec 18 2017 2:45PM EST [id number] XR PELVIS 1V AP Observed: 12/18/2017 Status: F Source: [place] 12:32 PM [facility] REPOSITORY * * *Final Report* * * DATE OF EXAM: Dec 18 2017 12:32PM [facility] 5239 - XR PELVIS 1V AP / PROCEDURE REASON: Q27-Hyda, unspecified * * * * Physician Interpretation [...] seen. IMPRESSION: Stable bilateral total hip arthroplasties. Public Welfare Worker: SHILPA Transcribe Date/Time: Dec 18 2017 2:44P Dictated by : MARSHALL ELI DO This examination was interpreted and the report reviewed and electronically signed by: MARSHALL ELI DO on Dec 18 2017 2:45PM EST [id number] DOWNTIME REPORT Observed: 12/06/2017 Status: F Source: [place] 1:53 PM [facility] Medical Records Department [address] [place] [address] Downtime Report MR#: [id number] Acct: [id number] Name: ABBI SHOOK Rep #: [id number] : 1950 67 From: Maurilio Castellanos PCP: Scott Mendez MD Status: REG CLI This patient was seen during an EMR downtime November 19, 2017 - November 26, 2017. This patient may have a combination of paper and electronic documentation or all paper documentation. All documentation is viewable within the e-chart portion of [employer] for each patient visit. COMPREHENSIVE METABOLIC Collected: 11/20/2017 Status: F Source: [place] 12:10 PM [facility] Order Comment: Order Date: 07/30/17 Order Info: 0786-1 - CMP Order Info: [id number] - LIPID Order Info: 3016-3 - TSH [...] By: #### L500.4050, L500.4100, L501.9520, L506.1000 #### [facility] [address] [place], [place], [address] LIPID PROFILE Collected: 11/20/2017 Status: F Source: [place] 12:10 PM [facility] Order Comment: Order Date: 07/30/17 Order Info: 0786-1 - CMP Order Info: [id number] - LIPID Order Info: 3016-3 - TSH [...] By: #### L500.4050, L500.4100, L501.9520, L506.1000 #### [facility] [address] [place], [address] THYROID STIM HORMONE Collected: 11/20/2017 Status: F Source: BILL (TSH) 12:10 PM [facility] Order Comment: Order Date: 07/30/17 Order Info: 0786-1 - CMP Order Info: [id number] - LIPID Order Info: 3016-3 - TSH RESULT(S) PREVIOUSLY REPORTED ON MANUAL REQUISITION DURING DOWNTIME. TYPE CODE TESTS RESULT OUT OF RANGE REFERENCE UNITS LAB L501.9520 0.358-3.74 uIU/mL Normal TSH 3.27 Performed By: #### L500.4050, L500.4100, L501.9520, L506.1000 #### [facility] [address] [place], [address] VITAMIN D,25 HYDROXY Collected: 11/20/2017 Status: F Source: [place] 12:10 PM [facility] Order Comment: Order Date: 07/30/17 Order Info: 66862-4 - VITD25 TYPE CODE TESTS RESULT OUT [...] By: #### L500.4050, L500.4100, L501.9520, L506.1000 #### [facility] [address] [place], [address] HEMOGLOBIN A1C Collected: 11/20/2017 Status: F Source: [place] 12:10 PM [facility] Order Comment: RESULT(S) PREVIOUSLY REPORTED ON MANUAL REQUISITION DURING DOWNTIME. TYPE CODE TESTS RESULT OUT OF RANGE REFERENCE UNITS LAB L501.9985 4.2-6.3 % High HGB A1C 9.9 Performed By: #### L501.9985 #### [facility] [address] [facility] [address] [place], [address] PULMONARY VISIT REPORT Observed: 09/14/2017 Status: F Source: [place] 6:14 AM [facility] [address] [place] [address] OFFICE VISIT Date of Service: 09/13/17 MR#: [id number] Acct: [id number] Name: ABBI SHOOK Rep #: [id number] : 1950 Provider: Rohit Hughes MD Age/Sex: 67/F Location: [facility] [place] [place].PMW Status: Signed Assessment AND Plan 1. Stage [...] Other Medications New: Follow Up 6 Months ([facility]) HPI 2 M FU: [...] mg PO QHS 07/14/14 [History Confirmed 09/13/17] Swanzey 3 1,000 mg Softgel 1 cap PO DAILY 03/03/16 [History Confirmed 09/13/17] Tiotropium [place] [Spiriva] 1 inhaler INHALATION DAILY 03/03/16 [History [...] signed by Rohit Hughes MD> Date Rohit Hugehs MD Cosigner Signature: Date (if applicable) CC: Scott Mendez MD SCREENING MAMM (CAD), Observed: 07/30/2017 Status: F Source: [facility] 1:28 PM [facility] Imaging Services [address] [place] [address] SCREENING MAMM (CAD), BIL MR#: [id number] Acct: [id number] Name: ABBI SHOOK Rep #: [id number] : 1950 F 67 From: Jeyson Merritt MD PCP: Scott Mendez MD Status: REG CLI Study: SCREENING MAMM (CAD), BIL Date of Exam: 07/30/17 Exam# [id number] Ordering Dr: Trang Dhillon MASS SPECTROMETRY MANAGER-Anni MAMMOGRAPHY - BILATERAL DIAGNOSTIC REASON FOR EXAM: [...] Jeyson Merritt MD at 15:30 EST Tel [phone], Service support , CC: ERICK Dhillon; Scott Mendez MD Public Welfare Worker: Signed PULMONARY FUNCTION Observed: 07/14/2017 Status: F Source: [place] REPORT COMP 6:29 AM [facility] Pulmonary Services/Neurology [address] [place] [address] [place] [address] MR#: [id number] Acct: [id number] Name: ABBI SHOOK Rep #: [id number] : 1950 67 From: Rohit Hughes MD Referring Dr: Rohit Hughes MD Status: REG CLI Ordering Dr: Date: Location: PSN Sex: F C COMPLETE PULMONARY FUNCTION TEST INTERPRETATION Brief HPI: Patient is a 67 year old female, currently under the care of myself, who presents to [facility] for complete pulmonary function tests secondary [...] MD Date Dictated: 07/14/17624 Date Transcribed: 07/14/17624 Public Welfare Worker: BOBBY Signed ALLERGIES ALLERGIES DATE TYPE / NAME / CODE REACTION SEVERITY SOURCE CODE 05/31/2018 Drug amlodipine Unknown Unknown [place] Allergy/41 besylate/[id number][id number] 05/31/2018 Drug Penicillins/[id number] Unknown Unknown [place] Allergy/41 6(RXNORM) Community [id number]([facility]) Repository 05/31/2018 Drug Sulfa (Sulfonamide Other - gi [place] Bill Allergy/41 Antibiotics)/[id number] upset Community 1740500([facility](RXNORM) [facility]) Repository 05/31/2018 Drug losartan/[id number](R Unknown Unknown [place] Allergy/41 XNORM) Community 0312919([facility]) Repository 09/13/2017 Drug oxymetazoline Other - [place] Bill Allergy/41 HCl/[id number](RXNORM nosebleed [id number] Repository 09/13/2017 Drug pseudoephedrine Other - [place] Scott Allergy/41 sulfate/P090417146(RX nosebleed Community 3975919(SN NORM) Hospital OMED CT) Repository 07/01/2010 DRUG NICKEL UNKNOWN [place] INGREDI/41 Clinic Other 5013129([facility] OMED CT) Repository 02/01/2010 Drug PENICILLINS [place] Class/4195 Clinic Other 03615([facility] ED CT) Repository ENCOUNTERS ENCOUNTERS ADMIT/DISCHARGE ACCOUNT ADMITTING ENCOUNTER LOCATION SOURCE NUMBER CLASS 07/03/2018 [id number] Ambulatory [facility] ing:MTLAB Repository 05/31/2018/05/31/20 [id number] Emergency [address] ing:ED Repository 05/31/2018 [id number] Ambulatory [facility] ing:CVS Repository 05/30/2018 [id number] Ambulatory [facility] ing:MTRAD Repository 02/25/2018 [id number] Ambulatory BMSBuilding:B Bill [facility] Repository 01/19/2018/01/20/20 [id number] Emergency [address] ing:ED Repository 12/25/2017/12/28/19 [id number] Ambulatory [address] [place] Repository 12/18/2017/01/18/20 [id number] Ambulatory [address] [place] Repository 12/18/2017/12/19/19 [id number] Ambulatory [address] Other [place] Repository 11/20/2017 [id number] Ambulatory [facility] ing:MFPLAB Repository 09/13/2017/09/14/19 [id number] Ambulatory BMSBuilding:B Bill 18 [place].[facility] Repository 07/30/2017 [id number] Ambulatory [facility] Hospital ing:BI Repository 07/14/2017 [id number] [facility] 07/13/2017 [id number] Ambulatory [facility] ing:PSN Repository PAYERS PAYERS ENCOUNTER GUARANTOR PAYER SUBSCRIBER SOURCE 07/03/2018 ABBI Hutton Primary Insurance:PATRICK [id number] [facility] HOLGERDOB[facility] MEBKLMGQEffective [id number], Date:0277-26-36DB [address]OX Repository [place] [address]Lez: [id number] [place] [address]WP: [phone] (HP) [phone] 07/03/2018 Secondary NOT GIVENUNK Scott Insurance:SELF PAY Community INSURANCEPolicy Number: Hospital Effective Repository Date:2018-07-03 05/31/2018 ABBI Hutton Primary Insurance:AETNA ABBI C Scott [id number] MCRPolicy Number: PARKERDOB: Community ALEYDA MEBKLMGQEffective [id number], Date:2776-13-94WQ BOX Repository [place] [address]Rqn: [id number] [place] ) [phone] [address]WP: [phone] (HP) [phone] 05/31/2018 Secondary NOT GIVENUNK Bill Insurance:SELF PAY Community INSURANCEPolicy Number: Hospital Effective Repository Date:2018-05-31 05/31/2018 ABBI C Primary Insurance:AETNA ABBI C Bill [id number] MCRPolicy Number: PARKERDOB: Community ALEYDA MEBKLMGQEffective [id number] Hospital, Date:2827-36-06EL BOX Repository [place] [address]Azn: [id number] EZ[place] ) [phone] [address]WP: [phone] ([phone] 05/31/2018 Secondary NOT GIVENUNK Scott Insurance:SELF PAY Community INSURANCEPolicy Number: Hospital Effective Repository Date:2018-05-31 05/30/2018 ABBI C Primary Insurance:AETNA ABBI C Scott [id number] MCRPolicy Number: PARKERDOB: Community ALEYDA BKLMGQEffective [id number] Hospital, Date:9949-02-51CN [place]OX [place]ository [place] [address]Aup: [id number] [place] [address]WP: [phone] (HP) [phone] 05/30/2018 Secondary NOT GIVENUNK Scott Insurance:SELF PAY Community INSURANCEPolicy Number: Hospital Effective Repository Date:2018-05-30 02/25/2018 ABBI C Primary Insurance:AETNA ABBI Hutton Bill [id number] MCRPolicy Number: PARKERDOB: Community ALEYDA PORTILLOBKLMGQEffective [id number] Memorial Hospital, Date:9366-78-89LZ BOX Repository [place] [address]Blf: [id number] [place] [address]XX: [phone] (HP) [phone] 02/25/2018 Secondary ABBI C Bill Insurance:MEDICARE PART PARKERDOB: Community A BPolicy Number: [id number] Hospital [id number] Repository Date:2017-09-13 02/25/2018 Tertiary Insurance:SELF NOT GIVENUNK Scott PAY INSURANCEPolicy Community Number: Effective Hospital Date:2018-02-15 Repository 01/19/2018 ABBI C Primary Insurance:AETNA ABBI Hutton Bill [id number] MCRPolicy Number: PARKERDOB: Community ALEYDA PORTILLOBKLMGQEffective [id number] Memorial Hospital, Date:3323-52-41JH BOX Repository [place] [address]Ymd: [id number] MONTILLA [address]KL: [phone] 01/19/2018 Secondary NOT GIVENUNK Bill Insurance:SELF PAY Community INSURANCEPolicy Number: Hospital Effective Repository Date:2018-01-19 11/20/2017 ABBI C Primary Insurance:AETNA ABBI Hutton Bill [id number] MCRPolicy Number: PARKERDOB: Community ALEYDA PORTILLOBKLMGQEffective [id number] Memorial Hospital, Date:2910-45-05FG BOX Repository [place] [address]Oey: [id number] [place] [address]CJ: [phone] (HP) [phone] 11/20/2017 Secondary ABBI C Scott Insurance:MEDICARE PART PARKERDOB: Community A BPolicy Number: [id number] Hospital [id number] Repository Date:2017-11-20 11/20/2017 Tertiary Insurance:SELF NOT GIVENUNK [place] PAY INSURANCEPolicy Community Number: Effective Hospital Date:2017-11-20 Repository 09/13/2017 ABBI C Primary Insurance:AETNA ABBI Hutton Scott [id number] MCRPolicy Number: PARKERDOB: Community ALEYDA PORTILLOBKLMGQEffective [id number] Memorial Hospital, Date:0733-87-55EX BOX Repository [place] [address]Lnr: [id number] MONTILLA [address]WP: [phone] (HP) [phone] 09/13/2017 Secondary ABBI C Bill Insurance:MEDICARE PART PARKERDOB: Community A BPolicy Number: [id number] [id number] Repository Date:2017-06-22 09/13/2017 Tertiary Insurance:SELF NOT GIVENUNK Bill PAY INSURANCEPolicy Community Number: Effective Hospital Date:2017-09-11 Repository 07/30/2017 ABBI C Primary Insurance:AETNA ABBI Hutton Bill [id number] MCRPolicy Number: PARKERDOB: Community ALEYDA PORTILLOBKLMGQEffective [id number], Date:1332-26-34KT BOX Repository [place] [address]Afn: [id number] MONTILLA [address]WP: [phone] (HP) [phone] 07/30/2017 Secondary NOT GIVENUNK Scott Insurance:SELF PAY Community INSURANCEPolicy Number: Hospital Effective Repository Date:2017-07-05 07/14/2017 ABBI C Primary Insurance:AETNA ABBI Hutton Bill [id number] MCRPolicy Number: PARKERDOB: Community ALEYDA MEBKLMGQEffective [id number] Memorial Hospital, Date:0844-76-08HC BOX Repository [place] [address]Ape: [id number] MONTILLA [address]WP: [phone] (HP) [phone] 07/14/2017 Secondary NOT GIVENUNK Scott Insurance:SELF PAY Community INSURANCEPolicy Number: Hospital Effective Repository Date:2017-07-14 07/13/2017 ABBI C Primary Insurance:AETNA ABBI C Bill [id number] MCRPolicy Number: PARKERDOB: [facility] MEBKLMGQEffective [id number] Memorial Hospital, Date:0606-81-51DD BOX Repository [place] [address]Vna: [id number] JAX H[place] [address]WP: [phone] ([phone] 07/13/2017 Secondary NOT GIVENSARAH Khan Insurance:SELF PAY [facility] INSURANCEPolicy Number: Hospital Effective Repository Date:2017-06-22
== END 2018-05-31 16:22 | disposition home or self-care (01) ==
PROVIDERS: Emergency Provider Emergency Medicine; Family Provider Family Medicine; PCP Family Medicine
DX: M79.89 Other specified soft tissue disorders (principal); M79.661 Pain in right lower leg; J44.9 Chronic obstructive pulmonary disease, unspecified; R74.9 Abnormal serum enzyme level, unspecified; F17.200 Nicotine dependence, unspecified, uncomplicated
CPT/HCPCS: 71275; 80048; 84484; 85025; 93005; 99284; Q9967; A4216

== ENCOUNTER → 2018-07-03 08:53 | Outpatient (CLI) | payer MEDICARE, SELFPAY ==
[2018-07-03 10:31] LABS: Anion Gap 9 (5-15); BUN 21 mg/dL (7-18); BUN/Creat Ratio 24.2 RATIO (10-20); Calcium,Total 9.1 mg/dL (8.5-10.1); Chloride 100 mmol/L (98-107); Cholesterol 184 mg/dL (200); Creatinine, Serum 0.87 mg/dL (0.55-1.02); EST Glomerular Filtration Rate 69 mL/min (>60); Est Glom Filt Rate - Afr Amer 84 mL/min (>60); Glucose 169 mg/dL (74-106); High Density Lipoprotein 45 mg/dL; Sodium Level 138 mmol/L (136-145); Triglycerides 435 mg/dL
--- OUTSIDE RECORDS SUMMARY | 2018-09-07 00:06 | XMS RPT_ITS ---
:1950 Author Organization OHIP Support Name Relationship Address Phone MARYCRUZ MIX Unavailable [address] + [place] [address] R Unavailable Unavailable Unavailable MARIA DEL ROSARIOMARYCRUZ WANG Unavailable [address] + [place] [address] R Unavailable Unavailable Unavailable MARIA DEL ROSARIOMARYCRUZ WANG Unavailable [address] + [place] [address] R Unavailable Unavailable Unavailable MARIA DEL ROSARIOMARYCRUZ WANG Unavailable [address] + [place] [address] R Unavailable Unavailable Unavailable MARIA DEL ROSARIOMARYCRUZ WANG Unavailable [address] + [place] [address] R Unavailable Unavailable Unavailable MARIAD EL ROSARIOMARYCRUZ Unavailable [address] + [place] [address] R Unavailable Unavailable Unavailable MARIA DEL ROSARIOMARYCRUZ WANG Unavailable [address] + [place] [address] R Unavailable Unavailable Unavailable MARIA DEL ROSARIOMARYCRUZ WANG Unavailable [address] + [place] [address] R Unavailable Unavailable Unavailable MARIA DEL ROSARIOMARYCRUZ WANG Unavailable [address] + [place] [address] R Unavailable Unavailable Unavailable MARIA DEL ROSARIOMARYCRUZ Unavailable [address] + [place] [address] R Unavailable Unavailable Unavailable Care Team Providers Name Role Phone HARI URBINA Referring Unavailable HARI URBINA Attending Unavailable HARI URBINA Referring Unavailable GUANACO PANCHAL) Attending Unavailable Scott Mendez Attending Unavailable Scott Mendez Referring Unavailable Scott Mendez Primary Care Unavailable Scott Mendez Attending Unavailable Scott Mendez Referring Unavailable Scott Mendez Primary Care Unavailable Trang Dhillon Attending Unavailable Scott Mendez Primary Care Unavailable Rohit Hughes Attending Unavailable Ranney, Christopher Referring Unavailable Andrea, [place] Primary Care Unavailable Remington Conte Attending Unavailable Ranstonewall, Scott Attending Unavailable Ranstonewall, Christopher Referring Unavailable Ranstonewall, [place] Primary Care Unavailable Ranney, Christopher Attending Unavailable [facility] Unavailable [place], [facility] Unavailable Catie Bucio Attending Unavailable Catie Bucio Referring Unavailable Rohit Hughes Attending Unavailable Andrea, Scott Referring Unavailable Saul, Rohit Attending Unavailable Saul, Rohit Referring Unavailable Ranstonewall, [place] Primary Care Unavailable PROBLEMS PROBLEMS DATE TYPE CONDITION / CODE ATTENDING STATUS SOURCE 07/03/2018 Unknown 250.00 - Diabetes Ransavana, Active [place] mellitus without [facility] mention of Hospital complication, type Repository II or unspecified type, not stated as uncontrolled / 250.00(ICD-9) 07/03/2018 Unknown E11.9 - Type 2 Ransavana, Active [place] diabetes mellitus [facility] without Hospital complications / Repository E11.9(ICD-10) 05/31/2018 Unknown M79.661 - Pain in Andrea, Active [place] right lower leg / [facility] M79.661(ICD-10) Hospital Repository 12/18/2017 Active Pain, unspecified / NA Active [place] R52(ICD-10) Clinic Other [place] Repository 07/25/2017 Unknown Z12.31 - Encounter Trang Dhillon Active [place] for screening Community mammogram for Hospital malignant neoplasm Repository of breast / Z12.31(ICD-10) 07/13/2017 Unknown R06.02 - Shortness SaulRohit Active [place] of breath / Community R06.02(ICD-10) Hospital Repository 07/13/2017 Unknown R06.00 - Dyspnea, Rohit Hughes Active [place] unspecified / Community R06.00(ICD-10) Hospital Repository 07/13/2017 Unknown R06.01 - Orthopnea Rohit Hughes Active [place] / R06.01(ICD-10) Pending Sale To [facility] Repository PROCEDURES PROCEDURES No Procedure Records FoundRESULTS RESULTS BASIC METABOLIC Collected: 07/03/2018 Status: F Source: BILL PROFILE (BMP) 8:56 AM [facility] RE[facility]ITORY Order Comment: Order Date: 02/26/18 Order Info: 0667-1 - BMP Order Info: 48779-7 - LIPID TYPE CODE TESTS RESULT OUT [...] 9 Performed By: #### L500.2500, L500.4100 #### [facility] [address] [place], [address] LIPID PROFILE Collected: 07/03/2018 Status: F Source: BILL 8:56 AM [facility] [place] Order Comment: Order Date: 02/26/18 Order Info: 0667-1 - BMP Order Info: 08105-2 - LIPID TYPE CODE TESTS RESULT OUT [...] VLDL Performed By: #### L500.2500, L500.4100 #### [facility] [address] [place], [address] 12 LEAD ELECTROCARDIOGRAM Observed: 06/05/2018 Status: F Source: BILL 3:34 PM [facility] [place] [facility] Cardiovascular Services [address] [place] [address] 12 Lead EKG 05/31/18 1447 MR#: [id number] Acct: [id number] Name: ABBI SHOOK Rep #: [id number] : 1950 68 From: Edward Merrill MD Attending Dr: Status: DEP ER Ordering Dr: Remington Conte MD Date: 05/31/18 [...] Normal sinus rhythm Normal ECG Confirmed by ANNABEL REDD, EDWARD ([id number]), news editor DEVIKA CASTELLANOS ([id number]) on 06/05/2018 3:34:23 PM Referred By: DC Confirmed By:EDWARD MERRILL MD 06/05/18 1534 Date Edward Merrill MD CC: Scott Mendez MD; Remington Conte MD Signed VENOUS DUPLEX LOWER Observed: 06/01/2018 Status: F Source: BILL EXTREMITY 1:46 PM [facility] [place] [facility] Cardiovascular Services [address] [address] Venous Duplex US, Unilateral 05/31/18 1112 MR#: [id number] Acct: [id number] Name: ABBI SHOOK Rep #: [id number] : 1950 68 From: Slim Jacobson MD [...] to Andrea Muir @ 11:25 am @ [phone]. Interpretation Summary Deep veins of the right lower extremity are patent and compressible segmentally. There is no evidence of right lower extremity deep vein thrombosis. Valvular competence appears intact within the proximal deep venous system on the right . The right greater saphenous vein appears patent and compressible segmentally. Ordering Physician: Scott Mendez Referring Physician: Scott Mendez Performed By: Marbella Hilliard, GERALD, RVT 06/01/18 1345 Date Slim Jacobson MD CC: Scott Mendez MD Date Dictated: 05/31/18 1112 Date Transcribed: 06/01/18 1345 Camouflage Assembler: Signed DISCHARGE INSTRUCTION Observed: 05/31/2018 Status: F Source: IBLL 4:14 PM [facility] REPOSITORY [facility] Medical Records Department [address] [place] [address] Discharge Instruction 05/31/18 1602 MR#: [id number] Acct: [id number] Name: ABBI SHOOK Rep #: [id number] : 1950 68 From: Remington Conte MD [...] your Primary Care Provider. Call [facility] ([phone]) or report to the closest Emergency Room. Call 911 if necessary. 05/31/18 1614 <Electronically signed by Remington Conte MD> Date [facility] Signature (If Indicated): Date CC: Scott Mendez MD EMERGENCY DEPARTMENT Observed: 05/31/2018 Status: F Source: BILL SUMMARY 4:[address] [facility] Medical Records Department [address] [place] [address] Emergency Department Summary 05/31/18 1559 MR#: [id number] Acct: [id number] Name: ABBI SHOOK Rep #: [id number] : 1950 68 From: Remington Conte MD [...] leg swelling This note was generated with [employer] dictation software. It may contain incorrect words, [...] problems, contact your Primary Care Provider. Call [facility] [facility] ([phone]) or report to the closest Emergency Room. Call 911 if necessary. 05/31/18 0607 <Electronically signed by Remington Conte MD> Date Remington Conte MD Cosigner Signature (If Indicated): Date CC: Scott Mendez MD CBC W/DIFF, AUTOMATED Collected: 05/31/2018 Status: F Source: BILL 2:55 PM [facility] [place] TYPE CODE TESTS RESULT OUT OF [...] Lymph 1.45 Performed By: #### L100.0100 #### [facility] [address] [place], [address] BASIC METABOLIC Collected: 05/31/2018 Status: F Source: BILL PROFILE (BMP) 2:55 PM [facility] [place] TYPE CODE TESTS RESULT OUT OF [...] 9 Performed By: #### L500.2500, L501.4010 #### [facility] [address] [place], [address] TROPONIN-I Collected: 05/31/2018 Status: F Source: BILL 2:55 PM [facility] [place] TYPE CODE TESTS RESULT OUT OF RANGE REFERENCE UNITS LAB L501.4010 <0.045 ng/mL Normal < 0.015 TROPONIN-I Result Comment: TROPONIN-I EXPECTED VALUES <0.045 Negative 0.045 - 0.590 Consistent with Cardiac Damage > OR = 0.600 Critical Value Not every elevated troponin is indicative of [place]. These values should be used with clinical judgement in examining the patient's clinical picture for diagnosis. To establish a diagnosis of [place] versus myocardial injury, there must be a demonstrated rise and/or fall in the troponin values, in addition to ischemic symptoms, EKG changes, new regional wall motion abnormality, and/or angiographical evidence. PLEASE NOTE: REFERENCE RANGES EDITED 17 Performed By: #### L500.2500, L501.4010 #### [facility] [address] [place], [address] CTA CHEST W/WO Observed: 05/31/2018 Status: F Source: [place] CONTRAST 2:38 PM [facility] [place] [facility] Imaging Services [address] [place] [address] CTA Chest W/WO Contrast MR#: [id number] Acct: [id number] Name: ABBI SHOOK Rep #: [id number] : 1950 F 68 From: Jeyson Merritt MD PCP: Scott Mendez MD Status: REG ER Study: CTA Chest W/WO Contrast Date of Exam: 05/31/18 Exam# [id number] Ordering Dr: Remington Conte MD STUDY: CTA [...] Jeyson Merritt MD at 15:50 EST Tel [phone], Service support , CC: Scott Mendez MD; Remington Conte MD Camouflage Assembler: Signed D-DIMER QUANTITATIVE Collected: 05/31/2018 Status: F Source: BILL (DVT/PE) 11:58 AM [facility] [place] TYPE CODE TESTS RESULT OUT OF [...] same . Performed By: #### L300.8000 #### [facility] [address] [place], [address] CHEST PA AND LATERAL Observed: 05/30/2018 Status: F Source: BILL 5:21 PM [facility] [place] [facility] Imaging Services [address] [place] [address] Chest PA and Lateral MR#: [id number] Acct: [id number] Name: HOLGERABBI Anni Rep #: [id number] : 1950 F 68 From: Terrence Castro MD PCP: Scott Mendez MD Status: REG CLI Study: Chest PA and Lateral Date of Exam: 05/30/18 Exam# [id number] Ordering Dr: Tom Mendez MD STUDY: X-RAY [...] Service support , CC: Scott Mendez MD Camouflage Assembler: Signed 12 LEAD ELECTROCARDIOGRAM Observed: 01/21/2018 Status: F Source: [place] 1:35 PM [facility] [place] [facility] Cardiovascular Services [address] [place] [address] 12 Lead EKG 01/19/18 1738 MR#: [id number] Acct: [id number] Name: ABBI SHOOK Anni Rep #: [id number] : 1950 67 From: Syed Bond MD [...] Normal ECG Confirmed by VARUN REDD, SYED ([id number]), news editor DEVIKA CASTELLANOS (56) on 01/21/2018 1:34:35 PM Referred By: Catie Bucio Confirmed By:SYED BOND MD 01/21/18 1334 Date Syed Bond MD CC: Scott Mendez MD; Catie Bucio MD Signed EMERGENCY DEPARTMENT Observed: 01/19/2018 Status: F Source: [place] SUMMARY 10:27 PM [facility] [place] [facility] Medical Records Department [address] [address] Emergency Department Summary 01/19/18 1909 MR#: [id number] Acct: [id number] Name: ABBI SHOOK Rep #: [id number] : 1950 67 From: Catie Bucio MD [...] Vertigo, improved This note was generated with [employer] dictation software. It may contain incorrect words, [...] your Primary Care Provider. Call [facility] ([phone]) or report to the closest Emergency Room. Call 911 if necessary. 01/19/182226 <Electronically signed by Catie Bucio MD> Date Catie Bucio MD Cosigner Signature (If Indicated): Date CC: Scott Mendez MD DISCHARGE INSTRUCTION Observed: 01/19/2018 Status: F Source: [place] 9:24 PM [facility] [place] [facility] Medical Records Department [address] [address] Discharge Instruction 01/19/182121 MR#: [id number] Acct: [id number] Name: HOLGERABBI C Rep #: [id number] : 1950 67 From: Catie Bucio MD PCP: Scott Mendez MD Status: DEP ER ED Disposition - Plan for ED [...] your Primary Care Provider. Call [facility] ([phone]) or report to the closest Emergency Room. Call 911 if necessary. 01/19/182123 <Electronically signed by Catie Bucio MD> Date Catie Bucio MD Cosigner Signature (If Indicated): Date CC: Scott Mendez MD DISCHARGE INSTRUCTION Observed: 01/19/2018 Status: F Source: [place] 8:36 PM [facility] [place] [facility] Medical Records Department [address] [place] [address] Discharge Instruction 01/19/182034 MR#: [id number] Acct: [id number] Name: ABBI SHOOK Rep #: [id number] : 1950 67 From: Catie Bucio MD PCP: Scott Mendez MD Status: REG [...] problems, contact your Primary Care Provider. Call [employer] [facility] ([phone]) or report to the closest Emergency Room. Call 911 if necessary. 01/19/182035 <Electronically signed by Catie Bucio MD> Date Catie Rangel Signature (If Indicated): Date CC: Scott Mendez MD CBC W/DIFF, AUTOMATED Collected: 01/19/2018 Status: F Source: BILL 5:00 PM [facility] [place] TYPE CODE TESTS RESULT OUT OF [...] Lymph 2.32 Performed By: #### L100.0100 #### [facility] [address] [place], [address] BASIC METABOLIC Collected: 01/19/2018 Status: F Source: [place] PROFILE (BMP) 5:00 PM [facility] [place] TYPE CODE TESTS RESULT OUT OF [...] GAP 6 Performed By: #### L500.2500 #### [facility] [address] [place], [address] URINALYSIS, COMPLETE Collected: 01/19/2018 Status: F Source: GROT[place] 5:00 PM [facility] [place] [facility] Order Comment: How was Urine Obtained? [...] URINE SEEN Performed By: #### L400.0001 #### [facility] [address] [place], [place] [address]all [address] [place], [place], [address] PROGRESS Observed: 01/16/2018 Status: COMPLETED Source: CHANCELLOR 6:18 PM [facility] REPOSITORY O ID: [id number] Author: Hari Urbina Service: (none) Author Type: [...] and confirmation with both the patient and customer support representative. Under sterile technique following verbal consent the [...] MD PROGRESS Observed: 12/25/2017 Status: COMPLETED Source: CHANCELLOR 10:43 AM [facility] REPOSITORY HNO ID: [id number] Author: Guanaco Panchal (Pa) Service: (none) Author Type: Physician Oxygen Equipment Technician Type: Progress Notes Filed: 12/25/2017 10:46 AM [...] and confirmation with both the patient and customer support representative. Under sterile technique following verbal consent the [...] PA-C CNOV Observed: 12/25/2017 Status: COMPLETED Source: CHANCELLOR 10:00 AM [facility] REPOSITORY Office Visit (ORMDNA) ABBI SHOOK ([id number]) 1950 F Date Time Provider Department 12/25/17 10:00 AM GUANACO PANCHAL (PA)NA During your visit today, we recorded the [...] and confirmation with both the patient and customer support representative. Under sterile technique following verbal consent the [...] FOR* Visit Notes: >> Hilda Song Ma marvin Dec 25, 2017 10:06 AM Status: Signed Patient presents with: Right Knee Pain: Cortisone Injection Prescriptions ordered this encounter Disp Refills Start End CAM GUERO INJECTION BUILDER 12/25/2017 12/25/2017 Class: Suppress Questions Route: [facility] Encounter Status:Closed by GUANACO PANCHAL PA-C on 12/25/17 CNOV Observed: 12/18/2017 Status: COMPLETED Source: CHANCELLOR 1:00 PM [facility] [place] REPOSITORY Office Visit (ORMDNA) HOLGERABBI Anni ([id number]) 1950 F Date Time Provider Department 12/18/17 1:00 PM HARI URBINA During your visit today, we recorded the following information about you: Weight Height 100.2 kg 1.575 m Carmen Medrano Ken 12/18/2017 1:05 PM Signed Patient presents with: Bilateral Knee Pain Carmen Medrano Ken 12/18/2017 1:05 PM Signed CONSULT ORTHOPAEDIC: KNEE PRIMARY CARE PHYSICIAN: Scott Mendez MD REFERRING PROVIDER: Hari Urbina MD [address] [place] [address] ASSESSMENT AND PLAN Impression: Left Knee Moderate [...] interfering with activities which include gardening, doing order entry specialist, walking, rising from a sitting position, standing [...] Laterality Date - COLONOSCOP W/ OR W/O [facility] SPEC 2014 Colonoscopy - EXCIS TENDON SHEATH LOKESH CLEMENTS/FINGR Left 2013 base of left 5th finger [...] GARGLE MOUTH WITH WATER AFTER EACH USE. Aaszm-JG4-VYG-WAY-XR4-Jxe-Astx (KRILL OIL) 1000-130(40-80) mg cap Take by [...] and confirmation with both the patient and customer support representative. Under sterile technique following verbal consent the [...] Hari Urbina MD Referring Provider: HARI URBINA [[id number]] Allergies As of Date: 12/18/2017 Noted Allergy [...] BUILDER 01/16/2018 12/18/2017 Class: Suppress Questions Route: [facility] Encounter Status:Closed by HARI URBINA MD on 01/16/18 PROGRESS Observed: 12/18/2017 Status: COMPLETED Source: CHANCE[place]OR 12:57 PM [facility] RE[facility] HNO ID: [id number] Author: Carmen Medrano Ma Service: (none) Author Type: (none) Type: Progress Notes Filed: 01/16/2018 6:23 PM Note Text: CONSULT ORTHOPAEDIC: KNEE PRIMARY CARE PHYSICIAN: Scott Mendez MD REFERRING PROVIDER: Hari Urbina MD [address] [address] ASSESSMENT AND PLAN Impression: Left Knee Moderate [...] interfering with activities which include gardening, doing order entry specialist, walking, rising from a sitting position, standing [...] Laterality Date - COLONOSCOP W/ OR W/O [facility] SPEC 2014 Colonoscopy - EXCIS TENDON SHEATH [...] GARGLE MOUTH WITH WATER AFTER EACH USE. Rahvl-DN2-NFM-HWU-YT2-Xnw-Astx (KRILL OIL) 1000-130(40-80) mg cap Take by [...] PM PROGRESS Observed: 12/18/2017 Status: COMPLETED Source: CHANCELLOR 12:38 PM [facility] REPOSITORY HNO ID: [id number] Author: Henrietta (Ct) DAYNA Escobar Service: (none) Author Type: Clinical Pearl Glue Drier Type: Progress Notes Filed: 12/18/2017 12:38 PM Note Text: NAME:Abbi Shook DATE: December 18, 2017 CCF#: [id number] Pelvis X-Ray and Lower Extremity X-Ray(s): Knee, AP / Lat / Merchant Bilateral and Wt. Bearing COMPLETED TECH ID SIGN: HENRIETTA ESCOBAR XR KNEE 3V AP/LAT/BRIAN Observed: 12/18/2017 Status: F Source: [facility] 12:33 PM [facility] REPOSITORY * * *Final Report* * * DATE OF EXAM: Dec 18 2017 12:33PM BREE 5635 - XR KNEE 3V AP/LAT/BRIAN JESSICA / PROCEDURE REASON: M56-Rdku, unspecified * * * * Physician Interpretation [...] as discussed under Results portion of report.. Camouflage Assembler: SHILPA Transcribe Date/Time: Dec 18 2017 2:45P Dictated by : MARSHALL ELI DO This examination was interpreted and the report reviewed and electronically signed by: MARSHALL ELI DO on Dec 18 2017 2:45PM EST [id number] XR PELVIS 1V AP Observed: 12/18/2017 Status: F Source: CHANCELLOR 12:32 PM CLINIC OTHER CAMPUS REPOSITORY * * *Final Report* * * DATE OF EXAM: Dec 18 2017 12:32PM MDO 5239 - XR PELVIS 1V AP / PROCEDURE REASON: A52-Kzit, unspecified * * * * Physician Interpretation [...] seen. IMPRESSION: Stable bilateral total hip arthroplasties. Camouflage Assembler: SHILPA Transcribe Date/Time: Dec 18 2017 2:44P Dictated by : MARSHALL ELI DO This examination was interpreted and the report reviewed and electronically signed by: MARSHALL ELI DO on Dec 18 2017 2:45PM EST [id number] DOWNTIME REPORT Observed: 12/06/2017 Status: F Source: [place] 1:53 PM [facility] [place] [facility] Medical Records Department [address] [place] [address] Downtime Report MR#: [id number] Acct: [id number] Name: ABBI SHOOK Anni Rep #: [id number] : 1950 67 From: Maurilio Castellanos PCP: Scott Mendez MD Status: REG CLI This patient was seen during an EMR downtime November 19, 2017 - November 26, 2017. This patient may have a combination of paper and electronic documentation or all paper documentation. All documentation is viewable within the e-chart portion of [facility] for each patient visit. COMPREHENSIVE METABOLIC Collected: 11/20/2017 Status: F Source: BILL GARNICA 12:10 PM [facility] [place] [facility] Order Comment: Order Date: 07/30/17 Order Info: 0786-1 - CMP Order Info: [id number] - LIPID Order Info: 3016-3 - TSH [...] By: #### L500.4050, L500.4100, L501.9520, L506.1000 #### [facility] [address] [place], [place], [address] LIPID PROFILE Collected: 11/20/2017 Status: F Source: BILL 12:10 PM [facility] [place] [facility] Order Comment: Order Date: 07/30/17 Order Info: 0786-1 - CMP Order Info: [id number] - LIPID Order Info: 3016-3 - TSH [...] By: #### L500.4050, L500.4100, L501.9520, L506.1000 #### [facility] [address] [place], [place], [address] THYROID STIM HORMONE Collected: 11/20/2017 Status: F Source: BILL (TSH) 12:10 PM [facility] [place] [facility] Order Comment: Order Date: 07/30/17 Order Info: 0786-1 - CMP Order Info: [id number] - LIPID Order Info: 3016-3 - TSH RESULT(S) PREVIOUSLY REPORTED ON MANUAL REQUISITION DURING DOWNTIME. TYPE CODE TESTS RESULT OUT OF RANGE REFERENCE UNITS LAB L501.9520 0.358-3.74 uIU/mL Normal TSH 3.27 Performed By: #### L500.4050, L500.4100, L501.9520, L506.1000 #### [facility] [address] [place], [address] VITAMIN D,25 HYDROXY Collected: 11/20/2017 Status: F Source: [place] 12:10 PM [facility] [place] [facility] Order Comment: Order Date: 07/30/17 Order Info: 40534-4 - VITD25 TYPE CODE TESTS RESULT OUT [...] By: #### L500.4050, L500.4100, L501.9520, L506.1000 #### [facility] [address] [place], [address] HEMOGLOBIN A1C Collected: 11/20/2017 Status: F Source: [place] 12:10 PM [facility] [place] [facility] Order Comment: RESULT(S) PREVIOUSLY REPORTED ON MANUAL REQUISITION DURING DOWNTIME. TYPE CODE TESTS RESULT OUT OF RANGE REFERENCE UNITS LAB L501.9985 4.2-6.3 % High HGB A1C 9.9 Performed By: #### L501.9985 #### [facility] [address] [place], [address] PULMONARY VISIT REPORT Observed: 09/14/2017 Status: F Source: GROT[place] 6:14 AM [facility] [place] [facility] [place] [address] [place] [address] OFFICE VISIT Date of Service: 09/13/17 MR#: [id number] Acct: [id number] Name: ABBI SHOOK Rep #: [id number] : 1950 Provider: Rohit Hughes MD Age/Sex: 67/F Location: [facility].PM[facility] Status: Signed Assessment AND Plan 1. Stage [...] Other Medications New: Follow Up 6 Months ([facility]) HPI 2 M FU: Chief [...] mg PO QHS 07/14/14 [History Confirmed 09/13/17] [place] 3 1,000 mg Softgel 1 cap PO DAILY 03/03/16 [History Confirmed 09/13/17] Tiotropium [place] [Spiriva] 1 inhaler INHALATION DAILY 03/03/16 [History [...] MAMM (CAD), Observed: 07/30/2017 Status: F Source: GROTON BIL 1:28 PM [facility] [place] [facility] Imaging Services [address] [place] [address] [address] [address] SCREENING MAMM (CAD), BILAT MR#: [id number] Acct: [id number] Name: ABBI SHOOK Rep #: [id number] : 1950 F 67 From: Jeyson Merritt MD PCP: Scott Mendez MD Status: REG CLI Study: SCREENING MAMM (CAD), BILAT Date of Exam: 07/30/17 Exam# [id number] Ordering Dr: Trang Dhillon NP-C MAMMOGRAPHY - BILATERAL DIAGNOSTIC REASON FOR EXAM: [...] Jeyson Merritt MD at 15:30 EST Tel [phone], Service support , CC: ERICK Dhillon; Scott Mendez MD Camouflage Assembler: Signed PULMONARY FUNCTION Observed: 07/14/2017 Status: F Source: [place] REPORT COMP 6:29 AM [facility] [place] [facility] Pulmonary Services/Neurology [address] [place] [address] MR#: [id number] Acct: [id number] Name: ABBI SHOOK Rep #: [id number] : 1950 67 From: Rohit Hughes MD Referring Dr: Rohit Hughes MD Status: REG CLI Ordering Dr: Date: Location: [facility] Sex: F C COMPLETE PULMONARY FUNCTION TEST INTERPRETATION Brief HPI: Patient is a 67 year old female, currently under the care of myself, who presents to [facility] for complete pulmonary function tests secondary to [...] MD Date Dictated: 07/14/17624 Date Transcribed: 07/14/17624 Camouflage Assembler: BOBBY Signed ALLERGIES ALLERGIES DATE TYPE / NAME / CODE REACTION SEVERITY SOURCE CODE 05/31/2018 Drug amlodipine Unknown Unknown [place] Allergy/41 besylate/[id number](R [id number] 05/31/2018 Drug Penicillins/[id number] Unknown Unknown [place] Allergy/41 6(RXNORM) Community [id number]([facility]) Repository 05/31/2018 Drug Sulfa (Sulfonamide Other - gi [place] Allergy/41 Antibiotics)/[id number] upset Community [id number]([facility](RXNORM) [facility]) Repository 05/31/2018 Drug losartan/[id number](R Unknown Unknown [place] Allergy/41 XNORM) Community [id number]([facility]) Repository 09/13/2017 Drug oxymetazoline Other - [place] Allergy/41 HCl/[id number](RXNORM nosebleed [id number] Repository 09/13/2017 Drug pseudoephedrine Other - [place] Allergy/41 sulfate/[id number](RX nosebleed Community 0790838([facility]) Repository 07/01/2010 DRUG NICKEL UNKNOWN [place] INGREDI/41 Clinic Other [id number]([facility]) Repository 02/01/2010 Drug PENICILLINS [place] Class/4195 Clinic Other [id number]([facility] [place] [facility]) Repository ENCOUNTERS ENCOUNTERS ADMIT/DISCHARGE ACCOUNT ADMITTING ENCOUNTER LOCATION SOURCE NUMBER CLASS 07/03/2018 [id number] Ambulatory [facility] ing:MTLAB Repository 05/31/2018/05/31/20 [id number] Emergency [address] ing:ED Repository 05/31/2018 [id number] Ambulatory [facility] ing:CVS Repository 05/30/2018 [id number] Ambulatory [facility] ing:MTRAD Repository 02/25/2018 [id number] Ambulatory BMSBuilding:[place] [facility] Repository 01/19/2018/01/20/20 [id number] Emergency [address] ing:ED Repository 12/25/2017/12/28/19 [id number] Ambulatory [address] Main [place] Repository 12/18/2017/01/18/20 [id number] Ambulatory [address] [place] Repository 12/18/2017/12/19/19 [id number] Ambulatory [address] Other [place] Repository 11/20/2017 [id number] Ambulatory [facility] ing:MFPLAB Repository 09/13/2017/09/14/19 [id number] Ambulatory BMSBuilding:B Bill 18 MS.[facility] Repository 07/30/2017 [id number] Ambulatory [facility] ing:BI Repository 07/13/2017 [id number] Ambulatory [facility] ing:PSN Repository PAYERS PAYERS ENCOUNTER GUARANTOR PAYER SUBSCRIBER SOURCE 07/03/2018 ABBI Hutton Primary Insurance:PATRICK [id number] [facility] Number: HOLGERDOB: [facility] MEBKLMGQEffective [id number] [facility], Date:4836-28-02QM [place]OX [place]ository [place] [address]Cru: [id number] [place] [address]WP: [phone] 07/03/2018 Secondary NOT GIVENUNK [place] Insurance:SELF PAY Community INSURANCEPolicy Number: Hospital Effective Repository Date:2018-07-03 05/31/2018 ABBI Hutton Primary Insurance:AETNA ABBI C Bill [id number] MCRPolicy Number: PARKERDOB: Community ALEYDA MEBKLMGQEffective [id number] [facility], Date:4064-27-79XI [address]OX [place]ository [place] [address]Htm: [id number] [address]NF: [phone] 05/31/2018 Secondary NOT GIVENUNK [place] Insurance:SELF PAY Community INSURANCEPolicy Number: Hospital Effective Repository Date:2018-05-31 05/31/2018 ABBI C Primary Insurance:AETNA ABBI C Bill [id number] MCRPolicy Number: PARKERDOB: Community ALEYDA MEBKLMGQEffective [id number] [facility], Date:5164-03-71RY BOX [place]ository [place] [address]Bkk: [id number], [place] ) [phone]: [phone] 05/31/2018 Secondary NOT GIVENUNK [place] Insurance:SELF PAY Community INSURANCEPolicy Number: Hospital Effective Repository Date:2018-05-31 05/30/2018 ABBI Hutton Primary Insurance:AETNA ABBI C Bill [id number] MCRPolicy Number: PARKERDOB: Community ALEYDA BKLMGQEffective [id number] [facility], Date:8291-36-42JF [place]OX [place] [address]Awa: [id number], [place] ) [phone]: [phone] 05/30/2018 Secondary NOT GIVENUNK Bill Insurance:SELF PAY Community INSURANCEPolicy Number: Hospital Effective Repository Date:2018-05-30 02/25/2018 ABBI Hutton Primary Insurance:AETNA ABBI C [place] [id number] MCRPolicy Number: PARKERDOB: Community ALEYDA MEBKLMGQEffective [id number] [facility], Date:2905-04-54LT [place]OX [place]ository [place] [address]Cmx: [id number] [place] [phone]: [phone] 02/25/2018 Secondary ABBI C Bill Insurance:MEDICARE PART PARKERDOB: Community A BPolicy Number: [id number] Hospital [id number] Repository Date:2017-09-13 02/25/2018 Tertiary Insurance:SELF NOT GIVENUNK Bill PAY INSURANCEPolicy Community Number: Effective Hospital Date:2018-02-15 Repository 01/19/2018 ABBI C Primary Insurance:AETNA ABBI C [place] [id number] MCRPolicy Number: PARKERDOB: Community ALEYDA MEBKLMGQEffective [id number] [facility], Date:2719-26-18NC BOX [place]ository [place] [address]Xfn: [id number] [place] [address]MJ: [phone] 01/19/2018 Secondary NOT GIVENUNK Bill Insurance:SELF PAY Community INSURANCEPolicy Number: Hospital Effective Repository Date:2018-01-19 11/20/2017 ABBI C Primary Insurance:AETNA ABBI C [place] [id number] MCRPolicy Number: PARKERDOB: Community ALEYDA BKLMGQEffective [id number] [facility], Date:2845-67-75UG [place]OX [place]ository [place] [address]Fqx: [id number] [place] [phone]: [phone] ([phone] 11/20/2017 Secondary ABBI C Bill Insurance:MEDICARE PART PARKERDOB: Community A BPolicy Number: [id number] Hospital [id number] Repository Date:2017-11-20 11/20/2017 Tertiary Insurance:SELF NOT GIVENUNK Bill PAY INSURANCEPolicy Community Number: Effective Hospital Date:2017-11-20 Repository 09/13/2017 ABBI C Primary Insurance:AETNA ABBI C [place] [id number] MCRPolicy Number: PARKERDOB: Community ALEYDA MEBKLMGQEffective [id number] [facility], Date:4309-54-69GX [place]OX [place]ository [place] [address]Ehm: [id number] [place] [address]WP: [phone] 09/13/2017 Secondary ABBI C [place] Insurance:MEDICARE PART PARKERDOB: Community A BPolicy Number: [id number] Hospital [id number] Repository Date:2017-06-22 09/13/2017 Tertiary Insurance:SELF NOT GIVENUNK Bill PAY INSURANCEPolicy Community Number: Effective Hospital Date:2017-09-11 Repository 07/30/2017 ABBI C Primary Insurance:AETNA ABBI C [place] [id number] MCRPolicy Number: PARKERDOB: Community ALEYDA BKLMGQEffective [id number] [facility], Date:6857-13-63TW [place]OX [place]ository [place] [address]Xuv: [id number] [place] [address]WP: [phone] 07/30/2017 Secondary NOT GIVENUNK [place] Insurance:SELF PAY Community INSURANCEPolicy Number: Hospital Effective Repository Date:2017-07-05 07/13/2017 ABBI C Primary Insurance:AETNA ABBI C [place] [id number] MCRPolicy Number: PARKERDOB: Community ALEYDA BKLMGQEffective [id number] [facility], Date:3421-78-47EO BOX [place]ository [place] [address]Otc: [id number] [phone]: [phone] 07/13/2017 Secondary NOT GIVENUNK Bill Insurance:SELF PAY Community INSURANCEPolicy Number: Hospital Effective Repository Date:2017-06-22
== END ==
PROVIDERS: Family Provider Family Medicine; PCP Family Medicine; Referring Provider Family Medicine; Visit Provider Family Medicine
DX: E11.9 Type 2 diabetes mellitus without complications (principal)
CPT/HCPCS: 36415; 80048; 80061

== ENCOUNTER → 2019-01-07 11:24 | Outpatient (CLI) | payer MEDICARE, SELFPAY ==
[2019-01-07 14:30] LABS: ALB/GLOB Ratio 1.2 RATIO (0.9-2.4); AST(SGOT) 16 U/L (15-37); Alanine Aminotransfer ALT/SGPT 31 U/L (13-56); Albumin, Serum 3.5 g/dL (3.2-5.0); Alkaline Phosphatase 108 U/L (45-117); Anion Gap 5 (5-15); BUN 16 mg/dL (7-18); BUN/Creat Ratio 17.8 RATIO (10-20); Chloride 104 mmol/L (98-107); EST Glomerular Filtration Rate 66 mL/min (>60); Est Glom Filt Rate - Afr Amer 80 mL/min (>60); Glucose 150 mg/dL (74-106); Potassium 4.1 mmol/L (3.5-5.1); Protein, Total 6.5 g/dL (6.4-8.2); Sodium Level 136 mmol/L (136-145); Thyroid Stim Hormone (TSH) 2.89 uIU/mL (0.358-3.74)
[2019-06-02 14:58] VITALS: BMI 36.6
== END ==
PROVIDERS: Family Provider Family Medicine; PCP Family Medicine; Referring Provider Family Medicine; Visit Provider Family Medicine
DX: E11.9 Type 2 diabetes mellitus without complications (principal); E03.9 Hypothyroidism, unspecified
CPT/HCPCS: 36415; 80053; 84443

== ENCOUNTER → 2019-06-02 15:51 | Outpatient (CLI) | payer MEDICARE, SELFPAY ==
[2019-06-02 14:58] VITALS: BMI 36.6
== END ==
PROVIDERS: Family Provider Family Medicine; PCP Family Medicine; Referring Provider Nurse Practitioner Acute Care; Visit Provider Nurse Practitioner Acute Care
DX: J44.9 Chronic obstructive pulmonary disease, unspecified (principal)
CPT/HCPCS: 87633

== ENCOUNTER → 2019-07-09 11:12 | Outpatient (CLI) | payer MEDICARE, SELFPAY ==
[2019-06-02 14:58] VITALS: BMI 36.6
[2019-07-09 12:21] LABS: Hematocrit 38.6 % (37-47); Hemoglobin 12.3 g/dL (12.0-15.0); Mean Corp Hgb Conc 31.9 g/dL (32-36); Mean Corpuscular Hgb 30.1 pg (27.0-32.0); Mean Corpuscular Volume 94.4 fL (81-99); Mean Platelet Vol. 11.5 fl (6.2-12.0); Platelet Count 214 K/mm3 (150-450); RBC Distribution Width SD 48.5 fl (35.1-43.9); Red Blood Count 4.09 M/mm3 (4.2-5.4); White Blood Count 8.2 K/mm3 (4.4-11.0)
[2019-07-09 13:23] LABS: ALB/GLOB Ratio 0.9 RATIO (0.9-2.4); AST(SGOT) 16 U/L (15-37); Alanine Aminotransfer ALT/SGPT 27 U/L (13-56); Albumin, Serum 3.3 g/dL (3.2-5.0); Alkaline Phosphatase 99 U/L (45-117); Anion Gap 4 (5-15); BUN 19 mg/dL (7-18); BUN/Creat Ratio 21.8 RATIO (10-20); Calcium,Total 8.9 mg/dL (8.5-10.1); Chloride 101 mmol/L (98-107); Cholesterol 166 mg/dL (200); Creatinine, Serum 0.87 mg/dL (0.55-1.02); EST Glomerular Filtration Rate 69 mL/min (>60); Est Glom Filt Rate - Afr Amer 83 mL/min (>60); Globulin 3.6 g/dL (2.2-4.2); Glucose 139 mg/dL (74-106); High Density Lipoprotein 43 mg/dL; Potassium 4.3 mmol/L (3.5-5.1); Protein, Total 6.9 g/dL (6.4-8.2); Sodium Level 135 mmol/L (136-145); Thyroid Stim Hormone (TSH) 2.73 uIU/mL (0.358-3.74); Triglycerides 417 mg/dL
[2019-07-09 13:47] LABS: Vitamin D,25 Hydroxy 40.5 ng/mL (29.95-100.01)
== END ==
PROVIDERS: PCP Family Medicine; Referring Provider Family Medicine; Visit Provider Family Medicine
DX: J44.9 Chronic obstructive pulmonary disease, unspecified (principal); E11.9 Type 2 diabetes mellitus without complications; E55.9 Vitamin D deficiency, unspecified
CPT/HCPCS: 36415; 80053; 80061; 82306; 84443; 85027

== ENCOUNTER → 2020-01-06 12:09 | Outpatient (CLI) | payer MEDICARE, SELFPAY ==
[2019-06-02 14:58] VITALS: BMI 36.6
[2020-01-06 15:47] LABS: ALB/GLOB Ratio 1.1 RATIO (0.9-2.4); AST(SGOT) 19 U/L (15-37); Alanine Aminotransfer ALT/SGPT 24 U/L (13-56); Albumin, Serum 3.5 g/dL (3.2-5.0); Alkaline Phosphatase 114 U/L (45-117); Anion Gap 5 (5-15); BUN 15 mg/dL (7-18); BUN/Creat Ratio 18.5 RATIO (10-20); Chloride 105 mmol/L (98-107); Cholesterol 154 mg/dL (200); Creatinine, Serum 0.81 mg/dL (0.55-1.02); EST Glomerular Filtration Rate 74 mL/min (>60); Est Glom Filt Rate - Afr Amer 90 mL/min (>60); Globulin 3.3 g/dL (2.2-4.2); Glucose 147 mg/dL (74-106); High Density Lipoprotein 45 mg/dL; Potassium 4.2 mmol/L (3.5-5.1); Protein, Total 6.8 g/dL (6.4-8.2); Sodium Level 139 mmol/L (136-145); Triglycerides 302 mg/dL; Very Low Density Lipoprotein 60 mg/dL (5-40)
== END ==
PROVIDERS: PCP Family Medicine; Referring Provider Family Medicine; Visit Provider Family Medicine
DX: E11.9 Type 2 diabetes mellitus without complications (principal)
CPT/HCPCS: 36415; 80053; 80061

== ENCOUNTER → 2020-02-17 14:07 | Outpatient (CLI) | payer MEDICARE, SELFPAY ==
[2019-06-02 14:58] VITALS: BMI 36.6
--- NOTE | 2020-02-17 14:09 | RAD_ITS ---
STUDY: X-RAY - LEFT KNEE REASON FOR EXAM: Female, 69 years old. CHRONIC KNEE PAIN, WORSE RECENTLY TECHNIQUE: 4 view(s) of the knee. COMPARISON: None. FINDINGS: Normal visualized distal femur. Normal visualized proximal tibia and fibula. Normal proximal tibiofibular articulation. There is mild degenerative arthrosis of the medial femorotibial compartment. Normal lateral femorotibial compartment. Normal patellofemoral articulation. Superior and inferior patellar osteophytes. The soft tissue structures are unremarkable. RAD/Knee 4 or More Views IMPRESSION: Mild medial compartment osteoarthritis. Electronically Signed: Chico Kebede MD at 18:58 EDT Tel , Service support ,
== END ==
PROVIDERS: PCP Family Medicine; Referring Provider Family Medicine; Visit Provider Family Medicine
DX: M25.562 Pain in left knee (principal)
CPT/HCPCS: 73564

== ENCOUNTER → 2020-08-31 12:08 | Outpatient (CLI) | payer MEDICARE, SELFPAY ==
[2019-06-02 14:58] VITALS: BMI 36.6
[2020-08-31 15:54] LABS: Vitamin B12 298 pg/mL (211-911)
[2020-08-31 16:13] LABS: AST(SGOT) 27 U/L (15-37); Alanine Aminotransfer ALT/SGPT 33 U/L (13-56); Albumin, Serum 3.3 g/dL (3.2-5.0); Alkaline Phosphatase 126 U/L (45-117); Anion Gap 4 (5-15); BUN 15 mg/dL (7-18); BUN/Creat Ratio 17.3 RATIO (10-20); Calcium,Total 9.2 mg/dL (8.5-10.1); Chloride 101 mmol/L (98-107); Creatinine, Serum 0.87 mg/dL (0.55-1.02); EST Glomerular Filtration Rate 69 mL/min (>60); Est Glom Filt Rate - Afr Amer 83 mL/min (>60); Globulin 3.4 g/dL (2.2-4.2); Glucose 168 mg/dL (74-106); Potassium 4.1 mmol/L (3.5-5.1); Protein, Total 6.7 g/dL (6.4-8.2); Sodium Level 137 mmol/L (136-145); Thyroid Stim Hormone (TSH) 2.84 uIU/mL (0.358-3.74)
== END ==
PROVIDERS: PCP Family Medicine; Referring Provider Family Medicine; Visit Provider Family Medicine
DX: E11.65 Type 2 diabetes mellitus with hyperglycemia (principal)
CPT/HCPCS: 36415; 80053; 82607; 84443

== ENCOUNTER 2020-10-05 11:39 | Emergency (ER) | payer MEDICARE, SELFPAY ==
[2019-06-02 14:58] VITALS: BMI 36.6
[2020-10-05 11:41] VITALS: BP 205/83; PULSE 74; RESP 24; TEMP 35.8; O2SAT 98; BMI 40.2
[2020-10-05 11:58] VITALS: BP 157/70; PULSE 74; RESP 18; O2SAT 98
--- NOTE | 2020-10-05 12:10 | EKG12_ITS ---
Test Reason : Blood Pressure : / mmHG Vent. Rate : 067 BPM Atrial Rate : 067 BPM P-R Int : 168 ms QRS Dur : 084 ms QT Int : 396 ms P-R-T Axes : 059 005 044 degrees QTc Int : 418 ms Normal sinus rhythm Normal ECG Confirmed by KELY REDD, SUZIE ([id number]), food expeditor HANS GARCIA ([id number]) on 10/08/2020 7:59:20 AM Referred By: EVERARDO Confirmed By:GUNNER EDGE MD
--- NOTE | 2020-10-05 12:11 | CT_ITS ---
STUDY: CTA CHEST REASON FOR EXAM: Female, 70 years old. dyspnea high pretest probability RADIATION DOSAGE (If Supplied By Facility): CTDIvol = ( 13.85 ) mGy, DLP = ( 567.85 ) mGycm TECHNIQUE: The examination was performed with the intravenous administration of IV 100mL Isovue-370. Post-processing of the angiographic images was performed, with multiplanar reformation and 3D reconstruction. Individualized dose optimization techniques were used for this CT. COMPARISON: None. FINDINGS: Normal enhancement of the main pulmonary artery and right and left pulmonary arteries. Normal enhancement of the bilateral peripheral pulmonary arteries. There is no demonstrated pulmonary embolism. Normal thoracic aorta and visualized great vessels. There is no demonstrated aortic dissection. Normal heart and pericardium. Normal mediastinum. Normal hilar regions. Normal visualized trachea and bronchi. The lungs are well expanded. Normal pulmonary parenchyma. Normal pleura. Normal chest wall structures. Normal osseous structures. Diffusely decreased attenuation of the hepatic parenchyma consistent with fatty infiltration. CT/CTA Chest W/WO Contrast IMPRESSION: Normal CTA chest examination, without a demonstrated pulmonary embolism or arterial dissection. Fatty infiltration of the liver. Electronically Signed: Gabriele Alba MD at 13:51 EDT Tel , Service support ,
[2020-10-05 12:51] LABS: Absolute Lymphocyte Count 1.63 X10^3/uL (0.83-4.51); Absolute Neutrophil Count 4.2 X10^3/uL (2.0-7.7); Basophil# 0.05 X10^3/uL; Basophil% 0.8 % (0-1); Eosinophil# 0.09 X10^3/uL; Eosinophils% 1.4 % (0-5); Hematocrit 37.9 % (37-47); Hemoglobin 12.1 g/dL (12.0-15.0); Lymphocyte # 1.63 X10^3/ul (0.83-4.51); Lymphocyte % 25.1 % (19-41); Mean Corp Hgb Conc 31.9 g/dL (32-36); Mean Corpuscular Hgb 30.4 pg (27.0-32.0); Mean Corpuscular Volume 95.2 fL (81-99); Mean Platelet Vol. 11.2 fl (6.2-12.0); Monocyte# 0.46 X10^3/uL; Monocyte% 7.1 % (0-10); NRBC Flagged by Analyzer 0 % (0-5); Neutrophil # 4.19 X10^3/uL (2.7-7.7); Neutrophil % 64.5 % (47-70); Platelet Count 194 K/mm3 (150-450); RBC Distribution Width CV 13.3 % (11.6-14.6); Red Blood Count 3.98 M/mm3 (4.2-5.4); White Blood Count 6.5 K/mm3 (4.4-11.0)
[2020-10-05 13:12] LABS: BNP,B-Type NATRIURETIC PEPTIDE 24.7 pg/mL (0-100)
[2020-10-05 13:14] LABS: ALB/GLOB Ratio 0.9 RATIO (0.9-2.4); AST(SGOT) 21 U/L (15-37); Alanine Aminotransfer ALT/SGPT 33 U/L (13-56); Albumin, Serum 3.3 g/dL (3.2-5.0); Alkaline Phosphatase 119 U/L (45-117); Anion Gap 7 (5-15); BUN 17 mg/dL (7-18); BUN/Creat Ratio 18.8 RATIO (10-20); Calcium,Total 8.9 mg/dL (8.5-10.1); Chloride 100 mmol/L (98-107); Creatinine, Serum 0.91 mg/dL (0.55-1.02); EST Glomerular Filtration Rate 65 mL/min (>60); Est Glom Filt Rate - Afr Amer 79 mL/min (>60); Globulin 3.5 g/dL (2.2-4.2); Glucose 223 mg/dL (74-106); Protein, Total 6.8 g/dL (6.4-8.2); Sodium Level 135 mmol/L (136-145)
[2020-10-05 13:36] VITALS: BP 146/61; PULSE 69; RESP 20; TEMP 35.8; O2SAT 98
--- NOTE | 2020-10-05 14:15 | ED.DCSUM_ITS ---
History of Present Illness Chief Complaint: Shortness of Breath Informant: Patient Narrative: 70-year-old female presents with shortness of breath. Patient states that she has a history of COPD. She states that this is progressively gotten worse. She is seen her primary care physician several times for this. She is also seeing pulmonology (Dr. Hughes). She states that she got her Covid vaccinations and the last one was at the beginning of the month about 15 days ago. She states that she believes that it has made her substantially worse. Patient denies any fevers. She denies any change in cough. She denies any chest pain. She notes that about 2 months ago she made the change from Cymbalta to Wellbutrin. - Past Medical History (1) Morbid obesity due to excess calories Status: Chronic (2) Stage 1 mild COPD by GOLD classification Status: Chronic (3) Tobacco abuse Status: Chronic Past Medical History - Allergies and Home Meds Allergies/Adverse Reactions: Allergies Sulfa (Sulfonamide Antibiotics) Allergy (Mild, Verified 10/05/20 11:40) Other - gi upset amlodipine besylate [From Norvasc] Allergy (Verified 10/05/20 11:40) Unknown losartan [Losartan] Allergy (Verified 10/05/20 11:40) Unknown Penicillins Allergy (Verified 10/05/20 11:40) Unknown Primary Care Physician: Counseling,Center [GROUP OF PHYSICIANS] - (Call to arrange follow-up if you wish to follow-up with counseling/psychiatry) Tom Mendez MD [Primary Care Provider] - Keep Fay appointment Surgical History: noncontributory Smoking Status: Current every day smoker Drugs: None Review of Systems General: Denies: Chills, Fever, Sweats Eyes: Denies: Visual changes - bilaterally, Diplopia ENT: Denies: Rhinorrhea, Sore throat Cardiovascular: Denies: Chest pain, Palpitations Respiratory: Reports: Dyspnea, Cough. Denies: Dyspnea on exertion Gastrointestinal: Denies: Abdominal pain, Nausea, Vomiting, Diarrhea, Melena, Hematochezia Genitourinary: Denies: Dysuria, Hematuria, Frequency Musculoskeletal: Denies: Back pain, Extremity Pain Skin: Denies: Rash, Wounds Neurological: Denies: Headache, Weakness, Numbness Physical Exam Vital Signs/Narrative: Vital Signs Temp Pulse Resp BP Pulse Ox 10/05/20 13:36 96.5 F L 69 20 H 146/61 H 98 10/05/20 11:58 74 18 157/70 H 98 10/05/20 11:41 96.5 F L 74 24 H 205/83 H 98 Inital Vital Signs reviewed: Yes General: Well nourished, Well developed, No Acute Distress Head: Normocephalic, Atraumatic Eyes: Perrl, EOMI ENT: Moist mucous membranes, No rhinorrhea Neck: Supple, Nontender Cardiovascular: Regular rate, Regular rhythm, No murmurs Respiratory: No distress, Chest nontender, Wheezing - faint end expiratory Abdomen: Soft, Nontender, Nondistended, Normal bowel sounds Back: Nontender, Normal Inspection Extremities: Nontender, No edema Skin: Normal color, No rash Neurological: Alert, Oriented x3, Cranial nerves II-XII grossly intact, Normal Strength, Normal Sensation Psychological: Normal affect, Normal Mood Diagnostic/Tx/Re-eval Clinical Impression(s) from Imaging Studies Chest CTA 10/05/20 12:11 IMPRESSION: Normal CTA chest examination, without a demonstrated pulmonary embolism or arterial dissection. Fatty infiltration of the liver. Electronically Signed: Gabriele Alba MD at 13:51 EDT Tel , Service support , Laboratory Last Values WBC 6.5 K/mm3 (4.4-11.0) 10/05/20 12:25 RBC 3.98 M/mm3 (4.2-5.4) L 10/05/20 12:25 Hgb 12.1 g/dL (12.0-15.0) 10/05/20 12:25 Hct 37.9 % (37-47) 10/05/20 12:25 MCV 95.2 fL (81-99) 10/05/20 12:25 MCH 30.4 pg (27.0-32.0) 10/05/20 12:25 MCHC 31.9 g/dL (32-36) L 10/05/20 12:25 RDW Std Deviation 47.0 fl (35.1-43.9) H 10/05/20 12:25 RDW Coeff of Lay 13.3 % (11.6-14.6) 10/05/20 12:25 Plt Count 194 K/mm3 (150-450) 10/05/20 12:25 MPV 11.2 fl (6.2-12.0) 10/05/20 12:25 Immature Gran % (Auto) 1.100 % (0.0-0.9) H 10/05/20 12:25 Neut % (Auto) 64.5 % (47-70) 10/05/20 12:25 Lymph % (Auto) 25.1 % (19-41) 10/05/20 12:25 [place] % (Auto) 7.1 % (0-10) 10/05/20 12:25 Eos % (Auto) 1.4 % (0-5) 10/05/20 12:25 Baso % (Auto) 0.8 % (0-1) 10/05/20 12:25 Absolute Neuts (auto) 4.2 X10^3/uL (2.0-7.7) 10/05/20 12:25 Absolute Lymphs (auto) 1.63 X10^3/uL (0.83-4.51) 10/05/20 12:25 Nucleated RBC % 0 % (0-5) 10/05/20 12:25 Sodium 135 mmol/L (136-145) L 10/05/20 12:25 Potassium 4.0 mmol/L (3.5-5.1) 10/05/20 12:25 Chloride 100 mmol/L (98-107) 10/05/20 12:25 Carbon Dioxide 28.0 mmol/L (21.0-32.0) 10/05/20 12:25 Anion Gap 7 (5-15) 10/05/20 12:25 BUN 17 mg/dL (7-18) 10/05/20 12:25 Creatinine 0.91 mg/dL (0.55-1.02) 10/05/20 12:25 Estim Creat Clear Calc 45.50 ml/min 10/05/20 12:25 Est GFR (MDRD) Af Amer 79 mL/min (>60) 10/05/20 12:25 Est GFR (MDRD) Non-Af 65 mL/min (>60) 10/05/20 12:25 BUN/Creatinine Ratio 18.8 RATIO (10-20) 10/05/20 12:25 Glucose 223 mg/dL (74-106) H 10/05/20 12:25 Calcium 8.9 mg/dL (8.5-10.1) 10/05/20 12:25 Total Bilirubin 0.40 mg/dL (0.20-1.00) 10/05/20 12:25 AST 21 U/L (15-37) 10/05/20 12:25 ALT 33 U/L (13-56) 10/05/20 12:25 Alkaline Phosphatase 119 U/L (45-117) H 10/05/20 12:25 Troponin I < 0.015 ng/mL (<0.045) 10/05/20 12:25 B-Natriuretic Peptide 24.7 pg/mL (0-100) 10/05/20 12:25 Total Protein 6.8 g/dL (6.4-8.2) 10/05/20 12:25 Albumin 3.3 g/dL (3.2-5.0) 10/05/20 12:25 Globulin 3.5 g/dL (2.2-4.2) 10/05/20 12:25 Albumin/Globulin Ratio 0.9 RATIO (0.9-2.4) 10/05/20 12:25 - EKG Initial EKG Interpretation: Sinus Rhythm - EKG demonstrates a normal sinus rhythm at a rate of 67 with no concerning features of ACS or ectopy. - Medical Decision Making Repeat examination the patient appears well. She is conversing with family. Basic blood work is negative and CTA of the chest shows no pulmonary embolism effusion or infiltrates. I do wonder if some component of this may be anxiety driven. Perhaps Wellbutrin is not working with her she needs a second agent. I talked to her about following up with primary care and she has appointment next week I will reach out to them. We talked about the possibility of seeing the counseling center. Also talked that she at some point will need to see pulmonology again. ED Disposition - Plan for ED Patient: Disposition: Home or Assisted Living Diagnosis: Dyspnea, Stage 1 mild COPD by GOLD classification Instructions: ED Dyspnea Referrals: Tom Mendez MD [Primary Care Provider] - Keep Fay appointment Counseling,Center [GROUP OF PHYSICIANS] - (Call to arrange follow-up if you wish to follow-up with counseling/psychiatry)
[2020-10-05 14:48] VITALS: BP 131/67; PULSE 71
== END 2020-10-05 14:49 | disposition home or self-care (01) ==
PROVIDERS: Emergency Provider Emergency Medicine; PCP Family Medicine
DX: J44.9 Chronic obstructive pulmonary disease, unspecified (principal); F17.200 Nicotine dependence, unspecified, uncomplicated; E66.01 Morbid (severe) obesity due to excess calories; Z68.41 Body mass index [BMI] 40.0-44.9, adult
CPT/HCPCS: 71275; 80053; 83880; 84484; 85025; 93005; 99284; Q9967; A4216

== ENCOUNTER → 2020-10-11 15:36 | Outpatient (CLI) | payer MEDICARE, SELFPAY ==
[2020-10-05 11:41] VITALS: BMI 40.2
[2020-10-11 18:04] LABS: Hematocrit 38.4 % (37-47); Hemoglobin 12.5 g/dL (12.0-15.0); Mean Corp Hgb Conc 32.6 g/dL (32-36); Mean Corpuscular Hgb 31.3 pg (27.0-32.0); Mean Corpuscular Volume 96.2 fL (81-99); Mean Platelet Vol. 11.7 fl (6.2-12.0); Platelet Count 234 K/mm3 (150-450); RBC Distribution Width CV 13.3 % (11.6-14.6); RBC Distribution Width SD 47.4 fl (35.1-43.9); Red Blood Count 3.99 M/mm3 (4.2-5.4); White Blood Count 7.6 K/mm3 (4.4-11.0)
== END ==
PROVIDERS: PCP Family Medicine; Visit Provider Family Medicine
DX: R60.9 Edema, unspecified (principal)
CPT/HCPCS: 36415; 85027

== ENCOUNTER → 2020-11-03 12:50 | Outpatient (CLI) | payer MEDICARE, SELFPAY ==
[2020-10-05 11:41] VITALS: BMI 40.2
--- NOTE | 2020-11-03 12:54 | ECHOCS_ITS ---
Reason For Study: Other general symptoms and signs Procedure This was a 2D Doppler, Color Flow transthoracic echocardiogram. The study was technically difficult. Contrast injection was performed. Exam performed in department. Left Ventricle Normal LV size. Moderate concentric left ventricular hypertrophy. Left ventricular systolic function is normal. The estimated ejection fraction is 55 %. No regional wall motion abnormalities noted. Right Ventricle Normal RV size. Normal systolic function. Atria The left atrium is moderately enlarged. Normal right atrium. Mitral Valve Mitral valve not well visualized. Tricuspid Valve Normal tricuspid valve. Aortic Valve The aortic valve is not well visualized. Pulmonic Valve Normal pulmonic valve. Great Vessels Normal aortic root. The pulmonary artery is normal size. Normal inferior vena cava. Pericardium/Pleural No pericardial effusion. Medication 22 gauge I.V. with prn adaptor inserted into right arm. Diluted definity 4ml given slow IV push to enhance endocardial definition. MMode/2D Measurements & Calculations LVIDd: 3.9 cm IVSd: 1.9 cm LA dimension: 4.6 cm LVIDs: 2.6 cm LVPWd: 1.4 cm FS: 34.4 % LAV(MOD-bp): 83.5 ml LA A4 area: 25.1 cm2 RA A4 area: 17.7 cm2 LAV(MOD-bp) Indexed: 42.4 ml/m2 LAV(MOD-sp2): 81.8 ml LAV(MOD-sp4): 80.4 ml Time Measurements MV dec time: 0.24 sec Doppler Measurements & Calculations MV E max alfredo: 98.0 cm/sec Lat Peak E' Alfredo: 6.5 cm/sec Med Peak E' Alfredo: 10.6 cm/sec MV A max alfredo: 92.3 cm/sec E/E' lat: 15.2 E/E' med: 9.3 MV E/A: 1.1 MV V2 max: 107.9 cm/sec MV P1/2t max alfredo: 108.8 cm/sec Ao V2 max: 123.6 cm/sec MV max P.7 mmHg MV P1/2t: 109.8 msec Ao max P.1 mmHg MV V2 mean: 71.0 cm/sec MV dec slope: 290.3 cm/sec2 MV mean P.3 mmHg MV V2 VTI: 37.0 cm MVA(P1/2t): 2.0 cm2 LV V1 max: 93.6 cm/sec PA V2 max: 72.2 cm/sec LV V1 max P.5 mmHg ECHO/Echo Complete W/ Contrast Interpretation Summary Normal LV size. Left ventricular systolic function is normal. The estimated ejection fraction is 55 %. Moderate concentric left ventricular hypertrophy. The left atrium is moderately enlarged. Contrast injection was performed. Ordering Physician: Tom Mendez Referring Physician: Tom Mendez Performed By: Julian Tillman RCS
== END ==
PROVIDERS: PCP Family Medicine; Referring Provider Family Medicine; Visit Provider Family Medicine
DX: R60.9 Edema, unspecified (principal)
CPT/HCPCS: 93306; Q9957; A4216; C8929

== ENCOUNTER → 2020-12-13 14:05 | Outpatient (CLI) | payer MEDICARE, SELFPAY ==
[2020-12-13 16:06] LABS: BNP,B-Type NATRIURETIC PEPTIDE 26.4 pg/mL (0-100)
[2020-12-13 16:07] LABS: AST(SGOT) 17 U/L (15-37); Alanine Aminotransfer ALT/SGPT 25 U/L (13-56); Albumin, Serum 3.3 g/dL (3.2-5.0); Alkaline Phosphatase 118 U/L (45-117); Anion Gap 5 (5-15); BUN 13 mg/dL (7-18); BUN/Creat Ratio 14.6 RATIO (10-20); Calcium,Total 8.9 mg/dL (8.5-10.1); Chloride 102 mmol/L (98-107); Cholesterol 167 mg/dL (200); Creatinine, Serum 0.89 mg/dL (0.55-1.02); EST Glomerular Filtration Rate 66 mL/min (>60); Est Glom Filt Rate - Afr Amer 80 mL/min (>60); Globulin 3.4 g/dL (2.2-4.2); Glucose 133 mg/dL (74-106); High Density Lipoprotein 50 mg/dL; Potassium 4.1 mmol/L (3.5-5.1); Protein, Total 6.7 g/dL (6.4-8.2); Sodium Level 138 mmol/L (136-145); Triglycerides 240 mg/dL; Very Low Density Lipoprotein 48 mg/dL (5-40)
[2020-12-13 16:48] LABS: Vitamin B12 > 2000 pg/mL (211-911)
== END ==
PROVIDERS: PCP Family Medicine; Visit Provider Family Medicine
DX: E11.69 Type 2 diabetes mellitus with other specified complication (principal); R60.0 Localized edema; E53.8 Deficiency of other specified B group vitamins
CPT/HCPCS: 36415; 80053; 80061; 82607; 83880

== ENCOUNTER → 2020-12-15 12:47 | Outpatient (CLI) | payer MEDICARE, SELFPAY ==
--- NOTE | 2020-12-16 10:05 | PFT ---
INTRODUCTION: The patient is a 70-year-old female that presents for pulmonary function studies secondary to a diagnosis of dyspnea. Respiratory therapy reports good patient effort. Bronchodilators were used during testing. INTERPRETATION: Forced expiration spirometry demonstrates the presence of a severe large airways obstructive ventilatory defect. There was a significant response to aerosolized bronchodilators. Spirograms are of good quality and plateau gradually indicating slow emptying of the lungs. Body plethysmography was performed and reveals lung volumes to be within normal limits. Diffusing capacity by single breath CO is reduced at 62% of predicted. When compared to prior pulmonary function studies from June 2017, there has been a 35% reduction in FEV1. IMPRESSION: Partially reversible severe large airways obstructive ventilatory defect with mild reduction in diffusing capacity. There has been a significant decrease in the patient's FEV1 since 2018, as noted above.
== END ==
PROVIDERS: PCP Family Medicine; Referring Provider Family Medicine; Visit Provider Family Medicine
DX: R06.00 Dyspnea, unspecified (principal)
CPT/HCPCS: 94060; 94726; 94729

== ENCOUNTER → 2021-03-14 14:21 | Outpatient (CLI) | payer MEDICARE, SELFPAY ==
--- NOTE | 2021-03-14 14:23 | RAD_ITS ---
STUDY: X-RAY - LEFT KNEE REASON FOR EXAM: Female, 71 years old. OA TECHNIQUE: 4 radiographic view(s) of the left knee. COMPARISON: 02/17/2020 FINDINGS: Normal visualized distal femur. Normal visualized proximal tibia and fibula. Normal proximal tibiofibular articulation. There is mild degenerative arthrosis of the medial femorotibial compartment. There is mild degenerative arthrosis of the lateral femorotibial compartment. There is mild degenerative arthrosis of the patellofemoral articulation. There is a soft tissue prominence in the suprapatellar region suggesting a small volume joint effusion. Popliteal fossa calcification. RAD/Knee 4 or More Views IMPRESSION: Progression of osteoarthritis compared to 02/17/2020 Electronically Signed: Syed Blanc MD at 8:01 EDT Tel , Service support ,
== END ==
PROVIDERS: PCP Family Medicine; Referring Provider Family Medicine; Visit Provider Family Medicine
DX: M17.12 Unilateral primary osteoarthritis, left knee (principal)
CPT/HCPCS: 73564

== ENCOUNTER 2021-08-12 06:31 | Day surgery (SDC) | payer MEDICARE, SELFPAY ==
[2021-08-12 07:05] VITALS: BP 114/45; PULSE 98; RESP 16; TEMP 36.7; O2SAT 92; BMI 43.3
[2021-08-12] MEDS: Lactated Ringers 1,000 ML 15 ML IV (07:11)
--- NOTE | 2021-08-12 07:27 | HP.PCM_ITS ---
History and Physical Date of Admission: 08/12/21 Intake Vital Signs 07/29/21 09:38 Height 5 ft 1 in Weight: 235 lb BMI 44.4 BP 118/74 Blood Pressure Location Rt brachial Position Sitting Respiration 18 Intake Visit Reasons: CSCOPE, RECTAL BLEEDING Chief Complaint: c-scope Nib Adjuster Required: No Is patient in pain?: No Allergies Sulfa (Sulfonamide Antibiotics) Allergy (Mild, Verified 07/29/21 09:34) Other - gi upset amlodipine besylate [From Norvasc] Allergy (Verified 07/29/21 09:34) Unknown losartan [Losartan] Allergy (Verified 07/29/21 09:34) Unknown Penicillins Allergy (Verified 07/29/21 09:34) Unknown Medications levothyroxine 50 mcg PO DAILY 07/14/14 [History Confirmed 07/29/21] metoprolol succinate 100 mg PO DAILY 07/14/14 [History Confirmed 07/29/21] rosuvastatin 10 mg PO QHS 07/14/14 [History Confirmed 07/29/21] [place] 3 1,000 mg Softgel 1 cap PO DAILY 03/03/16 [History Confirmed 07/29/21] cholecalciferol (vitamin D3) 2,000 unit PO DAILY 04/24/17 [History Confirmed 07/29/21] metformin 500 mg PO BID 04/24/17 [History Confirmed 07/29/21] lansoprazole 30 mg capsule,delayed release 30 mg PO QHS 07/05/17 [History Confirmed 07/29/21] lisinopril 5 mg tablet 40 mg PO DAILY tab 09/13/17 [History Confirmed 07/29/21] tiotropium 2.5 mcg-olodaterol 2.5 mcg/actuation mist for inhalation 2 puff INHALATION Q24H #4 g 09/20/18 [Rx Confirmed 07/29/21] fluticasone propionate 50 mcg/actuation nasal spray,suspension 2 spray INTRANASAL DAILY #16 g 06/02/19 [Rx Confirmed 07/29/21] albuterol sulfate 1 puff INHALATION Q4H PRN PRN 10/05/20 [History Confirmed 07/29/21] bupropion HCl 150 mg PO DAILY 10/05/20 [History Confirmed 07/29/21] doxazosin 2 mg tablet 2 mg PO DAILY 07/29/21 [History Confirmed 07/29/21] dulaglutide 1.5 mg/0.5 mL subcutaneous pen injector 1.5 mg SUBCUT QWEEK 07/29/21 [History Confirmed 07/29/21] duloxetine 30 mg capsule,delayed release 30 mg PO DAILY 07/29/21 [History Confirmed 07/29/21] [facility] Medical History (Updated 07/29/21 @ 09:[address] Maxi Beltrán MD) Bronchitis Diabetes HTN (hypertension) Hyperlipidemia GUZMAN (obstructive sleep apnea) SOB (shortness of breath) Surgical History H/O bilateral hip replacements H/O hernia repair H/O: hysterectomy History of back surgery Family History Grandfather Diabetes Social History Smoking Status: Current every day smoker tobacco type: cigarettes Tobacco: How many years used: 40 alcohol intake: never details: social substance use type: does not use caffeine: Yes what type of physical activity do you participate in: none seatbelt use: always do you feel safe at home: Yes additional social history: -retired HPI HPI HPI: KRISTIAN WREN, is a 71 F who presents to the office today for rectal bleeding. Patient reports that she has been having some bright red blood per rectum when wiping even when she does not have bowel movements. She also had a perirectal abscess recently which she believes may be the cause of the bleeding. She had her last colonoscopy in 2013 and had tubular adenoma. ROS General General: Yes weight change and fatigue; No appetite, colon cancer, breast cancer or weakness HEENT HEENT: No difficulty swallowing, eye injury, eye surgery, swollen glands or hoarseness Endo Endocrine: Yes diabetes mellitus; No thyroid disease, thyroid cancer, Hair loss, heat intolerance or cold intolerance Skin Skin: No rash or changing moles Breast Breast: No left breast lump, right breast lump, nipple discharge, breast pain, abnormal mammogram, abnormal US or breast enlargement Musc Musculoskeletal: Yes back problems and arthritis; No rheumatoid arthritis, gout or joint pain Cardio Cardiovascular: Yes high blood pressure; No murmur, pacemaker, heart disease, atrial fibrillation, heart attack, heart stent, palpitations, shortness of breat with exertion or chest pain Psych Psychiatric: Yes depression and anxiety; No hearing voices Resp Respiratory: Yes shortness of breath, Yes sleep apnea, Yes cough, Yes COPD, No asthma, No emphysema and No wheezing Gastro Gastrointestinal: Yes abdominal pain, No nausea or vomiting, No diarrhea, No constipation, Yes blood in stool, Yes acid reflux, No hemorrhoids, No ulcers, No gallbladder problem and No black,tarry stools Nemesio Hematologic: No blood thinners, No blood disorders, No bleeding, No anemia and No blood clots Neuro Neurologic: No system reviewed and no additional complaints, except as document ed, No as per HPI, No abnormal gait, No abnormal hearing, No abnormal movements, No abnormal speech, No behavioral changes, No burning sensations, No confusion, No convulsions, No disequilibrium, No dizziness, No localized weakness, No frequent falls, No headache(s), No lack of coordination, No loss of vision, No memory loss, No numbness, No other visual disturbances, No radicular pain, No restless legs, No sensory deficit, No syncope, No tingling, No tremor(s), No weakness and No other Exam Const General: cooperative Orientation: alert and oriented x3 HENMT Head: normal to inspection Neck Neck: normal visual inspection and full ROM Chest Chest palpation & inspection: normal inspection of the chest Resp Effort & Inspection: normal respiratory effort Auscultation: clear to auscultation bilaterally Cardio Rate: regular rate Rhythm: regular rhythm GI Inspection: non-distended Palpation: soft and nontender Skin General: no rashes or lesions noted Neuro General: patient alert and patient oriented x3 Extrem General: full ROM Psych Appearance: grossly normal Mental Status: mental status grossly normal Assessment and Plan Assessment and Plan (1) Rectal bleeding: Status: Acute Plan - Dr. Maxi Beltrán MD: Patient has been noting blood per rectum for the last few days. This may be originating from the perirectal abscess that appears to be healing well there is a small opening to the right of the anus. I would like to perform a colonoscopy either way as she is still due for her surveillance as her last colonoscopy was 7 years ago and she did have a tubular adenoma. I explained endoscopy in detail to the patient. I explained the risks including but not limited to stroke or heart attack with anesthesia, perforation of the GI tract, bleeding, infection. I explained that any of these could necessitate further emergency surgery. The patient understands and all questions were answered sufficiently. The patient wishes to proceed with procedure. Maxi Beltrán MD Pager: [facility] [address] [place] [address], [address] [place] [address] Office: I have re-examined the patient. There are no clinical changes since date of exam.
[2021-08-12 07:31] LABS: Bedside Glucose 265 mg/dL (70-110)
[2021-08-12 08:03] VITALS: BP 112/59; BP 114/45; PULSE 88; RESP 16; TEMP 36.7; O2SAT 96
--- NOTE | 2021-08-12 08:05 | OP.COLON_ITS ---
Patient Name: Abbi Shook Procedure Date: 08/12/2021 6:56 AM Date of : 1950 Age: 71 Procedure: Colonoscopy Indications: Rectal bleeding Providers: Maxi Beltrán MD Medicines: Monitored Anesthesia Care Patient Profile: This is a 71 year old female. Refer to note in patient chart for documentation of history and physical. Last Colonoscopy: 10 years ago. Complications: No immediate complications. Procedure: Pre-Anesthesia Assessment: - Prior to the procedure, a History and Physical was performed, and patient medications and allergies were reviewed. The patient's tolerance of previous anesthesia was also reviewed. The risks and benefits of the procedure and the sedation options and risks were discussed with the patient. All questions were answered, and informed consent was obtained. Prior Anticoagulants: The patient has taken no previous anticoagulant or antiplatelet agents. After reviewing the risks and benefits, the patient was deemed in satisfactory condition to undergo the procedure. After I obtained informed consent, the scope was passed under direct vision. Throughout the procedure, the patient's blood pressure, pulse, and oxygen saturations were monitored continuously. The pediatric colonoscope was introduced through the anus and advanced to the cecum, identified by appendiceal orifice and ileocecal valve. The colonoscopy was performed without difficulty. The patient tolerated the procedure well. The quality of the bowel preparation was good. Scope In: 7:40:38 AM Scope Withdrawal Time 0 hours 5 minutes 8 seconds Scope Out: 7:55:13 AM Total Procedure Duration Time 0 hours 14 minutes 35 seconds Findings: The entire examined colon appeared normal on direct and retroflexion views. Impression: - The entire examined colon is normal on direct and retroflexion views. - No specimens collected. Recommendation: - Discharge patient to home. - Resume previous diet. - Continue present medications. - Repeat colonoscopy is not recommended due to current age (66 years or older) for screening purposes. Procedure Code(s): --- Professional --- 12832, Colonoscopy, flexible; diagnostic, including collection of specimen(s) by brushing or washing, when performed (separate procedure) Diagnosis Code(s): --- Professional --- K62.5, Hemorrhage of anus and rectum CPT copyright 2017 [employer]. All rights reserved. The codes documented in this report are preliminary and upon senior it security analyst review may be revised to meet current compliance requirements. Maxi Beltrán MD 08/12/2021 8:05:22 AM This report has been signed electronically. Number of Addenda: 0 Note Initiated On: 08/12/2021 6:56 AM
--- NOTE | 2021-08-12 08:06 | OP.CCLET_ITS ---
08/12/2021 Tom Mendez [address] [place] [address] Re : Colonoscopy procedure for Abbi Shook Dear Dr. Mendez This procedure was performed on Thursday, August 12, 2021. My impressions and recommendations are as follows: Impressions : - The entire examined colon is normal on direct and retroflexion views. - No specimens collected. Recommendations : - Discharge patient to home. - Resume previous diet. - Continue present medications. - Repeat colonoscopy is not recommended due to current age (66 years or older) for screening purposes. My findings are described in the full procedure note, which is enclosed. If I can be of further assistance, please feel free to contact me at Doctor phone number(s): , Work: . Sincerely, Maxi Beltrán MD 08/12/2021 8:05:22 AM This report has been signed electronically.
[2021-08-12 08:07] VITALS: BP 114/45; BP 116/60; PULSE 84; RESP 16; O2SAT 96
[2021-08-12 08:12] VITALS: BP 114/45; BP 121/59; PULSE 83; RESP 16; O2SAT 96
[2021-08-12 08:17] VITALS: BP 110/56; BP 114/45; PULSE 84; RESP 16; TEMP 36.7; O2SAT 95
[2021-08-12 08:27] VITALS: BP 114/45
== END 2021-08-12 23:59 | disposition home or self-care (01) ==
LOC: EN 06:33 → AC 06:34
PROVIDERS: PCP Family Medicine; Referring Provider Family Medicine; Visit Provider Surgery
PROC: 0DJD8ZZ Inspection of Lower Intestinal Tract, Via Natural or Artificial Opening Endoscopic (ICD-10-PCS; CPT 45378; principal; 2021-08-12 07:25)
DX: K62.5 Hemorrhage of anus and rectum (principal); J44.9 Chronic obstructive pulmonary disease, unspecified; E66.01 Morbid (severe) obesity due to excess calories; Z68.41 Body mass index [BMI] 40.0-44.9, adult; E11.9 Type 2 diabetes mellitus without complications; E78.00 Pure hypercholesterolemia, unspecified; I10 Essential (primary) hypertension; M19.90 Unspecified osteoarthritis, unspecified site; E07.9 Disorder of thyroid, unspecified; F17.210 Nicotine dependence, cigarettes, uncomplicated; Z79.84 Long term (current) use of oral hypoglycemic drugs; Z79.899 Other long term (current) drug therapy
CPT/HCPCS: 45378; 82962; J7120

== ENCOUNTER 2021-09-01 14:50 | Outpatient (CLI) | payer MEDICARE, SELFPAY ==
[2021-09-01 18:12] LABS: Vitamin B12 417 pg/mL (211-911); Vitamin D,25 Hydroxy 34.9 ng/mL
[2021-09-01 18:22] LABS: AST(SGOT) 32 U/L (15-37); Alanine Aminotransfer ALT/SGPT 38 U/L (13-56); Albumin, Serum 3.5 g/dL (3.2-5.0); Alkaline Phosphatase 106 U/L (45-117); Anion Gap 5 (5-15); BUN 17 mg/dL (7-18); BUN/Creat Ratio 18.6 RATIO (10-20); Calcium,Total 8.7 mg/dL (8.5-10.1); Chloride 105 mmol/L (98-107); Creatinine, Serum 0.91 mg/dL (0.55-1.02); EST Glomerular Filtration Rate 64 mL/min (>60); Est Glom Filt Rate - Afr Amer 78 mL/min (>60); Globulin 3.5 g/dL (2.2-4.2); Glucose 139 mg/dL (74-106); Potassium 4.5 mmol/L (3.5-5.1); Sodium Level 138 mmol/L (136-145); Thyroid Stim Hormone (TSH) 2.13 uIU/mL (0.358-3.74); Uric Acid 7.4 mg/dL (2.6-6.0)
== END 2021-09-01 23:59 | disposition home or self-care (01) ==
LOC: MFPLAB 14:51
PROVIDERS: PCP Family Medicine; Referring Provider Family Medicine; Visit Provider Family Medicine
DX: E11.9 Type 2 diabetes mellitus without complications (principal); E53.8 Deficiency of other specified B group vitamins; E55.9 Vitamin D deficiency, unspecified; M10.9 Gout, unspecified
CPT/HCPCS: 36415; 80053; 82306; 82607; 84443; 84550

== ENCOUNTER → 2022-03-16 | Outpatient (CLI) | payer MEDICARE, SELFPAY ==
[2022-03-16 15:45] LABS: Vitamin D,25 Hydroxy 38.2 ng/mL
[2022-03-16 16:01] LABS: Anion Gap 7 (5-15); BUN 16 mg/dL (7-18); BUN/Creat Ratio 18.3 RATIO (10-20); Calcium,Total 9.2 mg/dL (8.5-10.1); Chloride 102 mmol/L (98-107); Cholesterol 150 mg/dL (200); Creatinine, Serum 0.88 mg/dL (0.55-1.02); EST Glomerular Filtration Rate 68 mL/min (>60); Est Glom Filt Rate - Afr Amer 82 mL/min (>60); Glucose 119 mg/dL (74-106); High Density Lipoprotein 51 mg/dL; Potassium 4.1 mmol/L (3.5-5.1); Sodium Level 140 mmol/L (136-145); Triglycerides 291 mg/dL; Uric Acid 6.3 mg/dL (2.6-6.0); Very Low Density Lipoprotein 58 mg/dL (5-40)
== END | disposition home or self-care (01) ==
LOC: MFPLAB 11:50
PROVIDERS: PCP Family Medicine; Referring Provider Family Medicine; Visit Provider Family Medicine
DX: E11.22 Type 2 diabetes mellitus with diabetic chronic kidney disease (principal); N18.9 Chronic kidney disease, unspecified; M10.9 Gout, unspecified; R79.89 Other specified abnormal findings of blood chemistry
CPT/HCPCS: 36415; 80048; 80061; 82306; 84443; 84550

== ENCOUNTER → 2022-04-19 | Outpatient (CLI) | payer MEDICARE, SELFPAY ==
--- NOTE | 2022-04-19 12:55 | RAD_ITS ---
STUDY: X-RAY - LUMBOSACRAL SPINE REASON FOR EXAM: Female, 72 years old. Backache. TECHNIQUE: 7 view(s) of the lumbosacral spine, including lateral flexion and extension views, were obtained. COMPARISON: None FINDINGS: Osteopenia. Normal lumbar lordosis. There is no substantial scoliosis. There is normal alignment of the vertebrae. Limited flexion and extension with no abnormal motion. Diffuse facet sclerosis. Intervertebral disc space narrowing diffusely, most marked at L3-4 and L4-5. Normal bilateral sacral ala, sacroiliac joints, and visualized sacrum. Bilateral total hip arthroplasties. Normal visualized soft tissue structures. RAD/L/S Spine w Bend Min 6 Vw IMPRESSION: Osteopenia, limited flexion and extension no abnormal motion, and diffuse mild lumbosacral spondylosis most marked at L3-4 and L4-5. No acute abnormality, evidence of erosive changes or fusion. Electronically Signed: Khris Varela, at 9:27 EDT ,
== END | disposition home or self-care (01) ==
LOC: MTRAD 12:54
PROVIDERS: PCP Family Medicine; Visit Provider Family Medicine
DX: M47.817 Spondylosis without myelopathy or radiculopathy, lumbosacral region (principal)
CPT/HCPCS: 72114

== ENCOUNTER → 2022-05-19 | Outpatient (CLI) | payer MEDICARE, SELFPAY ==
--- NOTE | 2022-05-19 11:29 | RAD_ITS ---
INDICATION: PAIN EXAMINATION/TECHNIQUE: X-RAY - RIGHT XR Shoulder Min 2 Views: AP neutral, internal rotation, external rotation and scapular Y views of right shoulder COMPARISON: None. FINDINGS: SOFT TISSUES: No significant soft tissue swelling. BONES/JOINTS: No acute fracture or subluxation. Adequate alignment. Moderate glenohumeral joint space narrowing with subchondral eburnation and marginal osteophytosis. Mild acromioclavicular joint space narrowing and mild osteophytosis. 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 Electronically Signed: Jaden Juárez MD at 5:30 EST ,
--- NOTE | 2022-05-19 11:29 | RAD_ITS ---
INDICATION: PAIN EXAMINATION/TECHNIQUE: X-RAY - LEFT XR Shoulder Min 2 Views: AP neutral, internal rotation, external rotation and scapular Y views COMPARISON: None. FINDINGS: SOFT TISSUES: No significant soft tissue swelling. BONES/JOINTS: No acute fracture or subluxation. Adequate alignment. Moderate glenohumeral joint space narrowing with subchondral eburnation and marginal osteophytosis. Mild acromioclavicular joint space narrowing and mild osteophytosis. RAD/Shoulder min 2 Views IMPRESSION: Moderate left glenohumeral and mild acromioclavicular osteoarthrosis. Electronically Signed: Jaden Juárez MD at 5:31 EST ,
[2022-05-19 15:42] LABS: Absolute Lymphocyte Count 1.96 X10^3/uL (0.83-4.51); Basophil# 0.05 X10^3/uL; Basophil% 0.5 % (0-1); Eosinophil# 0.15 X10^3/uL; Eosinophils% 1.4 % (0-5); Hematocrit 34.9 % (37-47); Hemoglobin 11.1 g/dL (12.0-15.0); Lymphocyte # 1.96 X10^3/ul (0.83-4.51); Lymphocyte % 17.7 % (19-41); Mean Corp Hgb Conc 31.8 g/dL (32-36); Mean Corpuscular Hgb 31.7 pg (27.0-32.0); Mean Corpuscular Volume 99.7 fL (81-99); Monocyte# 0.86 X10^3/uL; Monocyte% 7.8 % (0-10); NRBC Flagged by Analyzer 0 % (0-5); Neutrophil # 7.96 X10^3/uL (2.7-7.7); Platelet Count 269 K/mm3 (150-450); RBC Distribution Width CV 13.5 % (11.6-14.6); RBC Distribution Width SD 49.3 fl (35.1-43.9); White Blood Count 11.1 K/mm3 (4.4-11.0)
[2022-05-19 16:09] LABS: Erythrocyte Sedimentation Rate 33 mm/hr (0-30)
[2022-05-19 16:42] LABS: AST(SGOT) 9 U/L (15-37); Alanine Aminotransfer ALT/SGPT 20 U/L (13-56); Albumin, Serum 3.3 g/dL (3.2-5.0); Alkaline Phosphatase 109 U/L (45-117); Anion Gap 9 (5-15); BUN 20 mg/dL (7-18); BUN/Creat Ratio 20.6 RATIO (10-20); Calcium,Total 8.8 mg/dL (8.5-10.1); Chloride 102 mmol/L (98-107); Creatinine, Serum 0.97 mg/dL (0.55-1.02); EST Glomerular Filtration Rate 60 mL/min (>60); Est Glom Filt Rate - Afr Amer 73 mL/min (>60); Globulin 3.4 g/dL (2.2-4.2); Glucose 110 mg/dL (74-106); Potassium 3.8 mmol/L (3.5-5.1); Protein, Total 6.7 g/dL (6.4-8.2); Rheumatoid Factor < 10.0 IU/mL (<15); Sodium Level 140 mmol/L (136-145); Uric Acid 5.7 mg/dL (2.6-6.0)
[2022-05-22 20:42] LABS: ANTINUCLEAR ANTIBODIES DIRECT Negative (Negative)
== END | disposition home or self-care (01) ==
LOC: MTLAB 11:27
PROVIDERS: PCP Family Medicine; Referring Provider Family Medicine; Visit Provider Family Medicine
DX: M25.50 Pain in unspecified joint (principal); M48.02 Spinal stenosis, cervical region; M25.511 Pain in right shoulder; M25.512 Pain in left shoulder; E03.9 Hypothyroidism, unspecified
CPT/HCPCS: 36415; 73030; 80053; 84443; 84550; 85025; 85652; 86038; 86140; 86431

== ENCOUNTER → 2022-10-27 | Outpatient (CLI) | payer MEDICARE, SELFPAY ==
[2022-10-27 15:45] LABS: Vitamin B12 247 pg/mL (211-911); Vitamin D,25 Hydroxy 51.1 ng/mL
[2022-10-27 15:56] LABS: CRP 3.94 mg/L (0.0-3.0)
[2022-10-27 16:24] LABS: Erythrocyte Sedimentation Rate 28 mm/hr (0-30)
[2022-10-30 09:05] LABS: PTHIN 18.7 pg/mL (18.4-80.1)
[2022-10-30 13:07] LABS: ANTINUCLEAR ANTIBODIES DIRECT Negative (Negative)
[2022-11-01 12:08] LABS: Arsenic 7245 1 ug/L (0-9); Lead, Blood < 1.0 ug/dL (0.0-3.4); Mercury, Blood 85324 < 1.0 ug/L (0.0-14.9); PROEL- Albumin 3.1 g/dL (2.9-4.4); PROEL- Alpha-1 Globulin 0.3 g/dL (0.0-0.4); PROEL- Beta Globulin 1.2 g/dL (0.7-1.3); PROEL- Gamma Globulin 0.6 g/dL (0.4-1.8); PROEL- Globulin, Total 3.1 g/dL (2.2-3.9); PROEL- TOTAL PROTEIN 6.2 g/dL (6.0-8.5)
== END | disposition home or self-care (01) ==
LOC: MFPLAB 12:17
PROVIDERS: Family Medicine; PCP Family Medicine; Visit Provider Family Medicine
DX: M62.81 Muscle weakness (generalized) (principal); M85.80 Other specified disorders of bone density and structure, unspecified site; Z79.899 Other long term (current) drug therapy
CPT/HCPCS: 36415; 82175; 82306; 82607; 82746; 83655; 83825; 83970; 84165; 85652; 86038; 86140; 86225; 86235

== ENCOUNTER → 2022-11-22 | Outpatient (CLI) | payer MEDICARE, SELFPAY ==
--- NOTE | 2022-11-22 15:09 | NEURO_ITS ---
NCS and/or EMG Patient Report Ordering Doctor: Mikel Velasquez DATE OF SERVICE: 11/22/22 Abbi presents for electrodiagnostic testing of the upper limbs. She reports neck and shoulder pain as well as weakness in both arms. She reports difficulty raising her arms above her head. She reports a history of cervical stenosis and diabetes. Electrodiagnostic findings: Left median motor nerve demonstrates borderline prolonged distal latency with normal amplitude and reduced conduction velocity. Right median motor nerve demonstrates prolonged latency with normal amplitude and reduced conduction velocity. Ulnar motor response is normal bilaterally, including conduction across the elbows. Borderline prolonged right median F wave. Prolonged left and right median sensory latency at the wrist. Needle EMG testing reveals 1+ fibrillations in the right pronator teres, right triceps and right lower cervical paraspinals. Motor unit action potentials of normal amplitude and duration. Electrodiagnostic assessment: This is an abnormal study in the upper limbs 1. Electrodiagnostic findings suggestive of bilateral median mononeuropathy. This is consistent with a mild bilateral carpal tunnel syndrome 2. Electrodiagnostic findings suggestive of acute right-sided C7 radiculopathy. Would consider correlation with cervical spine imaging to evaluate for potential disc herniation. However, this does not necessarily account for the patient's bilateral symptoms. Would also consider work-up for polymyalgia rheum atica based on her current symptoms. Multi Select Codes Neurology Neurology Interp Codes: 39291-76 Musc test done w/n test comp (interp) (2) and 69478-31 Nrv cndj test 13/> studies (interp)
--- NOTE | 2022-11-22 16:10 | RAD_ITS ---
INDICATION: PAIN shoulder pain, weakness both hands, known cervical stenosis EXAMINATION/TECHNIQUE: X-RAY - XR Spine Cervical 6 or More Views COMPARISON: FINDINGS: Vertebral bodies are normal in height. No definite fracture demonstrated. No subluxation. C1-2 alignment is maintained. Disc space narrowing with osteophytes C4-C7. Bilateral neural foraminal encroachment greater on the right at C3-4, C4-5, C5-6. Prevertebral soft tissues are unremarkable. No subluxation with flexion or extension. RAD/Cerv Spine Obl/Flex/Ext Comp IMPRESSION: No evidence of fracture or subluxation. Degenerative changes with multilevel neural foraminal encroachment. Electronically Signed: Lurdes Levine MD at 23:54 EDT ,
== END | disposition home or self-care (01) ==
PROVIDERS: PCP Family Medicine; Referring Provider Family Medicine; Visit Provider Family Medicine
DX: R29.898 Other symptoms and signs involving the musculoskeletal system (principal); M48.02 Spinal stenosis, cervical region
CPT/HCPCS: 72052; 95886; 95913

== ENCOUNTER 2022-12-05 13:15 | Emergency (ER) | payer MEDICARE, SELFPAY ==
[2022-12-05 13:16] VITALS: BP 132/53; PULSE 80; RESP 18; TEMP 36; O2SAT 99
[2022-12-05 13:32] VITALS: BMI 42.9
--- NOTE | 2022-12-05 13:33 | CT_ITS ---
HISTORY: dizziness. TECHNIQUE: Multiple axial images were obtained of the head without intravenous contrast. A radiation dose optimization technique was used for this scan. 248 images. COMPARISON: None. FINDINGS: BRAIN PARENCHYMA: Multiple foci and zones of low attenuation in the bilateral cerebral white matter compatible with chronic small vessel ischemic gliosis. No acute intra-axial hemorrhage identified. CSF SPACES: Generalized volume loss. No midline shift or other significant mass effect. No acute extra-axial hemorrhage seen. OTHER: Intact calvarium. No significant air fluid levels in the paranasal sinuses or mastoid air cells. Unremarkable orbits. CT/Brain/Head without Contrast IMPRESSION: No acute intracranial process identified. Chronic involutional and white matter changes. Electronically Signed: Oneyda Lancaster MD at 14:57 EDT ,
--- NOTE | 2022-12-05 13:34 | EX.ED.DYSGE1 ---
HPI History of Present Illness Chief Complaint: Hyperglycemia Detail of Chief Complaint: Dizziness Informant: patient Narrative Narrative: Patient presents to the emergency department complaint of dizziness for the last 2 days. Patient states that she noticed that when she would lay flat at night the room would spin around and round and then it would stop. She noticed that she was nauseated with it. This morning she bent over to picker and packer a dog bowl from the crate of her dog and when she turned to walk away she felt dizzy again and fell onto her bed. She did not injure herself. She has had remote history of vertigo. She denies any head injury. She denies recent illness. She denies chest pain or shortness of breath. She does also relate that she is currently been on prednisone for history of degenerative disc disease but she stopped taking the prednisone 4 days ago. She was worried that her blood sugar might be elevated. [facility] Medical History (Updated 12/05/22 @ 15:[address] Trang Tate, ) Alcohol use Ambulates with cane Arthritis Back pain Bronchitis COPD (chronic obstructive pulmonary disease) CPAP (continuous positive airway pressure) dependence Diabetes Former smoker Gastric reflux High cholesterol History of diverticulitis History of echocardiogram History of edema History of steroid therapy History of stress test HTN (hypertension) Hx of scarlet fever Hyperlipidemia GUZMAN (obstructive sleep apnea) Post-menopausal Sleep apnea SOB (shortness of breath) Thyroid disease Wears glasses Home Medications levothyroxine 50 mcg tablet 50 mcg PO DAILY 07/14/14 [History Last Taken 08/12/21 05:00] metoprolol succinate 100 mg tablet,extended release 24 hr 100 mg PO DAILY 07/14/14 [History Last Taken 08/12/21 05:00] rosuvastatin 10 mg tablet 10 mg PO QHS 07/14/14 [History Last Taken Unknown] metformin 500 mg tablet,extended release 24 hr 500 mg PO BID 04/24/17 [History Last Taken Unknown] lansoprazole 30 mg capsule,delayed release (Prevacid) 30 mg PO QHS 07/05/17 [History Last Taken Unknown] lisinopril 5 mg tablet 40 mg PO DAILY 09/13/17 [History Last Taken 08/12/21 05:00] tiotropium 2.5 mcg-olodaterol 2.5 mcg/actuation mist for inhalation (Stiolto Respimat) 2 puff inhalation Q24H #4 grams 04/05/19 [Rx Last Taken Unknown] albuterol sulfate 90 mcg/actuation aerosol inhaler 1 puff inhalation Q4H PRN PRN COPD 10/05/20 [History Last Taken Unknown] bupropion HCl 150 mg 24 hr tablet, extended release (Wellbutrin XL) 150 mg PO DAILY 10/05/20 [History Last Taken Unknown] doxazosin 2 mg tablet (Cardura) 2 mg PO DAILY 07/29/21 [History Last Taken Unknown] dulaglutide 1.5 mg/0.5 mL subcutaneous pen injector (Trulicity) 1.5 mg subcut QWEEK 07/29/21 [History Last Taken Unknown] duloxetine 30 mg capsule,delayed release (Cymbalta) 30 mg PO DAILY 07/29/21 [History Last Taken 08/12/21 05:00] spironolactone 25 mg tablet (Aldactone) 25 mg PO DAILY 08/10/21 [History Last Taken Unknown] meclizine 25 mg chewable tablet (Antivert) 25 mg PO TID PRN dizziness #20 tabs 12/05/22 [Rx Last Taken Unknown] ondansetron 4 mg disintegrating tablet 4 mg PO Q8H PRN PRN Nausea #10 tabs 12/05/22 [Rx Last Taken Unknown] Allergy/AdvReac Type Severity Reaction Status Date / Time Sulfa (Sulfonamide Allergy Mild Other - gi Verified 12/05/22 13:33 Antibiotics) upset amlodipine besylate Allergy Unknown Verified 12/05/22 13:33 [From [facility]] losartan [Losartan] Allergy Unknown Verified 12/05/22 13:33 Family History Grandfather Diabetes Surgical History H/O bilateral hip replacements H/O hernia repair H/O: hysterectomy History of back surgery History of cardiac catheterization Hx of tonsillectomy Social History Smoking Status: Current every day smoker tobacco type: cigarettes Tobacco: How many years used: 40 alcohol intake: never details: social substance use type: does not use caffeine: Yes what type of physical activity do you participate in: none seatbelt use: always do you feel safe at home: Yes additional social history: -retired ROS ROS ED Review of Systems ROS Unobtainable: other Constitutional Constitutional ED: Reports lethargy; Denies chills, fever(s), sweats or weight loss Eyes Eyes: Denies blurry vision, change in vision or diplopia ENT ENT ED: Denies rhinorrhea or sore throat Cardiovascular Cardiovascular: Denies chest pain, orthopnea or racing heartbeat Respiratory/Chest Respiratory/Chest: Denies cough, dyspnea, dyspnea on exertion, orthopnea or sputum Gastrointestinal Gastrointestinal: Reports nausea; Denies abdominal pain, diarrhea or vomiting Genitourinary Genitourinary ED: Denies dysuria, hematuria or urinary frequency Musculoskeletal Musculoskeletal: Denies arthralgias, back pain, myalgias or neck pain Integumentary Denies abscess, Abrasions or rash Neurologic Neurologic: Reports other Details: Dizziness ; Denies headache(s) or weakness Psychiatric Psychiatric: Denies anxiety, depression or suicidal thoughts Endocrine Endocrinology: Denies polydipsia, polyphagia or polyuria Hematologic/Lymphatic Hematologic/Lymphatic: Denies easy bleeding, easy bruising or lymphadenopathy Allergic/Immunologic Allergic/Immunologic ED: Denies mouth swelling, tongue swelling or urticaria EXAM Physical Exam Const Vital Signs: 12/05/22 13:16 12/05/22 13:35 12/05/22 13:52 Temperature 96.8 F L Temperature Source Temporal Pulse Rate 80 78 Pulse Rate [Lying] Pulse Rate [Sitting (for 1 minute prior to obtaining)] Pulse Rate [Standing (for 1 minute prior to obtaining)] Respiratory Rate 18 14 Respiratory Effort Normal Non-Labored Respiratory Pattern Normal Blood Pressure 132/53 H 123/48 H Blood Pressure [Lying] Blood Pressure [Sitting (for 1 minute prior to obtaining)] Blood Pressure [Standing (for 1 minute prior to obtaining)] Blood Pressure Mean 79 73 Blood Pressure Mean [Lying] Blood Pressure Mean [Sitting (for 1 minute prior to obtaining)] Blood Pressure Mean [Standing (for 1 minute prior to obtaining)] Pulse Ox 99 Oxygen Delivery Method Room Air Room Air 12/05/22 13:53 12/05/22 15:22 Temperature Temperature Source Pulse Rate 71 Pulse Rate [Lying] 76 Pulse Rate [Sitting (for 1 minute prior to obtaining)] 79 Pulse Rate [Standing (for 1 minute prior to obtaining)] 76 Respiratory Rate 16 Respiratory Effort Respiratory Pattern Blood Pressure 138/73 H Blood Pressure [Lying] 119/52 L Blood Pressure [Sitting (for 1 minute prior to obtaining)] 136/69 H Blood Pressure [Standing (for 1 minute prior to obtaining)] 142/71 H Blood Pressure Mean 94 Blood Pressure Mean [Lying] 74 Blood Pressure Mean [Sitting (for 1 minute prior to obtaining)] 91 Blood Pressure Mean [Standing (for 1 minute prior to obtaining)] 94 Pulse Ox Oxygen Delivery Method Room Air Positive well nourished and well developed General Appearance ED: well developed and NAD HEENT Reports TM's clear and moist mucous membranes normocephalic and atraumatic; Negative for trauma or tenderness Tympanic Membrane ED: Yes TM's clear Eyes PERRL and EOMs intact bilaterally General Eye ED: Negative for pale conjunctiva or scleral icterus Neck no lymphadenopathy, supple and no JVD General: Negative for tenderness Chest Wall inspection of chest normal and palpation of chest normal Chest: Negative for tenderness Resp normal respiratory effort and clear to auscultation bilaterally Effort and Inspection: Negative for respiratory distress or pain with movement Auscultation: Negative for rhonchi, wheezes or diminished lung sounds Cardio regular rate, regular rhythm, S1 normal heart sound, S2 normal heart sound and no murmurs Peripheral Pulses: pulses 2+ throughout GI normal to inspection, nondistended, normoactive bowel sounds, soft to palpation, non-tender, non-distended and no masses Back/Spine no CVA tenderness and no thoracic nor lumbar tenderness Extremity normal to inspection General Extremety ED: Negative for edema General Extremity: Negative for edema Neuro oriented x3, CN's II-XII intact bilaterally, no sensory deficits noted and gait normal Neuro Narrative: Hallpike maneuver performed and no nystagmus was elicited but she did symptomatically feel worse and complaint of dizziness with head turn to the left and to the right and as well as sitting. Sensorium / Orientation: awake, alert, oriented to person, oriented to place and oriented to time Motor Exam: strength 5/5 throughout and strength abnormal Psych mental status grossly normal Skin no rashes or lesions noted and no wounds MDM MDM MDM Narrative Medical decision making narrative: Patient presents with dizziness with concern that it might be related to elevated blood sugars. She has remote history of vertigo. Dizziness is positional and causes nausea. IV line established on arrival. Patient had a CBC with differential that was unremarkable. Chemistries unremarkable. Patient had an EKG that showed a sinus rhythm with a ventricular rate of 75 bpm with no acute ST segment changes. CT scan of the brain without contrast was unremarkable. Patient was given Zofran and Antivert and did feel improved but continues to complain of dizziness. Patient is feeling well enough that she think she can go home and does not want to be admitted. Patient will be written a prescription for Zofran and Antivert. I suspect she likely has benign positional vertigo. Patient to follow-up with her primary care physician within next 3 to 5 days. Lab Data Attestation: I reviewed the patient's lab results. Labs: Laboratory Results - last 24 hr 12/05/22 12/05/22 12/05/22 13:40 13:40 13:41 WBC 8.1 RBC 3.37 L Hgb 10.5 L Hct 32.6 L MCV 96.7 MCH 31.2 MCHC 32.2 RDW Std Deviation 49.4 H RDW Coeff of Lay 14.0 Plt Count 223 MPV 10.9 Immature Gran % (Auto) 1.100 H Neut % (Auto) 63.9 Lymph % (Auto) 23.6 Divide % (Auto) 8.9 Eos % (Auto) 1.9 Baso % (Auto) 0.6 Absolute Neuts (auto) 5.2 Absolute Lymphs (auto) 1.91 Nucleated RBC % 0 Sodium 138 Potassium 3.9 Chloride 103 Carbon Dioxide 27.0 Anion Gap 8 BUN 25 H Creatinine 1.04 H Estim Creat Clear Calc 38.67 Est GFR (MDRD) Af Amer 67 Est GFR (MDRD) Non-Af 55 L BUN/Creatinine Ratio 24.0 H Glucose 126 H Calcium 9.2 Urine Color Urine Clarity Urine pH Ur Specific [place] Urine Protein Urine Glucose (UA) Urine Ketones Urine Occult Blood Urine Nitrite Urine Bilirubin Urine Urobilinogen Ur Leukocyte Esterase Urine RBC Urine WBC Ur Squamous Epith Cells Urine Bacteria Urine Mucus POC Glucose 131 H 12/05/22 15:20 WBC RBC Hgb Hct MCV MCH MCHC RDW Std Deviation RDW Coeff of Lay Plt Count MPV Immature Gran % (Auto) Neut % (Auto) Lymph % (Auto) Divide % (Auto) Eos % (Auto) Baso % (Auto) Absolute Neuts (auto) Absolute Lymphs (auto) Nucleated RBC % Sodium Potassium Chloride Carbon Dioxide Anion Gap BUN Creatinine Estim Creat Clear Calc Est GFR (MDRD) Af Amer Est GFR (MDRD) Non-Af BUN/Creatinine Ratio Glucose Calcium Urine Color Yellow Urine Clarity Clear Urine pH 6.0 Ur Specific [place] 1.015 Urine Protein Negative Urine Glucose (UA) Normal Urine Ketones Negative Urine Occult Blood Negative Urine Nitrite Negative Urine Bilirubin Negative Urine Urobilinogen Normal Ur Leukocyte Esterase 100 H Urine RBC 0 SEEN Urine WBC 0-5 SEEN Ur Squamous Epith Cells 0-5 SEEN Urine Bacteria 0 SEEN Urine Mucus 0 SEEN POC Glucose Radiography Diagnostic Testing: Clinical Impression(s) from Imaging Studies Brain CT 12/05/22 13:33 IMPRESSION: No acute intracranial process identified. Chronic involutional and white matter changes. Electronically Signed: Oneyda Lanacster MD at 14:57 EDT , EKG Initial EKG: Attestation: I personally reviewed and interpreted this EKG as follows: Comments: Sinus rhythm with a rate of 75 bpm with no acute ST segment changes Discharge Plan Triage Chief Complaint: Hyperglycemia ED Provider: Trang Tate Dx/Rx/DC Orders Clinical Impression: Dizziness, Benign paroxysmal positional vertigo Instructions: ED BPV Vertigo, ED Vertigo, Unspecified Prescriptions: New ondansetron [ondansetron] 4 mg tablet,disintegrating 4 mg PO Q8H PRN PRN (Reason: Nausea) Qty: 10 0RF meclizine [Antivert] 25 mg tablet,chewable 25 mg PO TID PRN (Reason: dizziness) Qty: 20 0RF No Action lansoprazole [Prevacid] 30 mg capsule,delayed release(DR/EC) 30 mg PO QHS duloxetine [Cymbalta] 30 mg capsule,delayed release(DR/EC) 30 mg PO DAILY doxazosin [Cardura] 2 mg tablet 2 mg PO DAILY Trulicity 1.5 mg/0.5 mL pen injector 1.5 mg subcut QWEEK metoprolol succinate 100 MG tablet 100 mg PO DAILY levothyroxine 50 MCG tablet 50 mcg PO DAILY rosuvastatin 10 MG tablet 10 mg PO QHS lisinopril 5 mg tablet 40 mg PO DAILY metformin 500 MG tablet 500 mg PO BID Label Comments: albuterol sulfate 1 PUFF inhaler 1 puff INHALATION Q4H PRN PRN (Reason: COPD) bupropion HCl [Wellbutrin XL] 150 MG tablet extended release 24 hr 150 mg PO DAILY spironolactone [Aldactone] 25 mg tablet 25 mg PO DAILY Stiolto Respimat 2.5-2.5 mcg/actuation mist 2 puff INHALATION Q24H Qty: 4 4RF Rx Instructions: administer at approximately the same time(s) each day Primary Care Provider: Tom Mendez Referrals: Tom Mendez MD [Primary Care Provider] - 3-5 Days Disposition Disposition: Home, Self Care
[2022-12-05] MEDS: Ondansetron 4 MG/2 ML Vial IV (13:44)
[2022-12-05] MEDS: Meclizine HCl 25 MG Tablet PO (13:44)
[2022-12-05] MEDS: 0.9% Normal Saline 1,000 ML 150 ML IV (13:51)
[2022-12-05 13:52] VITALS: BP 123/48; PULSE 78; RESP 14
[2022-12-05 13:52] LABS: Absolute Lymphocyte Count 1.91 X10^3/uL (0.83-4.51); Absolute Neutrophil Count 5.2 X10^3/uL (2.0-7.7); Basophil# 0.05 X10^3/uL; Basophil% 0.6 % (0-1); Eosinophil# 0.15 X10^3/uL; Eosinophils% 1.9 % (0-5); Hematocrit 32.6 % (37-47); Hemoglobin 10.5 g/dL (12.0-15.0); Lymphocyte # 1.91 X10^3/ul (0.83-4.51); Lymphocyte % 23.6 % (19-41); Mean Corp Hgb Conc 32.2 g/dL (32-36); Mean Corpuscular Hgb 31.2 pg (27.0-32.0); Mean Corpuscular Volume 96.7 fL (81-99); Mean Platelet Vol. 10.9 fl (6.2-12.0); Monocyte# 0.72 X10^3/uL; Monocyte% 8.9 % (0-10); NRBC Flagged by Analyzer 0 % (0-5); Neutrophil # 5.17 X10^3/uL (2.7-7.7); Neutrophil % 63.9 % (47-70); Platelet Count 223 K/mm3 (150-450); RBC Distribution Width SD 49.4 fl (35.1-43.9); Red Blood Count 3.37 M/mm3 (4.2-5.4); White Blood Count 8.1 K/mm3 (4.4-11.0)
[2022-12-05 13:53] VITALS: BP 119/52; BP 136/69; BP 142/71; PULSE 76; PULSE 79
[2022-12-05 14:04] LABS: Anion Gap 8 (5-15); BUN 25 mg/dL (7-18); Calcium,Total 9.2 mg/dL (8.5-10.1); Chloride 103 mmol/L (98-107); Creatinine, Serum 1.04 mg/dL (0.55-1.02); EST Glomerular Filtration Rate 55 mL/min (>60); Est Glom Filt Rate - Afr Amer 67 mL/min (>60); Estimated Creatinine Clearance 38.67 ml/min; Glucose 126 mg/dL (74-106); Potassium 3.9 mmol/L (3.5-5.1); Sodium Level 138 mmol/L (136-145)
[2022-12-05 14:20] LABS: Bedside Glucose 131 mg/dL (74-106)
[2022-12-05 15:22] VITALS: BP 138/73; PULSE 71; RESP 16
[2022-12-05 15:28] LABS: Bacteria 0 SEEN /hpf (None Seen); Mucous, Urine 0 SEEN /hpf (<or=2+); Red Blood Cells-Urine 0 SEEN /hpf (0-5)
[2022-12-05 15:31] LABS: Color, Urine Yellow (Yellow); Glucose, Dipstick Normal (Normal); Ketone-Dipstick Negative (Negative); Leukocyte Esterase-Dipstick 100 /ul (Negative); Nitrite-Dipstick Negative (Negative); Occult Blood-Urine Negative /ul (Negative); Protein-Dipstick Negative (Negative); Specific Gravity, Urine 1.015 (1.002-1.030); Urine Bilirubin Dipstick Negative (Negative); Urine Clarity Clear (Clear); Urine Urobilinogen Normal (Normal)
[2022-12-05 15:44] LABS: Squamous Epithelial Cells - UA 0-5 SEEN /hpf (5-10); White Blood Cells 0-5 SEEN /hpf (0-5)
[2022-12-05 16:00] VITALS: BP 132/60; PULSE 75; RESP 15
== END 2022-12-05 16:07 | disposition home or self-care (01) ==
PROVIDERS: Emergency Provider Emergency Medicine; PCP Family Medicine; Visit Provider Emergency Medicine
DX: R42 Dizziness and giddiness (principal); G47.33 Obstructive sleep apnea (adult) (pediatric); F17.210 Nicotine dependence, cigarettes, uncomplicated; H81.10 Benign paroxysmal vertigo, unspecified ear
CPT/HCPCS: 70450; 80048; 81001; 82962; 85025; 93005; 96361; 96374; 99285; J7030; A4216; J2405

== ENCOUNTER → 2022-12-25 | Outpatient (CLI) | payer MEDICARE, SELFPAY ==
[2022-12-25 18:33] LABS: ALB/GLOB Ratio 0.9 RATIO (0.9-2.4); AST(SGOT) 13 U/L (15-37); Alanine Aminotransfer ALT/SGPT 21 U/L (13-56); Albumin, Serum 3.1 g/dL (3.2-5.0); Alkaline Phosphatase 102 U/L (45-117); Anion Gap 5 (5-15); BUN 24 mg/dL (7-18); BUN/Creat Ratio 24.5 RATIO (10-20); Calcium,Total 8.7 mg/dL (8.5-10.1); Chloride 106 mmol/L (98-107); Cholesterol 155 mg/dL (200); Creatinine, Serum 0.98 mg/dL (0.55-1.02); EST Glomerular Filtration Rate 59 mL/min (>60); Est Glom Filt Rate - Afr Amer 72 mL/min (>60); Globulin 3.5 g/dL (2.2-4.2); Glucose 102 mg/dL (74-106); High Density Lipoprotein 57 mg/dL; Potassium 4.2 mmol/L (3.5-5.1); Protein, Total 6.6 g/dL (6.4-8.2); Sodium Level 139 mmol/L (136-145); Thyroid Stim Hormone (TSH) 2.22 uIU/mL (0.358-3.74); Triglycerides 322 mg/dL; Very Low Density Lipoprotein 64 mg/dL (5-40)
[2022-12-26 13:40] LABS: Vitamin B12 > 2000 pg/mL (211-911)
== END | disposition home or self-care (01) ==
LOC: MFPLAB 15:03
PROVIDERS: PCP Family Medicine; Visit Provider Family Medicine
DX: E03.9 Hypothyroidism, unspecified (principal); E11.22 Type 2 diabetes mellitus with diabetic chronic kidney disease; N18.9 Chronic kidney disease, unspecified
CPT/HCPCS: 36415; 80053; 80061; 82607; 84443

== ENCOUNTER → 2023-02-14 | Outpatient (CLI) | payer MEDICARE, SELFPAY ==
--- NOTE | 2023-02-14 12:48 | MRI_ITS ---
STUDY: MRI CERVICAL SPINE REASON FOR EXAM: Female, 72 years old. cervical stenosis TECHNIQUE: MRI examination of the cervical spine obtained with standard protocol including multiplanar multiecho Noncontrast imaging. Contrast: No contrast administered COMPARISON: No pertinent prior examinations for comparison. FINDINGS: Vertebral bodies and alignment: 1. Vertebral body height and alignment are maintained. No evidence of marrow edema, fracture or subluxation. 2. Prevertebral soft tissue planes have normal appearance. 3. Normal appearance the odontoid process and alignment of the craniocervical junction. 4. Normal appearance the posterior muscular fascial planes of the cervical spine, and the posterior ligamentous support structure the cervical spine is intact. Intervertebral disc levels: C2-3: Mild disc desiccation without disc herniation canal stenosis or cord compression. There is significant narrowing of the LEFT neural foramen with potential nerve root impingement. RIGHT neural foramen is widely patent. C3-4: Disc desiccation without disc herniation or canal stenosis, extensive bilateral foraminal stenosis greater on LEFT than RIGHT. C4-5: Disc desiccation, broad-based posterior disc bulge I, osteophyte formation noted, central thecal sac is maintained at 9 mm. No cord compression however there is extensive bilateral foraminal stenosis greater on the RIGHT than LEFT C5-6: Disc desiccation, broad-based posterior disc bulge and osteophyte complex without evidence canal stenosis. Bilateral foraminal stenosis however noted greater on the RIGHT than LEFT. C6-7: Disc desiccation, broad-based posterior disc bulge and minimal osteophyte, central thecal sac is maintained at greater than 10 mm. There is narrowing significant stenosis of the neural foramina bilaterally. C7-T1: Disc desiccation without disc herniation or canal stenosis. Significant foraminal stenosis greater on the LEFT than RIGHT. Spinal CORD: There is normal appearance the spinal cord. No intramedullary signal abnormality, masses or syrinx. Normal appearance of the cervical medullary junction. No evidence cord compression. MRI/Spine Cervical (Routine) IMPRESSION: 1. Extensive multilevel bilateral foraminal stenosis with potential nerve root impingement at multiple levels throughout the cervical spine. 2. Mild disc desiccation minimal disc bulge is noted without evidence of disc herniation canal stenosis or cord compression. 3. Normal appearance of the cervical cord. Electronically Signed: Gabriele Simon MD at 0:57 EDT ,
== END | disposition home or self-care (01) ==
LOC: MRI 12:41
PROVIDERS: PCP Family Medicine; Referring Provider Family Medicine; Visit Provider Family Medicine
DX: M48.02 Spinal stenosis, cervical region (principal)
CPT/HCPCS: 72141

== ENCOUNTER → 2023-03-23 | Outpatient (CLI) | payer MEDICARE, SELFPAY | END | disposition home or self-care (01) | LOC: MTLAB 16:03 | PROVIDERS: PCP Family Medicine; Referring Provider Orthopaedic Surgery; Visit Provider Orthopaedic Surgery | DX: E11.9 Type 2 diabetes mellitus without complications (principal) | CPT/HCPCS: 36415; 83036 ==

== ENCOUNTER → 2023-03-26 | Outpatient (CLI) | payer MEDICARE, SELFPAY ==
[2023-03-26 17:55] LABS: Hematocrit 34.5 % (37-47); Hemoglobin 10.6 g/dL (12.0-15.0); Mean Corp Hgb Conc 30.7 g/dL (32-36); Mean Corpuscular Hgb 31.6 pg (27.0-32.0); Mean Platelet Vol. 12.2 fl (6.2-12.0); Platelet Count 231 K/mm3 (150-450); RBC Distribution Width CV 13.6 % (11.6-14.6); RBC Distribution Width SD 51.5 fl (35.1-43.9); Red Blood Count 3.35 M/mm3 (4.2-5.4); White Blood Count 10.1 K/mm3 (4.4-11.0)
[2023-03-26 18:27] LABS: AST(SGOT) 14 U/L (15-37); Alanine Aminotransfer ALT/SGPT 29 U/L (13-56); Albumin, Serum 3.4 g/dL (3.2-5.0); Alkaline Phosphatase 91 U/L (45-117); Anion Gap 8 (5-15); BUN 26 mg/dL (7-18); BUN/Creat Ratio 26.6 RATIO (10-20); Calcium,Total 8.9 mg/dL (8.5-10.1); Chloride 102 mmol/L (98-107); Creatinine, Serum 0.98 mg/dL (0.55-1.02); EST Glomerular Filtration Rate 59 mL/min (>60); Est Glom Filt Rate - Afr Amer 72 mL/min (>60); Globulin 3.3 g/dL (2.2-4.2); Glucose 133 mg/dL (74-106); Potassium 4.1 mmol/L (3.5-5.1); Protein, Total 6.7 g/dL (6.4-8.2); Sodium Level 139 mmol/L (136-145); Thyroid Stim Hormone (TSH) 1.54 uIU/mL (0.358-3.74)
[2023-03-27 09:17] LABS: RET-HE 36.2 pg (30-35); Reticulocyte Count 2.32 % (0.5-1.5)
[2023-03-27 09:32] LABS: Ferritin 71 ng/mL (8-252); Iron 93 ug/dL (50-170)
== END | disposition home or self-care (01) ==
LOC: MFPLAB 15:03
PROVIDERS: PCP Family Medicine; Visit Provider Family Medicine
DX: D64.9 Anemia, unspecified (principal); E03.9 Hypothyroidism, unspecified
CPT/HCPCS: 36415; 80053; 82728; 83540; 84443; 85027; 85045

== ENCOUNTER → 2023-08-27 | Outpatient (CLI) | payer MEDICARE, SELFPAY ==
--- NOTE | 2023-08-27 16:39 | RAD_ITS ---
INDICATION: cough, wheezing. rhonchi RLL EXAMINATION/TECHNIQUE: X-RAY - XR Chest 2 Views COMPARISON: No previous relevant examinations available for comparison.. FINDINGS: LIFE-SUPPORT AND LINES: 1. None HEART AND VESSELS: Cardiac silhouette is large, no evidence of congestive failure. LUNGS AND PLEURAL SPACES: Mild interstitial prominence at the lung bases, greater on RIGHT than LEFT. No consolidation, no effusion. No pulmonary mass is noted. MEDIASTINUM AND HILAR REGIONS: No masses adenopathy noted. No areas of calcification. Visualized upper airway is normal in position. BONY ELEMENTS: No acute bony changes noted. RAD/Chest PA and Lateral IMPRESSION: 1. Mild interstitial prominence at the lung bases greater on the RIGHT than LEFT. Subtle interstitial infiltrate is a consideration. No consolidation, congestive failure or effusion. 2. Borderline cardiomegaly. Electronically Signed: Gabriele Simon MD at 23:26 EDT ,
== END | disposition home or self-care (01) ==
PROVIDERS: PCP Family Medicine; Referring Provider Family Medicine; Visit Provider Family Medicine
DX: J44.9 Chronic obstructive pulmonary disease, unspecified (principal)
CPT/HCPCS: 71046

== ENCOUNTER → 2023-10-05 | Outpatient (CLI) | payer MEDICARE, SELFPAY ==
[2023-10-05 16:55] LABS: Amphetamine Urine VISTA NEGATIVE (<1000 ng/mL); Barbiturate Urine VISTA NEGATIVE (< 200 ng/mL); Benzodiazepine Urine VISTA NEGATIVE (< 200 ng/mL); Cocaine Urine VISTA NEGATIVE (< 300 ng/mL); Ecstacy Urine VISTA POSITIVE (< 500 ng/mL); Methadone Urine VISTA NEGATIVE (< 300 ng/mL); PCP Urine VISTA NEGATIVE (< 25 ng/mL); THC Urine VISTA POSITIVE (< 50 ng/mL); Vista UDS pH Range 4
== END | disposition home or self-care (01) ==
PROVIDERS: PCP Family Medicine; Referring Provider Anesthesiology; Visit Provider Anesthesiology
DX: F11.20 Opioid dependence, uncomplicated (principal)
CPT/HCPCS: 80307

== ENCOUNTER 2023-10-15 12:38 | Outpatient (CLI) | payer MEDICARE, SELFPAY ==
[2023-10-15 15:08] LABS: Hematocrit 30.2 % (37-47); Hemoglobin 9.8 g/dL (12.0-15.0); Mean Corp Hgb Conc 32.5 g/dL (32-36); Mean Corpuscular Hgb 32.6 pg (27.0-32.0); Mean Corpuscular Volume 100.3 fL (81-99); Mean Platelet Vol. 11.8 fl (6.2-12.0); Platelet Count 251 K/mm3 (150-450); RBC Distribution Width CV 14.1 % (11.6-14.6); RBC Distribution Width SD 51.3 fl (35.1-43.9); Red Blood Count 3.01 M/mm3 (4.2-5.4); White Blood Count 9.5 K/mm3 (4.4-11.0)
[2023-10-15 15:25] LABS: Vitamin B12 304 pg/mL (211-911); Vitamin D,25 Hydroxy 36.6 ng/mL
[2023-10-15 15:34] LABS: BNP,B-Type NATRIURETIC PEPTIDE 76.1 pg/mL (0-100)
[2023-10-15 15:40] LABS: ALB/GLOB Ratio 1.1 RATIO (0.9-2.4); AST(SGOT) 12 U/L (15-37); Alanine Aminotransfer ALT/SGPT 16 U/L (13-56); Albumin, Serum 3.4 g/dL (3.2-5.0); Alkaline Phosphatase 71 U/L (45-117); Anion Gap 6 (5-15); BUN 28 mg/dL (7-18); BUN/Creat Ratio 24.3 RATIO (10-20); CRP < 2.90 mg/L (0.0-3.0); Calcium,Total 8.9 mg/dL (8.5-10.1); Chloride 104 mmol/L (98-107); Cholesterol 133 mg/dL (200); Creatinine, Serum 1.15 mg/dL (0.55-1.02); EST Glomerular Filtration Rate 49 mL/min (>60); Est Glom Filt Rate - Afr Amer 59 mL/min (>60); Globulin 3.1 g/dL (2.2-4.2); Glucose 134 mg/dL (74-106); High Density Lipoprotein 57 mg/dL; Iron 58 ug/dL (50-170); Potassium 4.2 mmol/L (3.5-5.1); Protein, Total 6.5 g/dL (6.4-8.2); Sodium Level 138 mmol/L (136-145); Thyroid Stim Hormone (TSH) 3.48 uIU/mL (0.358-3.74); Triglycerides 154 mg/dL; Very Low Density Lipoprotein 31 mg/dL (5-40)
[2023-10-17 07:47] LABS: PTHIN 43.7 pg/mL (18.4-80.1)
== END 2023-10-15 23:59 | disposition home or self-care (01) ==
PROVIDERS: PCP Family Medicine; Referring Provider Family Medicine; Visit Provider Family Medicine
DX: R60.0 Localized edema (principal); E11.22 Type 2 diabetes mellitus with diabetic chronic kidney disease; N18.30 Chronic kidney disease, stage 3 unspecified; E53.8 Deficiency of other specified B group vitamins; R79.82 Elevated C-reactive protein (CRP); R79.89 Other specified abnormal findings of blood chemistry
CPT/HCPCS: 36415; 80053; 80061; 82306; 82607; 83540; 83880; 83970; 84443; 85027; 86140

== ENCOUNTER → 2023-10-30 | Outpatient (CLI) | payer MEDICARE, SELFPAY ==
--- NOTE | 2023-10-30 08:08 | MRI_ITS ---
HISTORY: pain. TECHNIQUE: Multiplanar and multisequence MR images of the lumbar spine were obtained without intravenous contrast. 145 images. COMPARISON: XR 05-09. FINDINGS: VERTEBRAE: Vertebral body heights maintained. Mild degenerative endplate changes. No other significant bone marrow signal abnormality. ALIGNMENT: Chronic 2 mm anterolisthesis of L3-4. CONUS: Normal morphology and position of the conus medullaris at the lower L1 level. INTERVERTEBRAL DISCS: T10-11: Disc bulge with facet arthropathy resulting in mild central canal stenosis and moderate bilateral foraminal narrowing based on the sagittal images. T11-12: Disc bulge with facet arthropathy resulting in mild left and moderate right foraminal narrowing based on the sagittal images. T12-L1: Disc bulge with facet arthropathy resulting in minimal narrowing of the thecal sac and moderate right foraminal narrowing based on the sagittal images. L1-2: Very mild disc bulge with facet arthropathy resulting in mild right foraminal narrowing. No significant central canal stenosis. L2-3: Very mild disc bulge and moderate facet arthropathy superimposed on a developmentally narrow spinal canal resulting in mild central canal stenosis and mild right greater than left foraminal narrowing. L3-4: Mild-moderate disc bulge eccentric to the right with moderate facet arthropathy superimposed on a developmentally narrow spinal canal resulting in right L4 nerve root abutment/impingement, severe central canal stenosis, and mild right greater than left foraminal narrowing. L4-5: Mild posterior disc bulge osteophyte complex with a superimposed mild right paracentral disc extrusion with inferior migration into the right lateral recess impinging the right L5 nerve root in combination with facet arthropathy and a developmentally narrow spinal canal resulting in mild central canal stenosis, mild right, and moderate left foraminal narrowing. L5-S1: Posterior disc bulge osteophyte complex with superimposed 4 x 9 x 10 mm left paracentral disc extrusion with superior migration effacing the left lateral recess with left S1 nerve root impingement, left S2 nerve root impingement of the thecal sac, in combination with facet arthropathy resulting in moderate central canal stenosis and moderate bilateral foraminal narrowing with bilateral L5 nerve root impingement. SOFT TISSUES: Mild posterior subcutaneous edema. MRI/Spine Lumbar (Routine) IMPRESSION: Multilevel degenerative disc disease superimposed on a developmentally narrow spinal canal with severe spinal canal stenosis and possible right nerve root impingement at L3-4. Right paracentral disc extrusion with inferior migration at L4-5 resulting in right nerve root impingement, mild spinal canal stenosis, and bilateral foraminal narrowing. Left paracentral disc extrusion with superior migration at L5-S1 resulting in moderate spinal canal stenosis, bilateral foraminal narrowing, and nerve root impingement as above. Electronically Signed: Oneyda Lancaster MD at 9:57 EDT ,
--- NOTE | 2023-11-16 11:39 | EKG12_ITS ---
Test Reason : PREOP Blood Pressure : / mmHG Vent. Rate : 069 BPM Atrial Rate : 069 BPM P-R Int : 136 ms QRS Dur : 074 ms QT Int : 414 ms P-R-T Axes : 069 023 061 degrees QTc Int : 443 ms Normal sinus rhythm Low voltage QRS Borderline ECG Confirmed by KELY REDD, SUZIE ([id number]), editor managing newspaper SUE LIMA ([id number]) on 11/19/2023 7:03:45 AM Referred By: Stephen Feliciano Confirmed By:GUNNER EDGE MD
== END | disposition home or self-care (01) ==
PROVIDERS: PCP Family Medicine; Referring Provider Orthopaedic Surgery; Visit Provider Orthopaedic Surgery
DX: M54.17 Radiculopathy, lumbosacral region (principal)
CPT/HCPCS: 72148

== ENCOUNTER 2023-11-27 10:44 | Observation (INO) | payer MEDICARE, SELFPAY ==
[2023-11-16 12:00] LABS: Absolute Lymphocyte Count 1.79 X10^3/uL (0.83-4.51); Absolute Neutrophil Count 5.3 X10^3/uL (2.0-7.7); Basophil# 0.04 X10^3/uL; Basophil% 0.5 % (0-1); Eosinophil# 0.15 X10^3/uL; Eosinophils% 1.9 % (0-5); Hematocrit 32.2 % (37-47); Hemoglobin 10.1 g/dL (12.0-15.0); Lymphocyte # 1.79 X10^3/ul (0.83-4.51); Lymphocyte % 22.1 % (19-41); Mean Corp Hgb Conc 31.4 g/dL (32-36); Mean Corpuscular Hgb 31.5 pg (27.0-32.0); Mean Corpuscular Volume 100.3 fL (81-99); Mean Platelet Vol. 11.1 fl (6.2-12.0); Monocyte# 0.71 X10^3/uL; Monocyte% 8.8 % (0-10); NRBC Flagged by Analyzer 0 % (0-5); Neutrophil # 5.33 X10^3/uL (2.7-7.7); Neutrophil % 65.7 % (47-70); Platelet Count 223 K/mm3 (150-450); RBC Distribution Width CV 13.4 % (11.6-14.6); RBC Distribution Width SD 49.8 fl (35.1-43.9); Red Blood Count 3.21 M/mm3 (4.2-5.4); White Blood Count 8.1 K/mm3 (4.4-11.0)
[2023-11-16 12:26] LABS: Anion Gap 4 (5-15); BUN 23 mg/dL (7-18); BUN/Creat Ratio 16.1 RATIO (10-20); Calcium,Total 9.1 mg/dL (8.5-10.1); Chloride 104 mmol/L (98-107); Creatinine, Serum 1.43 mg/dL (0.55-1.02); EST Glomerular Filtration Rate 38 mL/min (>60); Est Glom Filt Rate - Afr Amer 46 mL/min (>60); Glucose 133 mg/dL (74-106); Potassium 4.1 mmol/L (3.5-5.1); Sodium Level 134 mmol/L (136-145)
[2023-11-16 12:30] LABS: Hemoglobin A1c 6.1 % (3.8-5.6)
[2023-11-16 12:37] LABS: Magnesium 1.6 mg/dL (1.6-2.6); Thyroid Stim Hormone (TSH) 3.43 uIU/mL (0.358-3.74)
[2023-11-16 13:05] LABS: HIV - WCH Non-Reactive (Nonreactive); Hepatitis B Surface Antibody Non-Reactive; Hepatitis C Antibody Non-Reactive (Nonreactive)
[2023-11-17 08:12] LABS: Hepatitis A AB, Total Positive (Negative)
[2023-11-27] VITALS (12 sets, daily range): BP systolic 106–134; BP diastolic 43–66; PULSE 63–82; RESP 16–18; TEMP 36.1–37.1; O2SAT 93–100; BMI 41.8; BMI 42.1; BMI 42.2
--- NOTE | 2023-11-27 | DISC_PTH ---
PATIENT: KRISTIAN WREN LOC: [facility] U#:[id number] AGE/SX: 73/F ROOM: MI312 RE11/27/[address]: Dr. Dion Loyd MD : 1950 BED: 1 DIS: 11/28/2023 SPEC #: [id number] RECD: 11/27/23 12:59 STATUS: KERA TAYLOR #: [id number] POLA: 11/27/23 00:[address]: Dion Loyd DEPT: SURGICAL PATHOLOGY RECD BY: Michael Tobar ENTERED: 11/27/23 12:59 SP TYPE: DISC OTHR DR: Dr. Scott Mendez MD Tissues: Intervertebral disc, NOS Procedures: Surgery Specimen Level III HEADER OPERATION: Lumbar L5-S1 laminectomy, discectomy and foraminotomy PRE-OP DIAGNOSIS: Lumbar radiculopathy, other intervertebral disc degeneration, lumbar region, spinal stenosis of lumbar region with neurogenic claudication TISSUE SUBMITTED: L5-S1 disc MICROSCOPIC DIAGNOSIS L5-S1 disc, discectomy: Intervertebral disc with degenerative change. Polarizable crystalline debris consistent with pseudogout . SEAN/ 11/28/2023 MICROSCOPIC DESCRIPTION Slides are reviewed. GROSS DESCRIPTION Received in fixative is one container labeled with the patient's name and designated L5-S1 disc. The specimen consists of multiple fragments of still-pink indurated tissue measuring in aggregate 2.5 x 2.0 x 0.2cm. The entire specimen is submitted in one cassette. GORDON/ 11/27/2023 TC:5 CPT: 58430
[2023-11-27] MEDS: Lactated Ringers 1,000 ML 15 ML IV ×2 (06:05→08:33)
[2023-11-27] MEDS: Magnesium 2 GM for ERAS IV (06:15)
--- NOTE | 2023-11-27 06:30 | NURSING ---
PATIENT BGL TAKEN, RESULT WAS 183 AT 0625. PATIENT STATED SHE DID NOT WISH TO HAVE INSULIN ADMINISTERED TO HER. PATIENT IS ALERT AND ORIENTED TIMES 4. RN WILL ATTEMPT TO DOCUMENT REFUSAL IN MAR IF [facility] WILL ALLOW
[2023-11-27] MEDS: Acetaminophen 500 MG Tablet 1000 MG PO ×3 (06:40→21:36)
--- NOTE | 2023-11-27 07:26 | PCM.HP.BLA ---
History and Physical Date of Admission: 11/27/23 MR#: [id number] Acct: [id number] Name: ABBI WREN Rep #: [id number] : [id number] Provider: Dr. Dion Loyd MD Age/Sex: 73/F Location: [facility] [place] Status: Signed Intake Vital Signs 10/31/2413:21 Height 5 ft 1 in Intake Visit Reasons: lumbar spine Chief Complaint: Pre-op lumbar fusion Physician'S Assistant Required: No Accompanied by: Self Is patient in pain?: Yes (Low back & RLE) Pain scale (1-10): 10 Allergies Sulfa (Sulfonamide Antibiotics) Allergy (Mild, Verified 11/16/23 13:32) Other - gi upsetamlodipine besylate (From Norvasc) Allergy (Verified 11/16/23 13:32) Unknownlosartan (Losartan) Allergy (Verified 11/16/23 13:32) Unknown Medications ?Medication ?Instructions ?Recorded ?Confirmed ?Type levothyroxine 50 mcg tablet 50 mcg PO DAILY 07/14/14 11/16/23 History metoprolol succinate 100 mg 100 mg PO DAILY 07/14/14 11/16/23 History tablet,extended release 24 hr rosuvastatin 10 mg tablet 10 mg PO QHS 07/14/14 11/16/23 History metformin 500 mg tablet,extended 500 mg PO QHS 04/24/17 11/16/23 History release 24 hr lansoprazole 30 mg capsule,delayed 30 mg PO QHS 07/05/17 11/16/23 History release (Prevacid) albuterol sulfate 90 mcg/actuation 1 puff inhalation Q4H PRN PRN COPD 10/05/20 11/16/23 History aerosol inhaler bupropion HCl 150 mg 24 hr tablet, 150 mg PO DAILY 10/05/20 11/16/23 History extended release (Wellbutrin XL) doxazosin 2 mg tablet (Cardura) 2 mg PO QHS 07/29/21 11/16/23 History dulaglutide 1.5 mg/0.5 mL 1.5 mg subcut TH 07/29/21 11/16/23 History subcutaneous pen injector (Trulicity) duloxetine 30 mg capsule,delayed 30 mg PO DAILY 07/29/21 11/16/23 History release (Cymbalta) spironolactone 25 mg tablet 25 mg PO DAILY 08/10/21 11/16/23 History (Aldactone) meclizine 25 mg chewable tablet 25 mg PO TID PRN dizziness #20 tabs 12/05/22 11/16/23 Rx (Antivert) cholecalciferol (vitamin D3) 50 50 mcg PO DAILY 03/01/23 11/16/23 History mcg (2,000 unit) capsule (Vitamin D3) pioglitazone 15 mg tablet (Actos) 15 mg PO DAILY 03/01/23 11/16/23 History tramadol 50 mg tablet 50 mg PO Q8H PRN pain 20 days #60 11/01/23 11/16/23 Rx tabs lisinopril 40 mg tablet 20 mg PO DAILY 11/15/23 11/16/23 History tiotropium 2.5 mcg-olodaterol 2.5 2 puff inhalation QHS 11/15/23 11/16/23 History mcg/actuation mist for inhalation (Stiolto Respimat) PFSH Medical History Marijuana use Depression Syncope Dietary restriction BiPAP (biphasic positive airway pressure) dependence History of pain when walking Bilateral carpal tunnel syndrome Wears glasses Post-menopausal Alcohol use Thyroid disease Ambulates with cane Arthritis High cholesterol Back pain History of diverticulitis Gastric reflux Former smoker COPD (chronic obstructive pulmonary disease) History of edema History of stress test History of echocardiogram Hx of scarlet fever Hyperlipidemia Diabetes HTN (hypertension) Surgical History Hx of toe surgery Hx of colonoscopy History of cardiac catheterization Hx of tonsillectomy H/O hernia repair History of back surgery H/O: hysterectomy H/O bilateral hip replacements Family History Grandfather Diabetes Social History (Updated 11/16/23 @ 13:33 by Ellie Herbert) Smoking Status: Current some day smoker tobacco type: cigarettes Tobacco: How many years used: 40 alcohol intake: current alcohol intake frequency: a few times a week details: social substance use type: other details: Medical marijuana gummies caffeine: Yes what type of physical activity do you participate in: none seatbelt use: always do you feel safe at home: Yes additional social history: -retired HPI lumbar spine Details: This documentation accurately reflects the service provided and the decisions made by me, Dr. Dion Loyd MD 11/16/23 6584. Part of today?s visit was documented by [ ], acting as scribe. ABBI WREN is a 73 year old F here today for pre-op education. C/o low back pain radiating to RLE rated 10 out of ten today. Pt appears uncomfortable but no distress noted. Denies numbness or tingling. Pre-op education completed regarding Ensure Pre-Surgery drinks and Hibiclens skin cleanser. Abbi continues to have low back pain radiating down to the right lower extremity. She says that her leg pain continues to be more than her back pain. No recent injuries or changes. Following is her previous history: 11/02/23: ABBI WREN is a 73 year old F here today for lumbar spine pain. Patient rates her pain a 10/10 today. She was seen by Dr. Feliciano this week and referred. Patient states the pain is all across her lumbar spine. She states she gets really bad pain down into her right leg. She states the pain gets really bad when she is driving and after she gets out of the car. Patient states she takes extra strength Tylenol, Motrin and Tramadol for the pain. She states she also will take CBD gummies when it gets bad as well. Patient states her most recent injection was about [address] Reeves in which she has not noticed any relief at all. Abbi is here today from referral by Dr. Feliciano. She has had low back pain for many years severely aggravated over the last 2 years. She is unable to walk even half a block distance after which she has to find a place to sit down. She also finds difficulty for sitting long peers of time. She points an area of the beltline in the lower back going both to the right and left for her area of axial back pain. She has also had a 2-year history of radicular symptoms going down the right lower extremity along the lateral thigh and lateral leg into the dorsum of the foot. Her lumbar laminotomy surgery at L4-5 on the right was more than 2 decades ago. She did cannot remember whether she had radicular symptoms back then. At this point her leg hurts more than the lower back. She has had chiropractic treatment as well as multiple epidural steroid injections which have not been giving her persistent relief lately. She is diabetic with last A1c of around 6. She denies any groin pain. She has had bilateral hip replacement surgeries more than 10 years ago. Ortho Exam General General: Yes no acute distress Neurologic: Yes alert and Yes oriented x3 Spine SPINE TESTING CERVICAL THORACIC LUMBAR Musculoskeletal Strength 0=absent - 5=normal Details: Examination of the lower back shows prior midline incision well-healed. There is mild right paraspinal tenderness. Neurologic motion of lower extremity shows 5 x 5 power normal shows normal sensations in all dermatomes. Passive straight leg raise test is positive on the right. Coding Level of Care Code Off vis,est,level 4 Diagnoses Lumbar radiculopathy M54.16 Other intervertebral disc degeneration, lumbar region M51.36 Spinal stenosis of lumbar region with neurogenic claudication M48.062 Time Spent (min) 35 Comment Modifier 57 Assessment and Plan Assessment and Plan (1) Lumbar radiculopathy: Status: Acute (2) Other intervertebral disc degeneration, lumbar region: Status: Acute (3) Spinal stenosis of lumbar region with neurogenic claudication: Status: Acute Plan I again reviewed her x-rays and MRI done recently. She has a large left paracentral extrusion of disc with superior migration at L5-S1. She has right L5-S1 foraminal stenosis. Right L5-S1 also shows far lateral extraforaminal significant disc bulge. She has postsurgical changes of right L4-5 laminotomy. Both L4-5 and L5-S1 show disc degeneration with vacuum phenomenon on extension view. L3-4 shows subtle spondylolisthesis. I explained to her the imaging findings in detail. I explained to her there is difficult to explain why she has a large extrusion on the left at L5-S1 but has significant symptoms in the right L5 dermatome. Possibility of right L5-S1 foraminal and extraforaminal compression as well as postsurgical scarring into the right L4-5 lateral recess may be source of the symptoms. Explained to her the difficulty of performing a good foraminal decompression with a decompression alone procedure. Fusion would likely be a possibility but due to her age and low bone density, there may be risks of hardware complications. Patient would like to proceed with decompression alone procedure. She will be scheduled for L4-5 revision right laminotomy, L5-S1 bilateral laminotomy discectomy and right foraminotomy. All risk benefits and alternatives were discussed in detail with the risks include but are not limited to infection, bleeding, hematoma formation, need for further surgery, need for fusion in the future, iatrogenic instability, inadequate decompression, persistent pain, CSF leak, DVT, pulm embolism, pneumonia, atelectasis, cardiopulmonary event. Patient understands and agrees to proceed with surgery. Consent was signed.
[2023-11-27] MEDS: Cefazolin 2 GM in 0.9% Normal Saline (100mL Bag) 100 ML IV ×3 (07:36→22:50)
--- NOTE | 2023-11-27 07:55 | RAD_ITS ---
PROCEDURE: L4-L5 laminectomy DATE OF EXAMINATION: November 27, 2023. INDICATION: Female, 73 years old. Laminectomy. FLUOROSCOPY TIME (if supplied): (4 seconds) minutes/seconds. 2.68 mGy. 2 images were submitted. RAD/Spine 1 View Any Level IMPRESSION: Intraoperative fluoroscopic services provided for laminectomy procedure. Electronically Signed: Jeyson Merritt MD at 13:33 EDT ,
[2023-11-27 08:34] LABS: Bedside Glucose 183 mg/dL (74-106)
[2023-11-27] MEDS: Dexamethasone IV Preserv Free 10 MG/ML VIAL OPERA.SITE (10:00)
--- NOTE | 2023-11-27 10:53 | PCM.OPRPT ---
Report of Operation Date of Procedure: 11/27/23 Description of Surgical Findings:: Preoperative diagnosis: L5-S1 left paracentral disc herniation, right foraminal stenosis Postoperative diagnosis: Same Name of procedure: L5-S1 bilateral laminotomy, microdiscectomy CPT 81012, modifier 50 Attending Surgeon: Dr. Dion Loyd Hazardous Substances Scientist surgeon: Dr. Stephen Feliciano Estimated blood loss: 50 mL Anesthesia: General Indications: Patient is a 73-year-old lady who presented with low back pain and severe right lower extremity radiation. MRI revealed L5-S1 Left paracentral disc herniation, and right foraminal stenosis. All options of treatment were discussed which included continued nonoperative treatment measures like rest physical therapy, injections. After prolonged nonsurgical treatment, patient requested surgical intervention for decompression. The large extruded disc on the left was thought to be moving the dural sac towards the left aggravating the right radiculopathy. Surgical decompression bilaterally at L5-S1 was discussed and recommended. All risks and benefits associated with the procedure were explained to the patient. The risks include but are not limited to infection, bleeding, injury to nerves and vessels, persistent paresthesia, incidental dural tear, recurrent disc herniation, spinal instability and need for fusion or other procedures in future, persistent pain, persistent weakness and numbness, etc. Procedure: The patient was identified in the preoperative holding suite using Unique patient identifiers. Skin was marked, consent was reviewed, and all questions were answered. The patient was then brought back to the operative room. A surgical timeout was performed to make sure correct procedure was being done on the correct patient and all operative room staff were on the same page. General endotracheal anesthesia was then given to the patient. The patient was then turned prone onto a Bakari table over a Jeffrey frame. The back was prepped and draped in usual fashion. Preoperative antibiotic was given. A final timeout was then again done just before starting the procedure. An 18-gauge spinal needle was inserted and was confirmed on C-arm lateral view to be at the L5-S1 level. An incision was then carried out approximately 2 inch length in the midline. Bovie was utilized to dissect through the subcutaneous tissue up to the fascia. The fascia was bovied at the spinous process. Subperiosteal dissection was carried out along both sides of the spinous process and the lamina. This dissection was stopped at the level of the medial capsule of the facet joint. Lateral edge of the pars was also identified. A [place] was then placed under the inferior edge of the lamina and a C-arm lateral view was repeated. The level was confirmed to be the L4-5 interspace. Further dissection inferiorly to expose the L5-S1 interspace was also performed. A Dewitt retractor of appropriate depth was then placed to provide retraction throughout the remainder of the surgery. A afia was then utilized to make a laminotomy window medial to the facet and lateral to the spinous process of the left. Care was taken to preserve at least 1 cm of bone from the lateral border of the pars. Once the bone was thinned out a Kerrison rongeur was utilized to complete the laminotomy. The ligamentum flavum was then removed with the help of pituitaries and Kerrison rongeurs. Ligamentum flavum in the lateral recess was then removed with Kerrison rongeur. The dura and traversing nerve root were then identified with the help of a [place] #4. A nerve root retractor was then utilized to retract the dura and the traversing nerve root medially. Disc fragments were then teased out with the help of a nerve hook and [place]. The nerve hook and Johanna were then used to probe inferiorly and superiorly and medially to tease out more disc fragments. once adequate decompression was obtained by removal of all loose disc fragments including the ones that were extruded, irrigation was done with normal saline. Attention was then directed towards the right side. Laminotomy and partial medial facetectomy was performed with the help of rongeur, osteotome and bur. Ligamentum flavum was removed and medial portions of the inferior supraventricular process were resected. Traversing nerve root was distracted and disc space was exposed. A cruciate incision over the annulus was placed and bent pituitaries were utilized to perform discectomy with removal of as much disc material going into the extraforaminal space towards the right. This can debulk the disc space and increased space in the foramen which was previously decompressed with a medial facetectomy. Johanna easily passed into both L5 and S1 foramina on the right and adequate decompression was achieved. Initial plan was to perform a revision laminotomy on the right at L4-5, but the adequacy of decompression through the L5-S1 interspace may just decide not to explore the scar tissue at L4-5. Thorough irrigation was again given with Irrisept. Hemostasis was achieved with bipolar and Floseal with cotton patties. 10 mg of preservative-free dexamethasone was then sprinkled over the traversing nerve root on both sides with [place] allowing some of the medication going into the right L5 foramen as well. A small piece of Gelfoam was then placed over the bony windows. The retractor was then removed. And closure was done in layers, 0 Vicryl for the deep fascia with #1 strata fix, 2-0 Vicryl for subcutaneous tissue, and 4-0 Monocryl for the skin. The deep fascial layer was closed in a watertight fashion with interrupted 0 Vicryl. The skin closure was done with chelsea. Silver Mepilex dressing was applied. The patient was then turned supine onto a hospital bed. The patient was extubated and taken to PACU in stable condition. The patient tolerated the procedure well and no complications occurred. Estimated blood loss for the entire surgery was 50 mL. No instrumentation was utilized in this case. No dural tear occurred in this case. I was present for the entirety of the case and performed the surgery myself. Surgeon: Dion Loyd loaders: Stephen Feliciano Admit VTE Documentation VTE Mechan Device Prophylaxis: SCD's Procedures Musculoskeletal [id number]: Other Procedure See Report
[2023-11-27] MEDS: Ondansetron 4 MG/2 ML Vial IV (11:58)
--- NOTE | 2023-11-27 12:49 | PCM.CONS.GEN ---
Assessment & Plan Assessment/Plan (1) Diabetes: (2) HTN (hypertension): PLAN: Plan #Right foraminal stenosis with left paracentral disc herniation of L5-S1 s/p L5-S1 bilateral laminotomy with microdiscectomy today is POD 0 pain management as per primary service incentive spirometry PT/OT on board fall precautions. #Type 2 diabetes mellitus on metformin and dulaglutide as well as pioglitazone. ISS. Accuchecks ACHS #Hypertension; on metoprolol and spironolactone as well as lisinopril #Hyperlipidemia: on statin #Depression: on wellbtrin and Duloxetine. #History of COPD: not in exacerbation. Breawthing treatment with bronchodilators. #Levothyroxine: on synthroid. DVT prophylaxis: as per primary service spine surery Thank you for the courtesy of the consult. Hospitalist service will continue to follow with you. # HPI Consult Data Date of Consult: 11/27/23 HPI Narrative Reason for Consultation: medical management HPI Narrative: KRISTIAN WREN, is a 73 F with a PMH as outlined including hypertension and type 2 diabetes mellitus who was admitted to the service of spine surgery. She was admitted o/a L5-S1 left paracentral disc herniation due to right foraminal stenosis. She had L5-S1 bilateral laminotomy and microdiscectomy. Hospitalist service was consulted for medical management. Patient seen and examined after surgery. She had no complaints. Pain was well controlled. She denied any fever, chills, nausea, shortness of breth, nausea or any other complaints. Review of systems is otherwie negative. Today is POD 0. [facility] Medical History (Updated 11/27/23 @ 15:[address] Nely Mast MD) Marijuana use Depression Syncope Dietary restriction BiPAP (biphasic positive airway pressure) dependence History of pain when walking Bilateral carpal tunnel syndrome Wears glasses Post-menopausal Alcohol use Thyroid disease Ambulates with cane Arthritis High cholesterol Back pain History of diverticulitis Gastric reflux Former smoker COPD (chronic obstructive pulmonary disease) History of edema History of stress test History of echocardiogram Hx of scarlet fever Hyperlipidemia Diabetes HTN (hypertension) Home Medications ?Medication ?Instructions ?Recorded ?Last Taken ?Type levothyroxine 50 mcg tablet 50 mcg PO DAILY 07/14/14 11/27/23 03:30 History metoprolol succinate 100 mg 100 mg PO DAILY 07/14/14 11/27/23 03:30 History tablet,extended release 24 hr rosuvastatin 10 mg tablet 10 mg PO QHS 07/14/14 11/26/23 23:00 History metformin 500 mg tablet,extended 500 mg PO QHS 04/24/17 11/26/23 23:00 History release 24 hr lansoprazole 30 mg capsule,delayed 30 mg PO QHS 07/05/17 11/26/23 23:00 History release (Prevacid) albuterol sulfate 90 mcg/actuation 1 puff inhalation Q4H PRN PRN COPD 10/05/20 11/27/23 01:00 History aerosol inhaler bupropion HCl 150 mg 24 hr tablet, 150 mg PO DAILY 10/05/20 11/27/23 03:30 History extended release (Wellbutrin XL) doxazosin 2 mg tablet (Cardura) 2 mg PO QHS 07/29/21 11/26/23 23:00 History dulaglutide 1.5 mg/0.5 mL 1.5 mg subcut TH 07/29/21 11/15/23 History subcutaneous pen injector (Trulicity) duloxetine 30 mg capsule,delayed 30 mg PO DAILY 07/29/21 11/26/23 08:00 History release (Cymbalta) spironolactone 25 mg tablet 25 mg PO DAILY 08/10/21 11/27/23 03:30 History (Aldactone) meclizine 25 mg chewable tablet 25 mg PO TID PRN dizziness #20 tabs 12/05/22 Unknown Rx (Antivert) cholecalciferol (vitamin D3) 50 50 mcg PO DAILY 03/01/23 11/26/23 23:00 History mcg (2,000 unit) capsule (Vitamin D3) pioglitazone 15 mg tablet (Actos) 15 mg PO DAILY 03/01/23 11/26/23 08:00 History lisinopril 40 mg tablet 20 mg PO DAILY 11/15/23 11/27/23 03:30 History tiotropium 2.5 mcg-olodaterol 2.5 2 puff inhalation QHS 11/15/23 11/26/23 23:00 History mcg/actuation mist for inhalation (Stiolto Respimat) Allergy/AdvReac Type Severity Reaction Status Date / Time Sulfa (Sulfonamide Allergy Mild Other - gi Verified 11/27/23 06:26 Antibiotics) upset amlodipine besylate (From Allergy Unknown Verified 11/27/23 06:26 [facility]) losartan (Losartan) Allergy Unknown Verified 11/27/23 06:26 Family History Grandfather Diabetes Surgical History Hx of toe surgery Hx of colonoscopy History of cardiac catheterization Hx of tonsillectomy H/O hernia repair History of back surgery H/O: hysterectomy H/O bilateral hip replacements Social History Smoking Status: Current some day smoker tobacco type: cigarettes Tobacco: How many years used: 40 alcohol intake: current alcohol intake frequency: a few times a week details: social substance use type: other details: Medical marijuana gummies caffeine: Yes what type of physical activity do you participate in: none seatbelt use: always do you feel safe at home: Yes additional social history: -retired ROS Review of Systems ROS Unobtainable: Denies due to encephalopathy Constitutional Constitutional: Denies anorexia, chills, fatigue, fever(s), malaise or weakness Eyes Eyes: Denies change in vision ENT HEENT: Denies dysphagia or headache(s) Cardiovascular Cardiovascular: Denies chest pain, dyspnea on exertion, edema, lightheadedness, orthopnea, palpitations, rapid heart rate or syncope Respiratory/Chest Respiratory/Chest: Denies cough, dyspnea, productive cough, shortness of breath at rest or shortness of breath with exertion Gastrointestinal Gastrointestinal: Denies abdominal pain, constipation, diarrhea, dyspepsia, nausea or vomiting Genitourinary Genitourinary: Denies burning urination, dysuria or nocturia Musculoskeletal Musculoskeletal: Denies arthralgias or back pain Neurologic Neurologic: Denies confusion, dizziness, focal weakness, headache(s) or numbness Psychiatric Psychiatric: Denies anxiety or depression Endocrine Endocrinology: Denies change in body appearance Physical Exam Const alert, oriented x3 and no apparent distress Constitutional Narrative: obese HEENT normocephalic, head/scalp atraumatic, moist oral mucous membranes and oropharynx normal Mouth: oral and palatal mucosa normal Eyes PERRL, EOMs intact bilaterally and conjunctivae normal Neck no lymphadenopathy and supple Resp normal respiratory effort, no retractions, no use of accessory muscles and clear to auscultation bilaterally Cardio regular rate, regular rhythm, S1 normal heart sound, S2 normal heart sound and no murmurs GI normal to inspection, nondistended, normoactive bowel sounds, soft to palpation, non-tender and non-distended Extremity normal to inspection, full ROM and no clubbing, cyanosis or edema Neuro oriented x3, CN's II-XII intact bilaterally, moves all extremities, no focal motor deficits and no sensory deficits noted Sensorium / Orientation: awake and alert Motor Exam: strength 5/5 throughout Psych affect normal Lab / Micro Data 11/16/23 11:40 11/16/23 11:40 Labs: Laboratory Results - last 24 hr 11/27/23 06:24: POC Glucose 183 H Charges/Coding Visit Charges Inpatient E&M: 95948 Subs Hosp L2
[2023-11-27] MEDS: Ensure Surgery 237 ML LIQUID PO ×2 (13:02→17:04)
[2023-11-27] MEDS: Methocarbamol 500 MG Tablet 1000 MG PO ×3 (14:25→21:36)
[2023-11-27 15:39] LABS: Bedside Glucose 113 mg/dL (74-106)
[2023-11-27 15:39] LABS: Bedside Glucose 94 mg/dL (74-106)
[2023-11-27] MEDS: Atorvastatin Calcium 20 MG Tablet PO (21:36)
[2023-11-27] MEDS: metFORMIN (XR) 500 MG Tablet PO (21:40)
[2023-11-27] MEDS: Senna/Docusate Sodium 1 Tablet 2 TABLET PO (21:40)
[2023-11-27] MEDS: Doxazosin 1 MG Tablet 2 MG PO (21:43)
[2023-11-28 00:05] VITALS: BMI 42.2
[2023-11-28 04:05] VITALS: BMI 42.2
[2023-11-28] MEDS: Acetaminophen 500 MG Tablet 1000 MG PO (05:22)
[2023-11-28] MEDS: Levothyroxine 50 MCG Tablet PO (05:22)
[2023-11-28 05:24] VITALS: BP 116/51; PULSE 82; RESP 16; TEMP 36.6; O2SAT 94
[2023-11-28] MEDS: Ensure Surgery 237 ML LIQUID PO (06:06)
[2023-11-28 06:30] VITALS: O2SAT 94
[2023-11-28 06:46] LABS: Hematocrit 29.5 % (37-47); Hemoglobin 9.4 g/dL (12.0-15.0); Mean Corp Hgb Conc 31.9 g/dL (32-36); Mean Corpuscular Hgb 31.4 pg (27.0-32.0); Mean Corpuscular Volume 98.7 fL (81-99); Mean Platelet Vol. 11.7 fl (6.2-12.0); Platelet Count 216 K/mm3 (150-450); RBC Distribution Width CV 13.2 % (11.6-14.6); RBC Distribution Width SD 47.8 fl (35.1-43.9); Red Blood Count 2.99 M/mm3 (4.2-5.4); White Blood Count 12.2 K/mm3 (4.4-11.0)
[2023-11-28 07:11] LABS: Anion Gap 7 (5-15); BUN 26 mg/dL (7-18); BUN/Creat Ratio 20.6 RATIO (10-20); Calcium,Total 8.7 mg/dL (8.5-10.1); Chloride 102 mmol/L (98-107); Creatinine, Serum 1.26 mg/dL (0.55-1.02); EST Glomerular Filtration Rate 44 mL/min (>60); Est Glom Filt Rate - Afr Amer 53 mL/min (>60); Estimated Creatinine Clearance 44.09 ml/min; Glucose 151 mg/dL (74-106); Potassium 4.1 mmol/L (3.5-5.1); Sodium Level 133 mmol/L (136-145)
--- NOTE | 2023-11-28 09:15 | CASEMGMT ---
MINH RUDD Assessment: Face to Face with pt for initial transition planning/care coordination assessment. MINH RUDD introduced self and role at [facility], pt voices understanding and consents to assessment. Pt is A&O x4 and answers all questions appropriately at this time. Pt sitting up in chair in no distress. Care providers, pharmacy, and demographics verified/updated. Admitting Dx: Lumbar L5-S1 laminectomy, disc PCP:Andrea Specialists:dragan Loyd Pharmacy: [facility] Retail Insurance: [email or web address] [facility] Prescription Benefit: yes LNOK: Mallorie Linaressh, dtr Living Arrangements: Pt lives alone in a single story home with 3 steps to enter with bilat rails. Pt reports she is I in ADL's and IADL's. Pt dtr to order groceries for pt in the future and pt dtr will stay with pt through the weekend for assistance. Pt denies concerns at home. Transportation: Pt drives self and denies concerns with transportation. Pt dtr will transport her until pt can drive again. DME:cane, walker- pt dtr getting wheels for the walker; walk in shower with bench, CPAP HHC/SNF: Denies hx of Pt states no concerns with going home at time of dc. Pt states no further concerns/needs. CM to follow. Advised pt to ask CM if any further question/concerns/needs arise, voices understanding. Pt Goal: Home Plan: Home Jno W[facility] CM
--- NOTE | 2023-11-28 10:17 | PN_ITS ---
Subjective Subjective Patient seen and examined. She had no active complaints and had an uneventful night. Review of systems otherwise negative. She has remained hemodynamically stable. Objective Data Objective Data Vital Signs: Vital Signs Temp Pulse Resp BP Pulse Ox O2 Del Method O2 Flow Rate 97.8 F 82 16 116/51 L 94 Room Air 4 11/28/23 05:24 11/28/23 05:24 11/28/23 05:24 11/28/23 05:24 11/28/23 06:30 11/28/23 06:30 11/27/23 13:55 Oxygen Flow Rate (L/min) 4 Oxygen Delivery Method Room Air Weight: 229 lb 0.964 oz Body Mass Index (BMI) 42.1 Intake & Output: Intake and Output for Last 24 Hours 11/26/23 11/27/23 11/28/23 23:59 23:59 23:59 Intake Total 1538.25 / 1538.25 110 / 110 Balance 1538.25 / 1538.25 110 / 110 Lab / Micro Data 11/28/23 06:17 11/28/23 06:17 Labs: Laboratory Results - last 24 hr 11/27/23 08:31: POC Glucose 94 11/27/23 10:27: POC Glucose 113 H 11/28/23 06:17: WBC 12.2 H, RBC 2.99 L, Hgb 9.4 L, Hct 29.5 L, MCV 98.7, MCH 31.4, MCHC 31.9 L, RDW Std Deviation 47.8 H, RDW Coeff of Lay 13.2, Plt Count 216, MPV 11.7, Sodium 133 L, Potassium 4.1, Chloride 102, Carbon Dioxide 24.0, Anion Gap 7, BUN 26 H, Creatinine 1.26 H, Estim Creat Clear Calc 44.09, Est GFR (MDRD) Af Amer 53 L, Est GFR (MDRD) Non-Af 44 L, BUN/Creatinine Ratio 20.6 H, G lucose 151 H, Calcium 8.7 Micro: Microbiology 11/16/23 11:40 Swab (Method) Nasal Screen MRSA/MSSA - Final Radiography Diagnostic Testing: Radiology Impression Spine X-Ray 11/27/23 07:55 IMPRESSION: Intraoperative fluoroscopic services provided for laminectomy procedure. Electronically Signed: Jeyson Merritt MD at 13:33 EDT , Physical Exam Const alert, oriented x3 and no apparent distress Constitutional Narrative: obese General Appearance: cooperative and well developed HEENT normocephalic, head/scalp atraumatic, moist oral mucous membranes and oropharynx normal Eyes PERRL, EOMs intact bilaterally and conjunctivae normal Neck no lymphadenopathy and supple Resp normal respiratory effort, normal air movement, no retractions, no use of accessory muscles and clear to auscultation bilaterally Cardio regular rate, regular rhythm, S1 normal heart sound, S2 normal heart sound and no murmurs GI normal to inspection, nondistended, normoactive bowel sounds, soft to palpation, non-tender and non-distended Extremity normal to inspection, full ROM, normal capillary refill and no clubbing, cyanosis or edema General Extremity: no tenderness to palpation of joints or extremities Skin Skin Narrative: intact dressing over surgical site on lower back General Skin Exam: no breakdown Neuro oriented x3, CN's II-XII intact bilaterally, moves all extremities, no focal motor deficits and no sensory deficits noted Sensorium / Orientation: awake and alert Motor Exam: strength 5/5 throughout Psych thought process normal, cooperative and affect normal Appearance: appropriate Assessment & Plan Assessment/Plan (1) Diabetes: (2) HTN (hypertension): PLAN: Plan #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 * Pain is well-controlled. * #Type 2 diabetes mellitus * on metformin and dulaglutide as well as pioglitazone. * ISS. Accuchecks ACHS * #Hypertension; on metoprolol and spironolactone as well as lisinopril #Hyperlipidemia: on statin #Depression: on wellbutrin and Duloxetine. #History of COPD: not in exacerbation. Breawthing treatment with bronchodilators. #Levothyroxine: on synthroid. DVT prophylaxis: as per primary service spine surgery Charges/Coding Visit Charges Inpatient E&M: 74611 Subs Hosp L2
[2023-11-28 10:23] VITALS: BP 111/52; PULSE 82; RESP 16; TEMP 37.1; O2SAT 98
[2023-11-28] MEDS: Spironolactone 25 MG Tablet PO (10:34)
[2023-11-28] MEDS: Pioglitazone Hydrochloride 15 MG Tablet PO (10:34)
[2023-11-28] MEDS: Pantoprazole Sodium 40 MG Tablet PO (10:35)
[2023-11-28] MEDS: DULoxetine Hcl 30 MG Capsule PO (10:35)
[2023-11-28] MEDS: Methocarbamol 500 MG Tablet 1000 MG PO (10:35)
[2023-11-28 10:36] VITALS: PULSE 82
[2023-11-28] MEDS: Metoprolol(XL)Succ 100 MG Tablet PO (10:36)
[2023-11-28] MEDS: Cholecalciferol (VIT D3) 25 MCG TABLET (1,000 UNITS) 50 MCG PO (10:36)
[2023-11-28] MEDS: Lisinopril 20 MG Tablet PO (10:36)
[2023-11-28] MEDS: buPROPion (XL) 150 MG TABLET.XL PO (10:36)
[2023-11-28] MEDS: Senna/Docusate Sodium 1 Tablet 2 TABLET PO (10:44)
--- NOTE | 2023-11-28 12:00 | CASEMGMT ---
Met with patient to complete MACARIO form. MACARIO form explained to patient who voiced understanding and signed form. Original form placed in pt?s chart and copy provided to patient. Colleen Gill, Discharge Planning Asst
--- NOTE | 2023-11-28 13:12 | PN.ORTHO_ITS ---
Subjective Subjective Postop day 1 status post L5-S1 bilateral laminotomy decompression discectomy foraminotomy. Patient doing well. Pain well-controlled. Says that majority of her right lower extremity radiation has resolved except for occasional right hip and dorsum of the foot pain. Has been ambulating well. Objective Data Objective Data Vital Signs: Vital Signs Temp Pulse Resp BP Pulse Ox O2 Del Method O2 Flow Rate 98.7 F 82 16 111/52 L 98 Room Air 4 11/28/23 10:23 11/28/23 10:36 11/28/23 10:23 11/28/23 10:23 11/28/23 10:23 11/28/23 10:23 11/27/23 13:55 Oxygen Flow Rate (L/min) 4 Oxygen Delivery Method Room Air Weight: 229 lb 0.964 oz Body Mass Index (BMI) 42.1 Intake & Output: Intake and Output for Last 24 Hours 11/26/23 11/27/23 11/28/23 23:59 23:59 23:59 Intake Total 1538.25 / 1538.25 110 / 110 Balance 1538.25 / 1538.25 110 / 110 Lab / Micro Data 11/28/23 06:17 11/28/23 06:17 Labs: Laboratory Results - last 24 hr 11/27/23 08:31: POC Glucose 94 11/27/23 10:27: POC Glucose 113 H 11/28/23 06:17: WBC 12.2 H, RBC 2.99 L, Hgb 9.4 L, Hct 29.5 L, MCV 98.7, MCH 31.4, MCHC 31.9 L, RDW Std Deviation 47.8 H, RDW Coeff of Lay 13.2, Plt Count 216, MPV 11.7, Sodium 133 L, Potassium 4.1, Chloride 102, Carbon Dioxide 24.0, Anion Gap 7, BUN 26 H, Creatinine 1.26 H, Estim Creat Clear Calc 44.09, Est GFR (MDRD) Af Amer 53 L, Est GFR (MDRD) Non-Af 44 L, BUN/Creatinine Ratio 20.6 H, G lucose 151 H, Calcium 8.7 Micro: Microbiology 11/16/23 11:40 Swab (Method) Nasal Screen MRSA/MSSA - Final Radiography Diagnostic Testing: Radiology Impression Spine X-Ray 11/27/23 07:55 IMPRESSION: Intraoperative fluoroscopic services provided for laminectomy procedure. Electronically Signed: Jeyson Merritt MD at 13:33 EDT , Physical Exam Narrative Dressing?CDI. Neurologic evaluation of lower extremity shows 5 x 5 power normal shows normal sensations in all dermatomes. Assessment & Plan Assessment/Plan (1) Status post lumbar laminectomy: PLAN: Plan Postop day 1 status post lumbar decompression surgery. Patient doing well. PT cleared. Okay to discharge home and follow-up in 2 weeks for staple removal. No lifting bending twisting.
--- NOTE | 2023-11-28 14:22 | CASEMGMT ---
Social Work SW met with pt to discuss advance directives.? Pt confirms she has completed a living will and health care POA naming Mallorie Hatch, daughter.? Pt notified that documents are not on file at [facility] and SW requested they be brought in for scanning into the EMR.? AKHIL Bermeo
--- NOTE | 2023-11-28 14:36 | PHA.DC_ITS ---
Pharmacy [facility] has performed discharge medication reconciliation and counseling for this patient. 1. ACETAMINOPHEN 500MG PO Q6 X 7 DAYS 2. METHOCARBAMOL 750MG PO TID PRN SPASMS/PAIN 3. OXYCODONE 2.5-5MG PO Q6H PRN PAIN 4. SENNA/DOCUSATE 2T PO BID PRN CONSTIPATION The patient's discharge medication list was reviewed for discrepancies and discrepancies were resolved. The patient was counseled on the following discharge medications and changes in medications for homegoing were reviewed. The Reason for Use, instructions for use, and potential side effects were reviewed for all new medications. The patient's questions regarding all of their medications were answered. The patient was able to verbally demonstrate an understanding of their discharge medications. Patient counseled by instructor adjunct pharmacy technicianSydney. Medications at Discharge Home Medications levothyroxine 50 mcg tablet 50 mcg PO DAILY 07/14/14 metoprolol succinate 100 mg tablet,extended release 24 hr 100 mg PO DAILY 07/14/14 rosuvastatin 10 mg tablet 10 mg PO QHS 07/14/14 metformin 500 mg tablet,extended release 24 hr 500 mg PO QHS 04/24/17 lansoprazole 30 mg capsule,delayed release (Prevacid) 30 mg PO QHS 07/05/17 albuterol sulfate 90 mcg/actuation aerosol inhaler 1 puff inhalation Q4H PRN PRN COPD 10/05/20 bupropion HCl 150 mg 24 hr tablet, extended release (Wellbutrin XL) 150 mg PO DAILY 10/05/20 doxazosin 2 mg tablet (Cardura) 2 mg PO QHS 07/29/21 dulaglutide 1.5 mg/0.5 mL subcutaneous pen injector (Trulicity) 1.5 mg subcut TH 07/29/21 duloxetine 30 mg capsule,delayed release (Cymbalta) 30 mg PO DAILY 07/29/21 spironolactone 25 mg tablet (Aldactone) 25 mg PO DAILY 08/10/21 meclizine 25 mg chewable tablet (Antivert) 25 mg PO TID PRN dizziness #20 tabs 12/05/22 cholecalciferol (vitamin D3) 50 mcg (2,000 unit) capsule (Vitamin D3) 50 mcg PO DAILY 03/01/23 pioglitazone 15 mg tablet (Actos) 15 mg PO DAILY 03/01/23 lisinopril 40 mg tablet 20 mg PO DAILY 11/15/23 tiotropium 2.5 mcg-olodaterol 2.5 mcg/actuation mist for inhalation (Stiolto Respimat) 2 puff inhalation QHS 11/15/23 acetaminophen 500 mg tablet 500 mg PO Q6H 7 days #28 tabs 11/28/23 methocarbamol 500 mg tablet 750 mg (1.5 x 500 mg) PO TID PRN Pain/spasms 7 days #28 tabs 11/28/23 oxycodone 5 mg tablet 2.5 - 5 mg (0.5 - 1 x 5 mg) PO Q6H PRN pain 7 days #28 tabs 11/28/23 sennosides 8.6 mg-docusate sodium 50 mg tablet (Stool Softener-Stimulant Laxative) 2 tab PO BID PRN constipation 7 days #28 tabs 11/28/23
== END 2023-11-28 14:29 | disposition home or self-care (01) ==
LOC: ACINP 11:38 → SDC 11:39 → MS3 11:39
PROVIDERS: Anesthesiology; Admitting Provider Orthopaedic Surgery Orthopaedic Surgery of the Spine; PCP Family Medicine; Referring Provider Orthopaedic Surgery Orthopaedic Surgery of the Spine; Visit Provider Orthopaedic Surgery Orthopaedic Surgery of the Spine
PROC: (CPT 63030; principal; 2023-11-27 07:00)
DX: M51.17 Intervertebral disc disorders with radiculopathy, lumbosacral region (principal); J44.9 Chronic obstructive pulmonary disease, unspecified; E11.9 Type 2 diabetes mellitus without complications; Z79.84 Long term (current) use of oral hypoglycemic drugs; E78.00 Pure hypercholesterolemia, unspecified; M48.07 Spinal stenosis, lumbosacral region; M51.16 Intervertebral disc disorders with radiculopathy, lumbar region; I10 Essential (primary) hypertension; F17.210 Nicotine dependence, cigarettes, uncomplicated; M48.062 Spinal stenosis, lumbar region with neurogenic claudication; Z79.899 Other long term (current) drug therapy; K21.9 Gastro-esophageal reflux disease without esophagitis; F32.A Depression, unspecified; E07.9 Disorder of thyroid, unspecified; Z79.890 Hormone replacement therapy
CPT/HCPCS: 63030; 00630; 36415; 72020; 76000; 80048; 82962; 83036; 83735; 84443; 85025; 85027; 86703; 86706; 86708; 86803; 86850; 86900; 86901; 87077; 87081; 88304; 93005; 94668; 96365; 96366; 96375; 97162; 97166; 97530; 99221; 99406; J7120; G0378; J2405

== ENCOUNTER → 2024-01-14 | Outpatient (CLI) | payer MEDICARE, SELFPAY ==
[2024-01-14 15:36] LABS: Hematocrit 35.7 % (37-47); Hemoglobin 11.4 g/dL (12.0-15.0); Mean Corp Hgb Conc 31.9 g/dL (32-36); Mean Corpuscular Hgb 30.9 pg (27.0-32.0); Mean Corpuscular Volume 96.7 fL (81-99); Mean Platelet Vol. 11.2 fl (6.2-12.0); Platelet Count 220 K/mm3 (150-450); RBC Distribution Width CV 14.5 % (11.6-14.6); RBC Distribution Width SD 50.7 fl (35.1-43.9); Red Blood Count 3.69 M/mm3 (4.2-5.4); White Blood Count 7.7 K/mm3 (4.4-11.0)
[2024-01-14 16:23] LABS: ALB/GLOB Ratio 0.9 RATIO (0.9-2.4); AST(SGOT) 12 U/L (15-37); Alanine Aminotransfer ALT/SGPT 24 U/L (13-56); Albumin, Serum 3.5 g/dL (3.2-5.0); Alkaline Phosphatase 127 U/L (45-117); Anion Gap 7 (5-15); BUN 19 mg/dL (7-18); BUN/Creat Ratio 18.1 RATIO (10-20); CRP < 2.90 mg/L (0.0-3.0); Calcium,Total 9.2 mg/dL (8.5-10.1); Chloride 103 mmol/L (98-107); Creatinine, Serum 1.05 mg/dL (0.55-1.02); EST Glomerular Filtration Rate 55 mL/min (>60); Est Glom Filt Rate - Afr Amer 66 mL/min (>60); Ferritin 106 ng/mL (8-252); Globulin 3.7 g/dL (2.2-4.2); Glucose 142 mg/dL (74-106); Iron 73 ug/dL (50-170); Potassium 4.1 mmol/L (3.5-5.1); Protein, Total 7.2 g/dL (6.4-8.2); Sodium Level 136 mmol/L (136-145); Thyroid Stim Hormone (TSH) 2.08 uIU/mL (0.358-3.74); Uric Acid 7.2 mg/dL (2.6-6.0)
== END | disposition home or self-care (01) ==
LOC: MFPLAB 11:13
PROVIDERS: PCP Family Medicine; Visit Provider Family Medicine
DX: M10.9 Gout, unspecified (principal); E11.22 Type 2 diabetes mellitus with diabetic chronic kidney disease; E11.59 Type 2 diabetes mellitus with other circulatory complications; D64.9 Anemia, unspecified; R79.82 Elevated C-reactive protein (CRP); N18.9 Chronic kidney disease, unspecified; R60.0 Localized edema
CPT/HCPCS: 36415; 80053; 82728; 83540; 83970; 84443; 84550; 85027; 86140

== ENCOUNTER → 2024-04-15 | Outpatient (CLI) | payer MEDICARE, SELFPAY ==
[2024-04-15 15:52] LABS: Anion Gap 1 (5-15); BUN 22 mg/dL (7-18); Calcium,Total 9.3 mg/dL (8.5-10.1); Chloride 103 mmol/L (98-107); EST Glomerular Filtration Rate 52 mL/min (>60); Est Glom Filt Rate - Afr Amer 62 mL/min (>60); Glucose 121 mg/dL (74-106); Sodium Level 137 mmol/L (136-145)
== END | disposition home or self-care (01) ==
LOC: MTLAB 11:19
PROVIDERS: PCP Family Medicine; Referring Provider Family Medicine; Visit Provider Family Medicine
DX: R60.0 Localized edema (principal)
CPT/HCPCS: 36415; 80048

== ENCOUNTER → 2024-04-24 | Outpatient (CLI) | payer MEDICARE, SELFPAY ==
--- NOTE | 2024-04-24 13:48 | ECHOCS_ITS ---
Reason For Study: EDEMA Procedure This was a 2D Doppler, Color Flow transthoracic echocardiogram. The study was technically difficult. Contrast injection was performed. Exam performed in department. Left Ventricle Normal LV size. Mild concentric left ventricular hypertrophy. The left ventricular ejection fraction is 65 %. Diastolic function is indeterminate. Right Ventricle Normal right ventricle. Atria The left atrium is mildly enlarged. Normal right atrium. Mitral Valve Trivial mitral valve insufficiency. Tricuspid Valve Trivial tricuspid valve insufficiency. Unable to estimate RV systolic pressure due to insufficient tricuspid regurgitant envelope. Aortic Valve The aortic valve is not well visualized in the short axis view. There is no aortic stenosis. No aortic valve insufficiency. Pulmonic Valve The pulmonic valve is not well visualized. Great Vessels Normal sized aortic root. Pericardium/Pleural Trivial pericardial effusion. Medication 22 gauge I.V. with prn adaptor inserted into right arm. Diluted definity 2ml given slow IV push to enhance endocardial definition. MMode/2D Measurements & Calculations LVIDd: 4.4 cm IVSd: 1.0 cm LVOT diam: 1.9 cm LVIDs: 2.6 cm LVPWd: 1.2 cm FS: 39.7 % LVOT area: 2.9 cm2 asc Aorta Diam: 3.5 cm LAV(MOD-bp): 53.0 ml LVAd ap4: 33.8 cm2 LAV(MOD-bp) Indexed: 26.7 ml/m2 LVLd ap4: 8.7 cm LAV(MOD-sp2): 40.0 ml EDV(MOD-sp4): 108.6 ml LAV(MOD-sp4): 64.2 ml EDV(sp4-el): 111.7 ml LVAs ap4: 18.9 cm2 LVLs ap4: 6.7 cm ESV(MOD-sp4): 45.9 ml ESV(sp4-el): 45.7 ml EF(MOD-sp4): 57.8 % EF(sp4-el): 59.1 % SV(MOD-sp4): 62.7 ml SV(sp4-el): 66.0 ml LA A4 area: 21.7 cm2 SI(MOD-sp4): 31.6 ml/m2 RA A4 area: 12.1 cm2 Time Measurements MV dec time: 0.08 sec Doppler Measurements & Calculations MV E max alfredo: 78.9 cm/sec Lat Peak E' Alfredo: 8.1 cm/sec Med Peak E' Alfredo: 8.5 cm/sec MV A max alfredo: 105.7 cm/sec E/E' lat: 9.8 E/E' med: 9.2 MV E/A: 0.75 MV V2 max: 108.1 cm/sec MV dec slope: 1003 cm/sec2 Ao V2 max: 172.4 cm/sec MV max P.7 mmHg Ao max P.9 mmHg MV V2 mean: 74.4 cm/sec Ao V2 mean: 119.8 cm/sec MV mean P.4 mmHg Ao mean P.4 mmHg MV V2 VTI: 28.8 cm Ao V2 VTI: 39.5 cm MVA(VTI): 2.9 cm2 AV (velocity ratio): 0.73 ELIN(I,D): 2.1 cm2 ELIN(V,D): 2.2 cm2 LV V1 max: 128.5 cm/sec SV(LVOT): 84.4 ml PA V2 max: 111.3 cm/sec LV V1 max P.6 mmHg LV V1 mean P.5 mmHg LV V1 mean: 101.9 cm/sec LV V1 VTI: 28.7 cm ECHO/Echo Complete W/ Contrast Interpretation Summary Mild concentric left ventricular hypertrophy. The left ventricular ejection fraction is 65 %. Diastolic function is indeterminate. The left atrium is mildly enlarged. The study was technically difficult. Ordering Physician: Scott Mendez Referring Physician: Scott Menedz Performed By: Elvia Edmonds and Student
== END | disposition home or self-care (01) ==
PROVIDERS: PCP Family Medicine; Referring Provider Family Medicine; Visit Provider Family Medicine
DX: R60.0 Localized edema (principal)
CPT/HCPCS: 93306; Q9957; A4216; C8929

== ENCOUNTER → 2024-05-21 | Outpatient (CLI) | payer MEDICARE, SELFPAY ==
[2024-05-21 18:29] LABS: Anion Gap 8 (5-15); BUN 18 mg/dL (7-18); BUN/Creat Ratio 15.9 RATIO (10-20); Calcium,Total 9.4 mg/dL (8.5-10.1); Chloride 102 mmol/L (98-107); Creatinine, Serum 1.13 mg/dL (0.55-1.02); EST Glomerular Filtration Rate 50 mL/min (>60); Est Glom Filt Rate - Afr Amer 61 mL/min (>60); Glucose 123 mg/dL (74-106); Sodium Level 139 mmol/L (136-145)
== END | disposition home or self-care (01) ==
LOC: MFPLAB 15:51
PROVIDERS: PCP Family Medicine; Referring Provider Family Medicine; Visit Provider Family Medicine
DX: E11.59 Type 2 diabetes mellitus with other circulatory complications (principal)
CPT/HCPCS: 36415; 80048

== ENCOUNTER 2024-06-16 13:15 | Emergency (ER) | payer MEDICARE, SELFPAY ==
[2024-06-16 13:19] VITALS: BP 132/58; PULSE 90; RESP 18; TEMP 35.9; O2SAT 97; BMI 43.2
--- NOTE | 2024-06-16 16:07 | VDLE_ITS ---
Reason For Study: Pain LLE RIGHT LEFT CFV is compressible, spontaneous, phasic, GSV is normal. competent and demonstrates normal CFV is compressible, spontaneous, phasic, augmentation. competent, and demonstrates normal Procedure augmentation. This is a venous duplex using B-mode, color FV is compressible, spontaneous, phasic, flow and spectral Doppler. competent and demonstrates normal Exam performed portable in ED. augmentation. A preliminary report was called and/or faxed POP V is compressible, spontaneous, phasic, to Dr. Powell. competent and demonstrates normal augmentation. T/P Trunk is compressible. PTV is compressible. LT PerV is compressible. VL/Venous Duplex US, Unilateral Interpretation Summary Deep veins of the left lower extremity are patent and compressible segmentally. There is no evidence of left lower extremity deep vein thrombosis. The left great saphenous vein vanessa ears patent and compressible segmentally. Ordering Physician: Barney Powell Referring Physician: Scott Mendez Performed By: Jerri Hong RDCS, RVT
[2024-06-16 16:08] VITALS: O2SAT 97
--- NOTE | 2024-06-16 16:08 | EKG12_ITS ---
Test Reason : Blood Pressure : */* mmHG Vent. Rate : 75 BPM Atrial Rate : 75 BPM P-R Int : 174 ms QRS Dur : 74 ms QT Int : 384 ms P-R-T Axes : 71 8 50 degrees QTcB Int : 428 ms Normal sinus rhythm Normal ECG Confirmed by ANNABEL REDD, HANG ([id number]), editor dictionary SUE LIMA ([id number]) on 06/17/2024 7:59:46 AM Referred By: Confirmed By: HANG JIN MD
--- NOTE | 2024-06-16 16:10 | RAD_ITS ---
STUDY: X-RAY CHEST REASON FOR EXAM: Female, 74 years old. sob TECHNIQUE: PA and lateral COMPARISON: August 27, 2023 FINDINGS: The lungs are clear and expanded. There is no demonstrated pleural abnormality. Normal size heart. Normal mediastinum and cindy. Normal visualized pulmonary arteries. Normal visualized aortic arch and descending thoracic aorta. Dorsal spine and shoulders demonstrate degenerative changes. Normal visualized ribs, and clavicles There is no demonstrated abnormality of the visualized soft tissue structures of the upper abdomen. RAD/Chest PA and Lateral IMPRESSION: No acute cardiopulmonary pathology Electronically Signed: Terrence Castro MD at 16:29 EST ,
--- NOTE | 2024-06-16 16:15 | EDS_ITS ---
HPI History of Present Illness Chief Complaint: Edema Narrative Narrative: Patient is a 74-year-old female with past medical history of marijuana use, depression, hypercholesteremia, GERD, COPD not on oxygen at home, diabetes, hypertension, hyperlipidemia who presents to the emergency department chief complaint of bilateral lower extremity swelling. Patient states that she has been dealing with her bilateral lower extremity swelling for quite some time however notes that for the past week it has significantly worsened. She states that she has been following up with her doctor every 3 months. She notes that her legs for the past week has had increased swelling and states that her left lower extremity is more swollen than the right. Patient denies any blood thinner medication denies any history of blood clots denies any recent travel history. Patient states that she has had increasing shortness of breath recently more than her baseline. [facility] Medical History Bilateral shoulder pain Marijuana use Depression Syncope Dietary restriction BiPAP (biphasic positive airway pressure) dependence History of pain when walking Bilateral carpal tunnel syndrome Wears glasses Post-menopausal Alcohol use Thyroid disease Ambulates with cane Arthritis High cholesterol Back pain History of diverticulitis Gastric reflux Former smoker COPD (chronic obstructive pulmonary disease) History of edema History of stress test History of echocardiogram Hx of scarlet fever Hyperlipidemia Diabetes HTN (hypertension) Home Medications ?Medication ?Instructions ?Recorded ?Last Taken ?Type levothyroxine 50 mcg tablet 50 mcg PO DAILY 07/14/14 11/27/23 03:30 History metoprolol succinate 100 mg 100 mg PO DAILY 07/14/14 11/27/23 03:30 History tablet,extended release 24 hr rosuvastatin 10 mg tablet 10 mg PO QHS 07/14/14 11/26/23 23:00 History metformin 500 mg tablet,extended 500 mg PO QHS 04/24/17 11/26/23 23:00 History release 24 hr lansoprazole 30 mg capsule,delayed 30 mg PO QHS 07/05/17 11/26/23 23:00 History release (Prevacid) albuterol sulfate 90 mcg/actuation 1 puff inhalation Q4H PRN PRN COPD 10/05/20 11/27/23 01:00 History aerosol inhaler bupropion HCl 150 mg 24 hr tablet, 150 mg PO DAILY 10/05/20 11/27/23 03:30 History extended release (Wellbutrin XL) doxazosin 2 mg tablet (Cardura) 2 mg PO QHS 07/29/21 11/26/23 23:00 History dulaglutide 1.5 mg/0.5 mL 1.5 mg subcut TH 07/29/21 11/15/23 History subcutaneous pen injector (Trulicity) duloxetine 30 mg capsule,delayed 30 mg PO DAILY 07/29/21 11/26/23 08:00 History release (Cymbalta) spironolactone 25 mg tablet 25 mg PO DAILY 08/10/21 11/27/23 03:30 History (Aldactone) cholecalciferol (vitamin D3) 50 50 mcg PO DAILY 03/01/23 11/26/23 23:00 History mcg (2,000 unit) capsule (Vitamin D3) pioglitazone 15 mg tablet (Actos) 15 mg PO DAILY 03/01/23 11/26/23 08:00 History lisinopril 40 mg tablet 20 mg PO DAILY 11/15/23 11/27/23 03:30 History tiotropium 2.5 mcg-olodaterol 2.5 2 puff inhalation QHS 11/15/23 11/26/23 23:00 History mcg/actuation mist for inhalation (Stiolto Respimat) acetaminophen 500 mg tablet 500 mg PO Q6H 7 days #28 tabs 11/28/23 Unknown Rx sennosides 8.6 mg-docusate sodium 2 tab PO BID PRN constipation 7 11/28/23 Unkno wn Rx 50 mg tablet (Stool days #28 tabs Softener-Stimulant Laxative) doxycycline hyclate 100 mg capsule 100 mg PO BID 5 days #10 caps 06/16/24 Unknown Rx prednisone 50 mg tablet 50 mg PO DAILY 5 days #5 tabs 06/16/24 Unknown Rx Allergy/AdvReac Type Severity Reaction Status Date / Time Sulfa (Sulfonamide Allergy Mild Other - gi Verified 06/16/24 13:19 Antibiotics) upset amlodipine besylate (From Allergy Unknown Verified 06/16/24 13:19 Norvasc) losartan (Losartan) Allergy Unknown Verified 06/16/24 13:19 Family History Grandfather Diabetes Surgical History Hx of toe surgery Hx of colonoscopy History of cardiac catheterization Hx of tonsillectomy H/O hernia repair History of back surgery H/O: hysterectomy H/O bilateral hip replacements Social History household members: none current occupational status: retired Smoking Status: Current some day smoker tobacco type: cigarettes Tobacco: How many years used: 40 alcohol intake: current alcohol intake frequency: a few times a week details: social substance use type: other details: Medical marijuana gummies caffeine: Yes what type of physical activity do you participate in: none seatbelt use: always do you feel safe at home: Yes additional social history: -retired ROS ROS ED ROS Narrative Constitutional: Denies any fevers, chills, headaches malaise, dizziness Eyes: Denies change in vision double vision blurry Cardiovascular: Did not denies chest pain or palpitations Respiratory: Complains of cough and shortness of breath as noted above Abdomen: Denies abdominal pain nausea vomit diarrhea : Denies any urinary symptoms Neurological: Denies numbness, weakness, tingling Musculoskeletal: Complains of bilateral lower extremity swelling denies back pain Skin: Denies rashes or lesions EXAM Physical Exam Narrative Exam Narrative: General: Patient lying in bed rest comfortably did not appear to be in acute distress Head: Atraumatic, normocephalic Eyes: PERRL body, EOMI bilateral, no conjunctival injection noted Neck: Soft, supple, trachea midline Cardiovascular: regular rate and rhythm Respiratory: Patient has diminished breath sounds bilaterally Abdomen: Soft, nondistended, nontender to palpation Extremities: Patient has 1+ pitting edema in the bilateral lower extremities, +5/5 strength noted in the bilateral upper and lower extremities Neurological: Patient following commands and that she was at [facility] years 2023 Skin: Warm, dry, intact Const Vital Signs: 06/16/24 13:19 06/16/24 14:55 06/16/24 16:08 Temperature 96.7 F L Temperature Source Temporal Pulse Rate 90 Respiratory Rate 18 Respiratory Effort Short of Breath Respiratory Pattern Normal Blood Pressure 132/58 H Blood Pressure Mean 82 Pulse Ox 97 97 Oxygen Delivery Method Room Air Room Air 06/16/24 16:38 06/16/24 17:23 06/16/24 18:36 Temperature 97.9 F Temperature Source Pulse Rate 78 89 89 Respiratory Rate 17 12 12 Respiratory Effort Respiratory Pattern Normal Blood Pressure 135/58 H 135/58 H Blood Pressure Mean 83 83 Pulse Ox 99 99 Oxygen Delivery Method Room Air MDM MDM MDM Narrative Medical decision making narrative: Patient is a 74-year-old female who presented to the emerged part with chief complaint of increasing bilateral lower extremity swelling, shortness of breath, cough. Patient will have a workup performed here on the differential diagnose includes but not limited to CHF, pneumonia, ACS, upper respiratory infection second viral etiology, DVT. Once workup is obtained reviewed she will be reevaluated. Patient CBC reviewed and showed no evidence leukocytosis white blood count normal at 10.3, hemoglobin 10.9, platelet count was noted be normal at 276. Patient's sodium normal at 137, potassium normal at 4, creatinine was 1.23. Patient's troponin normal at 8, EKG reviewed showed normal sinus rhythm with a rate of 75 bpm, proBNP normal at 20.3. Patient chest x-ray reviewed by myself and by radiology showed no acute cardiopulmonary processes. Patient's left lower extremity Doppler was negative for DVT Patient ambulated here well in the emergency department no evidence hypoxia. States that she feels better she would like to go home. She inquired about the lower extremity swelling advised her that she could have venous insufficiency and should see a vascular surgeon. Family bedside is agreeable with this. Patient be given prescription for prednisone and doxycycline she states that she has plenty of her inhalers at home. She is advised return with worsening symptoms or concerns. All question concerns answered she is discharged home in stable condition. Lab Data Labs: Laboratory Results - last 24 hr 06/16/24 14:59 WBC 10.3 RBC 3.31 L Hgb 10.9 L Hct 33.8 L MCV 102.1 H MCH 32.9 H MCHC 32.2 RDW Std Deviation 54.4 H RDW Coeff of Lay 14.6 Plt Count 276 MPV 11.7 Immature Gran % (Auto) 0.800 Neut % (Auto) 63.2 Lymph % (Auto) 25.9 [place] % (Auto) 7.9 Eos % (Auto) 1.4 Baso % (Auto) 0.8 Absolute Neuts (auto) 6.5 Absolute Lymphs (auto) 2.67 Nucleated RBC % 0 Sodium 137 Potassium 4.0 Chloride 100 Carbon Dioxide 30.0 Anion Gap 6 BUN 19 H Creatinine 1.23 H Estim Creat Clear Calc 46.24 Est GFR (MDRD) Af Amer 55 L Est GFR (MDRD) Non-Af 45 L BUN/Creatinine Ratio 15.4 Glucose 130 H Calcium 9.1 Troponin I High Sens 8 B-Natriuretic Peptide 20.3 Radiography Diagnostic Testing: Clinical Impression(s) from Imaging Studies Chest X-Ray 06/16/24 16:10 IMPRESSION: No acute cardiopulmonary pathology Electronically Signed: Terrence Castro MD at 16:29 EST Reading Location ID and State: [facility] / [place] Tel , Service support , Discharge Plan Triage Chief Complaint: Edema ED Provider: Barney Powell Dx/Rx/DC Orders Clinical Impression: COPD exacerbation Prescriptions: New prednisone 50 mg tablet 50 mg PO DAILY 5 Days Qty: 5 0RF doxycycline hyclate 100 mg capsule 100 mg PO BID 5 Days Qty: 10 0RF No Action lansoprazole [Prevacid] 30 mg capsule,delayed release(DR/EC) 30 mg PO QHS duloxetine [Cymbalta] 30 mg capsule,delayed release(DR/EC) 30 mg PO DAILY doxazosin [Cardura] 2 mg tablet 2 mg PO QHS Trulicity 1.5 mg/0.5 mL pen injector 1.5 mg subcut TH pioglitazone [Actos] 15 mg tablet 15 mg PO DAILY cholecalciferol (vitamin D3) [Vitamin D3] 50 mcg (2,000 unit) capsule 50 mcg PO DAILY metoprolol succinate 100 MG tablet 100 mg PO DAILY levothyroxine 50 MCG tablet 50 mcg PO DAILY rosuvastatin 10 MG tablet 10 mg PO QHS metformin 500 MG tablet 500 mg PO QHS Patient Comments: albuterol sulfate 1 PUFF inhaler 1 puff INHALATION Q4H PRN PRN (Reason: COPD) bupropion HCl [Wellbutrin XL] 150 MG tablet extended release 24 hr 150 mg PO DAILY spironolactone [Aldactone] 25 mg tablet 25 mg PO DAILY lisinopril 40 mg tablet 20 mg PO DAILY Stiolto Respimat 2.5-2.5 mcg/actuation mist 2 puff INHALATION QHS Rx Instructions: administer at approximately the same time(s) each day acetaminophen 500 mg Tablet 500 mg PO Q6H 7 Days Qty: 28 0RF sennosides-docusate sodium [Stool Softener-Stimulant Laxat] 8.6-50 mg Tablet 2 tab PO BID PRN (Reason: constipation) 7 Days Qty: 28 0RF Primary Care Provider: Scott Mendez Referrals: Scott Mendez MD [Primary Care Provider] - Activity Restrictions/Additional Instructions: Return with worsening symptoms or any other concerns. Follow-up with vascular surgery as we discussed here. Take antibiotics and steroids as prescribed. Print Language: Khmer Disposition Disposition: Home, Self Care
[2024-06-16 16:33] LABS: Absolute Lymphocyte Count 2.67 X10^3/uL (0.83-4.51); Absolute Neutrophil Count 6.5 X10^3/uL (2.0-7.7); Basophil# 0.08 X10^3/uL; Basophil% 0.8 % (0-1); Eosinophil# 0.14 X10^3/uL; Eosinophils% 1.4 % (0-5); Hematocrit 33.8 % (37-47); Hemoglobin 10.9 g/dL (12.0-15.0); Lymphocyte # 2.67 X10^3/ul (0.83-4.51); Lymphocyte % 25.9 % (19-41); Mean Corp Hgb Conc 32.2 g/dL (32-36); Mean Corpuscular Hgb 32.9 pg (27.0-32.0); Mean Corpuscular Volume 102.1 fL (81-99); Mean Platelet Vol. 11.7 fl (6.2-12.0); Monocyte# 0.81 X10^3/uL; Monocyte% 7.9 % (0-10); NRBC Flagged by Analyzer 0 % (0-5); Neutrophil # 6.53 X10^3/uL (2.7-7.7); Neutrophil % 63.2 % (47-70); Platelet Count 276 K/mm3 (150-450); RBC Distribution Width CV 14.6 % (11.6-14.6); RBC Distribution Width SD 54.4 fl (35.1-43.9); Red Blood Count 3.31 M/mm3 (4.2-5.4); White Blood Count 10.3 K/mm3 (4.4-11.0)
[2024-06-16 16:38] VITALS: PULSE 78; RESP 17
[2024-06-16] MEDS: predniSONE 20 MG Tablet 60 MG PO (16:38)
[2024-06-16] MEDS: Ipratropium/Albuterol Sulfate 3 ML AMPUL.NEB INHALATION ×3 (16:38→16:40)
[2024-06-16 16:40] LABS: Anion Gap 6 (5-15); BUN 19 mg/dL (7-18); BUN/Creat Ratio 15.4 RATIO (10-20); Calcium,Total 9.1 mg/dL (8.5-10.1); Chloride 100 mmol/L (98-107); Creatinine, Serum 1.23 mg/dL (0.55-1.02); EST Glomerular Filtration Rate 45 mL/min (>60); Est Glom Filt Rate - Afr Amer 55 mL/min (>60); Estimated Creatinine Clearance 46.24 ml/min; Glucose 130 mg/dL (74-106); Sodium Level 137 mmol/L (136-145); Troponin-I HS 8 pg/mL (3.0-54.0)
[2024-06-16 17:23] VITALS: BP 135/58; PULSE 89; RESP 12; O2SAT 99
[2024-06-16 17:26] LABS: BNP,B-Type NATRIURETIC PEPTIDE 20.3 pg/mL (0-100)
[2024-06-16 18:36] VITALS: BP 135/58; PULSE 89; RESP 12; TEMP 36.6; O2SAT 99
== END 2024-06-16 18:53 | disposition home or self-care (01) ==
PROVIDERS: Emergency Provider Emergency Medicine; PCP Family Medicine; Visit Provider Emergency Medicine
DX: J44.1 Chronic obstructive pulmonary disease with (acute) exacerbation (principal); E11.9 Type 2 diabetes mellitus without complications; R60.0 Localized edema; E78.00 Pure hypercholesterolemia, unspecified; I10 Essential (primary) hypertension; F17.210 Nicotine dependence, cigarettes, uncomplicated; R06.02 Shortness of breath; Z79.84 Long term (current) use of oral hypoglycemic drugs; Z79.85 Long-term (current) use of injectable non-insulin antidiabetic drugs; Z79.899 Other long term (current) drug therapy
CPT/HCPCS: 71046; 80048; 83880; 84484; 85025; 93005; 93971; 94640; 99284; A4216

== ENCOUNTER → 2024-07-29 | Outpatient (CLI) | payer MEDICARE, SELFPAY ==
[2024-07-29 19:13] LABS: Anion Gap 8 (5-15); BUN 24 mg/dL (7-18); BUN/Creat Ratio 18.5 RATIO (10-20); Calcium,Total 9.2 mg/dL (8.5-10.1); Chloride 102 mmol/L (98-107); EST Glomerular Filtration Rate 43 mL/min (>60); Est Glom Filt Rate - Afr Amer 51 mL/min (>60); Glucose 104 mg/dL (74-106); Potassium 4.1 mmol/L (3.5-5.1); Sodium Level 139 mmol/L (136-145)
== END | disposition home or self-care (01) ==
LOC: MFPLAB 14:39
PROVIDERS: PCP Family Medicine; Referring Provider Family Medicine; Visit Provider Family Medicine
DX: R60.0 Localized edema (principal)
CPT/HCPCS: 36415; 80048

== ENCOUNTER → 2024-09-23 | Outpatient (CLI) | payer MEDICARE, SELFPAY ==
[2024-09-23 17:50] LABS: Hematocrit 32.8 % (37-47); Hemoglobin 10.4 g/dL (12.0-15.0); Mean Corp Hgb Conc 31.7 g/dL (32-36); Mean Corpuscular Volume 100.9 fL (81-99); Mean Platelet Vol. 11.6 fl (6.2-12.0); Platelet Count 224 K/mm3 (150-450); RBC Distribution Width CV 14.3 % (11.6-14.6); RBC Distribution Width SD 51.9 fl (35.1-43.9); Red Blood Count 3.25 M/mm3 (4.2-5.4); White Blood Count 7.9 K/mm3 (4.4-11.0)
[2024-09-23 18:31] LABS: PTHIN 42 pg/mL (11-61)
[2024-09-23 18:45] LABS: Anion Gap 15 (5-15); BUN 12 mg/dL (4-19); BUN/Creat Ratio 12.5 RATIO (10-20); Calcium,Total 8.8 mg/dL (7.6-11.0); Carbon Dioxide 24.7 mmol/L (21.0-32.0); Chloride 98 mmol/L (98-108); Cholesterol 207 mg/dL (<=200); Creatinine, Serum 0.96 mg/dL (0.70-1.20); EST Glomerular Filtration Rate 62 (>60); Glucose 118 mg/dL (70-99); High Density Lipoprotein 48 mg/dL; Low Density Lipoprotein Calc. 113 mg/dL; Potassium 3.9 mmol/L (3.3-5.1); Sodium Level 138 mmol/L (133-145); Triglycerides 233 mg/dL; Very Low Density Lipoprotein 47 mg/dL (5-40); Vitamin B12 219 pg/mL (180-914); Vitamin D,25 Hydroxy 41.7 ng/mL (30-100); cholesterol:hdl ratio screen 4.33
[2024-09-23 19:08] LABS: Iron 40 ug/dL (50-170)
== END | disposition home or self-care (01) ==
LOC: MFPLAB 14:09
PROVIDERS: PCP Family Medicine; Referring Provider Family Medicine; Visit Provider Family Medicine
DX: E11.22 Type 2 diabetes mellitus with diabetic chronic kidney disease (principal); N18.30 Chronic kidney disease, stage 3 unspecified
CPT/HCPCS: 36415; 80048; 80061; 82306; 82607; 83540; 83970; 84443; 85027

== ENCOUNTER 2024-12-02 12:06 | Outpatient (CLI) | payer MEDICARE, SELFPAY ==
--- NOTE | 2024-12-02 12:49 | RAD_ITS ---
PROCEDURE: CHEST PA AND LATERAL 12/02/2024 REASON FOR EXAM: COPD TECHNIQUE: CHEST PA AND LATERAL COMPARISON: 06/16/2024. FINDINGS: The lungs are emphysematous There is no demonstrated acute parenchymal abnormality. There is no demonstrated pleural abnormality. Enlarged cardiac silhouette. Normal mediastinum and cindy. Normal visualized pulmonary arteries. Atheromatous plaques of the visualized aortic arch and descending thoracic aorta. Diffuse spondylosis of the visualized thoracic spine. Normal visualized ribs, clavicles. Degenerative joint disease. There is no demonstrated abnormality of the visualized soft tissue structures of the upper abdomen. RAD/Chest PA and Lateral IMPRESSION: No evidence for acute abnormality. [facility]
[2024-12-02 15:47] LABS: Absolute Lymphocyte Count 2.06 X10^3/uL (0.83-4.51); Absolute Neutrophil Count 6.1 X10^3/uL (2.0-7.7); Basophil# 0.04 X10^3/uL; Basophil% 0.4 % (0-1); Eosinophil# 0.15 X10^3/uL; Eosinophils% 1.6 % (0-5); Hematocrit 31.3 % (37-47); Hemoglobin 9.9 g/dL (12.0-15.0); Lymphocyte # 2.06 X10^3/ul (0.83-4.51); Lymphocyte % 22.4 % (19-41); Mean Corp Hgb Conc 31.6 g/dL (32-36); Mean Corpuscular Hgb 31.7 pg (27.0-32.0); Mean Corpuscular Volume 100.3 fL (81-99); Mean Platelet Vol. 11.9 fl (6.2-12.0); Monocyte# 0.77 X10^3/uL; Monocyte% 8.4 % (0-10); NRBC Flagged by Analyzer 0 % (0-5); Neutrophil # 6.13 X10^3/uL (2.7-7.7); Neutrophil % 66.7 % (47-70); Platelet Count 235 K/mm3 (150-450); RBC Distribution Width CV 15.5 % (11.6-14.6); RBC Distribution Width SD 56.1 fl (35.1-43.9); Red Blood Count 3.12 M/mm3 (4.2-5.4); White Blood Count 9.2 K/mm3 (4.4-11.0)
[2024-12-02 17:01] LABS: ALB/GLOB Ratio 1.6 RATIO (0.9-2.4); AST(SGOT) 20 U/L (<=31); Alanine Aminotransfer ALT/SGPT 13 U/L (<=34); Alkaline Phosphatase 105 U/L (35-104); Anion Gap 14 (5-15); BUN 32 mg/dL (4-19); BUN/Creat Ratio 24.8 RATIO (10-20); Calcium,Total 9.6 mg/dL (7.6-11.0); Carbon Dioxide 23.5 mmol/L (21.0-32.0); Chloride 100 mmol/L (98-108); Creatinine, Serum 1.29 mg/dL (0.70-1.20); EST Glomerular Filtration Rate 44 (>60); Globulin 2.6 g/dL (2.2-4.2); Glucose 146 mg/dL (70-99); Potassium 4.5 mmol/L (3.3-5.1); Protein, Total 6.6 g/dL (5.9-8.4); Sodium Level 137 mmol/L (133-145); Total Bilirubin 0.27 mg/dL (0.00-1.30)
== END 2024-12-02 23:59 | disposition home or self-care (01) ==
PROVIDERS: PCP Family Medicine
DX: J44.9 Chronic obstructive pulmonary disease, unspecified (principal)
CPT/HCPCS: 36415; 71046; 80053; 84443; 85025

== ENCOUNTER → 2025-03-12 | Outpatient (CLI) | payer MEDICARE, SELFPAY ==
[2025-03-12 12:15] LABS: Hematocrit 35.5 % (37-47); Hemoglobin 11.8 g/dL (12.0-15.0); Mean Corp Hgb Conc 33.2 g/dL (32-36); Mean Corpuscular Volume 98.6 fL (81-99); Mean Platelet Vol. 10.8 fl (6.2-12.0); Platelet Count 242 K/mm3 (150-450); RBC Distribution Width CV 15.0 % (11.6-14.6); RBC Distribution Width SD 53.3 fl (35.1-43.9); Red Blood Count 3.60 M/mm3 (4.2-5.4); White Blood Count 9.2 K/mm3 (4.4-11.0)
[2025-03-12 12:45] LABS: Creatinine, Urine (random) 185.00 mg/dL (28.00-217.00); Microalbumin,Random Urine 15.1 mg/L (<20 mg/L)
[2025-03-12 13:01] LABS: Anion Gap 13 (5-15); BUN 17 mg/dL (4-19); BUN/Creat Ratio 16.6 RATIO (10-20); Calcium,Total 9.1 mg/dL (7.6-11.0); Carbon Dioxide 26.2 mmol/L (21.0-32.0); Chloride 102 mmol/L (98-108); Glucose 119 mg/dL (70-99); Potassium 4.2 mmol/L (3.3-5.1)
[2025-03-12 13:31] LABS: Vitamin B12 > 4000 pg/mL (180-914)
== END | disposition home or self-care (01) ==
LOC: MFPLAB 10:54
PROVIDERS: PCP Family Medicine; Visit Provider Family Medicine
DX: E11.59 Type 2 diabetes mellitus with other circulatory complications (principal); E03.9 Hypothyroidism, unspecified
CPT/HCPCS: 36415; 80048; 82043; 82570; 82607; 84443; 85027

== ENCOUNTER → 2025-04-06 | Outpatient (CLI) | payer MEDICARE, SELFPAY ==
--- NOTE | 2025-04-06 16:07 | RAD_ITS ---
PROCEDURE: CHEST PA AND LATERAL 04/06/2025 REASON FOR EXAM: COUGH TECHNIQUE: Procedure Code: RADCXR Modality: DX Procedure: CHEST PA AND LATERAL COMPARISON: 12/02/2024 FINDINGS: Lungs/Pleura: Chronic interstitial emphysematous lung changes. No appreciable focal consolidation, pneumothorax or pleural effusion. No vascular congestion. Heart/Mediastinum: Within normal limits. Bones/Soft tissues: Mild multilevel degenerative changes of the spine. RAD/Chest PA and Lateral IMPRESSION: Chronic emphysematous lung changes. No focal consolidation or pleural effusion . Reading Location: [id number]
== END | disposition home or self-care (01) ==
LOC: MTRAD 16:07
PROVIDERS: PCP Family Medicine; Referring Provider Physician Assistant; Visit Provider Physician Assistant
DX: R05.9 Cough, unspecified (principal)
CPT/HCPCS: 71046